=== PATIENT | female | born 1970 | race Asian ===

== ENCOUNTER 2023-09-10 14:55 | Outpatient (AMB) | payer OTHER, SELFPAY ==
--- NOTE | 2023-09-10 14:22 | A.SPINEOV_ITS ---
Intake Visit Reasons: lumbar stenosis Intake Note: Ms. Ayers is here today c/o back pain. Line Closer Required: Yes Line Closer Name: Reji Assessment & Plan Assessment & Plan (1) Cervical myelopathy: Code(s): G95.9 - Disease of spinal cord, unspecified Category: Medical Plan Dear colleague, Thank you for referring Yadiel to our office today. She is known to our service and has been previously evaluated at [facility]. She is a pleasant 53 y/o F who comes in today with a chief complaint of neck and back pain. She reports that her neck pain began roughly 10 years ago and worsened over the course of the last year. She now is experiencing shooting pains into her left upper extremity (over her deltoid into her left elbow) and she reports a feeling of numbness in her left forearm and left hand. In addition to this she presents with low-mid back pain. She states that this too had been ongoing for many years, but became more noticeable in the last few years. She reports left-sided leg pain in her left thigh and left foot. She states that positional changes do not affect her pain, but lifting does make her pain worse. She has no significant issues with walking. In the last few years she has attempted physical therapy multiple times, the last of which ended 2 months ago. She has been to field care advocate, acupuncture, and has had multiple rounds of cortisone injections. She has tried a plethora of falj-odv-skwfwgs remedies including herbal remedies without significant relief of symptoms. PMH: Bilateral carpal tunnel syndrome, patient wears wrist braces at night. Social hx: The patient does not smoke, reports no substance use. Medications: Dulcolax, Restasis, Nexplanon, meclizine, melatonin, meloxicam, omeprazole. Allergies: NKDA. Physical exam: The patient has 5/5 strength in her upper and lower extremities. She has no significant sensational deficits. Her reflexes are 3+ hyperreflexive diffusely. She is able to ambulate well and rises from a seated position without difficulty. (+) Neves's bilaterally, more noticeable on the left. (-) Lhermitte's. (-) straight leg raise bilaterally. Imaging review: MRI of the cervical spine completed at [facility] greater than 1 year ago shows mild-moderate central canal and foraminal stenosis at C4-5 and C5-6. There is loss of normal cervical lordosis, which is also seen on x-ray imaging of the cervical spine which we reviewed that was completed at [facility]. MRI of the lumbar spine completed at [facility] shows severe left-sided foraminal stenosis at L4-5, and moderate central canal stenosis at this level. Impression: Andria is a pleasant 53-year-old female who comes in today with a chief complaint of both back and neck pain. In regards to her neck, I am concerned that she has having a radiculopathy into her left upper extremity and also has hyperreflexia and Neves's sign on exam. Her imaging of the cervical spine is more than 1-year-old, and when reviewing exam she had completed by the neurosurgery service at [facility] [place] after this MRI, it does not appear she had my elopathic reflexes. I would like to have a repeat cervical MRI completed to rule out an new / acute spinal cord impingement. For her back, it does appear that she has severe left-sided foraminal stenosis at L4-5. This is likely causing her thigh and foot pain on the left. This is definitely something that we would typically addressed surgically, with something such as an L4-5 left- sided lumbar decompression. Before discussing this, I would like to have the patient complete her cervical spine MRI to rule out a more serious pathology. We will see her back in the clinic to discuss her MRI results after it is completed. Thank you for allowing us to care for your patient. The total time spent with this visit with this patient was 65 minutes reviewing history, physical exam, MRI cervical spine, lumbar spine, and x-ray imaging review, and implementation of treatment plan or further diagnostic testing Miguel Rivas MD,PhD [facility] Orders: Orders MR cervical spine wo con Today G95.9 - Disease of spinal cord, unspecified Coding Level of Care Code New Pt Level 5 (38109) Diagnoses Cervical myelopathy G95.9
== END 2023-09-10 15:21 | disposition home or self-care (01) ==
PROVIDERS: PCP Internal Medicine; Referring Provider Physician Assistant; Visit Provider Physician Assistant
DX: G95.9 Disease of spinal cord, unspecified (principal)
CPT/HCPCS: 99205

== ENCOUNTER → 2023-09-10 14:55 | Outpatient (BNVA) | payer OTHER, SELFPAY | PROVIDERS: PCP Internal Medicine; Referring Provider Physician Assistant; Visit Provider Physician Assistant | DX: G95.9 Disease of spinal cord, unspecified (principal); M54.2 Cervicalgia | CPT/HCPCS: 99202 ==

== ENCOUNTER 2023-09-23 19:24 | Outpatient (REF) | payer OTHER, SELFPAY ==
--- NOTE | ~2023-09-23 | MR_ITS ---
EXAMINATION: MR CERVICAL SPINE WITHOUT CONTRAST CLINICAL INFORMATION: 53-year-old with self-reported neck pain and bilateral hand numbness of chronic duration. Diseases of spinal cord, unspecified. COMPARISON: None available. TECHNIQUE: MRI of the cervical spine was obtained using routine sequences without contrast. FINDINGS: Alignment: There is moderate reversal of the normal cervical lordotic curvature centered at C4. There is slight retrolisthesis at C5-C6. Craniocervical Junction/C1-C2 Articulations: Intact and aligned. Visualized Intracranial Structures: Within normal limits. Vertebral Bodies: Vertebral body heights are well-maintained. Disc Spaces and Endplates: The intervertebral disc space heights are well-maintained. There are minor degrees of anterior marginal endplate spurring between at C4-C5 and C6-C7 inclusive. There is minimal dystrophic calcification or ossification of the anterior longitudinal ligament at these levels. Bone Marrow: Minimal marrow edema noted in the dens, which is nonspecific. No other bone marrow edema and no suspicious marrow replacing process. C2-C3: No disc herniation or canal stenosis. Hmcv-yr-hbtzkgvq facet joint arthrosis on the right is noted with iyvc-in-lejkjjbp right-sided neural foraminal stenosis. C3-C4: Central to left central disc herniation noted with flattening of the ventral dural sac centrally and slightly asymmetric to the left, with slight ventral cord deformity/impingement associated with mild spinal canal stenosis. Minor facet joint arthropathy on the left with minor uncinate process spurring bilaterally without significant neural foraminal stenosis. C4-C5: Small central disc herniation with mild indentation of the ventral thecal sac centrally without cord impingement. There is a slight degree of ventral cord deformity centrally, likely chronic, which may be related to combination of lordotic reversal and/or previous cord impingement. No significant spinal canal stenosis. Uncovertebral spurring is noted bilaterally with pklt-bu-vwggullo facet joint arthropathy, with borderline right and mild left-sided foraminal narrowing. C5-C6: Broad-based central disc herniation, with the flattening the ventral dural sac noted without cord impingement or canal stenosis. Uncovertebral spurring is noted with bilateral facet joint arthropathy, with moderate right-sided neural foraminal stenosis. C6-C7: Broad-based central to right paramedian disc protrusion, with flattening of the ventral dural sac without cord impingement. Ligamentum flavum thickening is noted with mild spinal canal stenosis. Uncovertebral spurring and facet joint arthropathy noted bilaterally with moderate bilateral neural foraminal stenosis. C7-T1: Tiny central disc protrusion noted. No cord impingement or canal stenosis. No significant DJD or neural foraminal stenosis. Small perineural cyst noted in the left neural foramen. T1-T2: No disc herniation or canal stenosis. No significant DJD or neuroforaminal stenosis. Spinal Cord: Allowing for artifacts, the cervical and visualized upper thoracic spinal cord demonstrates no definite focal lesion, edema or syrinx. Extracranial Soft Tissues: The visualized extracranial head/neck soft tissues are unremarkable within the limitations of the study. Signal voids are seen in the visualized major neck vessels. MR/MR cervical spine wo con IMPRESSION: 1. Lordotic reversal centered at C4 with slight retrolisthesis at C5-C6. 2. Multilevel central disc herniations as described above, with slight ventral cord deformity/impingement on the left at C3-C4 and slight ventral cord deformity centrally at C4-C5, likely chronic. Mild spinal canal stenosis at C3-C4 and C6-C7. 3. Multilevel DJD as described above with gdjf-kd-mjogdzvn right-sided neural foraminal stenosis at C2-C3, mild left-sided neural foraminal stenosis at C4-C5, moderate right-sided neural foraminal stenosis at C5-C6 and moderate bilateral neural foraminal stenosis at C6-C7. 4. Minimal nonspecific marrow edema in the dens, likely reactive.
== END 2023-09-23 19:25 | disposition home or self-care (01) ==
LOC: HO.MRI 19:24
PROVIDERS: Visit Provider Physician Assistant
DX: G95.9 Disease of spinal cord, unspecified (principal)
CPT/HCPCS: 72141

== ENCOUNTER 2023-10-20 14:03 | Outpatient (AMB) | payer OTHER, SELFPAY ==
--- NOTE | 2023-10-20 14:26 | HO.SPINEOV ---
Intake Visit Reasons: MRI follow up Intake Note: Ms. Ayers is here today for MRI F/u Six Color Press Operator Required: No Assessment & Plan Assessment & Plan (1) Lumbar stenosis with neurogenic claudication: Code(s): M48.062 - Spinal stenosis, lumbar region with neurogenic claudication Category: Medical Plan HPI: Yadiel is a pleasant 53 y/o F who comes in today for a follow-up visit after having a cervical MRI completed, secondary to possible myelopathic reflexes discovered on exam, alongside cervical and thoracic neck pain. We were previously planning on addressing the severe left-sided foraminal stenosis at L4-5, as she has disclosed symptoms of both neurogenic claduication (can't walk for more than 2-3 minutes without needing to rest) and shooting radiculopathy down her left leg. However, I wanted to ensure there was no causative agent for her hyperreflexia and (+) Neves's sign on exam. Imaging review: We reviewed the cervical MRI together which shows some straightening of the normal lordotic curvature starting around C4, but aside from that there is no significant central canal or foraminal stenosis. When discussing these results with Yadiel she continues to express concerns regarding pains in her lower neck and middle back. She points to her lower cervical / upper thoracic spine when describing these pains. She does report that they feel like they wrap around the sides of her body towards her abdomen / chest. Exam: She continues to have hyperreflexia and a weakly positive Neves's on exam. She ambulates well and rises from a seated position without difficulty. No gait spasticity. She also has what I would call 1 beat of clonus when testing her bilateral feet. (-) Babinski's bilaterally. Plan: The patient could either have a strangely confounded physical exam as a result of some source of secondary tendon hyper spasticity, or she could have a true myelopathy. She does have a history of scoliosis and states she has not had a thoracic MRI completed in many years. Her lumbar spine MRI is also more than 2 years old per her report. When reviewing the MRI that was done 2 years prior to that her stenosis had significantly progressed at L4-5, and I have reason to believe that it has gotten worse as she is now reporting significant neurogenic claudication with difficulty ambulating for more than 2-3 minutes until she has to rest or lean over something to mitigate her symptoms. Thus, I will be ordering her both a thoracic MRI and a lumbar MRI for the dual purpose of ruling out a myelopathy completely, and obtaining updated imaging of her severe stenosis at L4-5 so we can make a surgical decision for her. Total amount of time spent in this visit was 30 minutes in discussion of symptoms, MRI imaging results and subsequent plan of care Miguel Rivas MD,PhD [facility] Orders: Orders MR lumbar spine wo con Today M48.062 - Spinal stenosis, lumbar region with neurogenic claudication MR thoracic spine wo con Today G95.9 - Disease of spinal cord, unspecified Coding Level of Care Code Est Pt Level 4 (30426) Diagnoses Lumbar stenosis with neurogenic claudication M48.062
== END 2023-10-20 14:43 | disposition home or self-care (01) ==
PROVIDERS: PCP Internal Medicine; Visit Provider Physician Assistant
DX: M48.062 Spinal stenosis, lumbar region with neurogenic claudication (principal)
CPT/HCPCS: 99214

== ENCOUNTER → 2023-10-20 14:03 | Outpatient (BNVA) | payer OTHER, SELFPAY | PROVIDERS: PCP Internal Medicine; Visit Provider Physician Assistant | DX: M48.062 Spinal stenosis, lumbar region with neurogenic claudication (principal) | CPT/HCPCS: 99212 ==

== ENCOUNTER 2023-12-08 17:48 | Outpatient (REF) | payer OTHER, SELFPAY ==
--- NOTE | ~2023-12-08 | MR_ITS ---
EXAMINATION: MR THORACIC SPINE WITHOUT CONTRAST MR LUMBAR SPINE WITHOUT CONTRAST CLINICAL INFORMATION: Neck pain, spinal stenosis, neurogenic claudication COMPARISON: None. TECHNIQUE: MRI of the thoracic and lumbar spine was obtained using routine sequences without the administration of intravenous contrast. FINDINGS: MRI THORACIC SPINE: Straightening of the normal thoracic kyphosis. No significant spondylolisthesis. Thoracic vertebral body heights are maintained. No expansile or destructive osseous lesion. The thoracic spinal cord is normal in signal intensity. No significant spinal canal or neural foraminal stenosis. MRI LUMBAR SPINE: This examination assumes the presence of 5 lumbar type vertebral bodies. For the purposes of this examination, the L5-S1 intervertebral disc space is visualized on axial series 5 image 25. The normal lumbar lordosis is preserved. Shallow levocurvature of the lumbar spine. Trace retrolisthesis of L4-L5. Multilevel Schmorl's nodes are noted. Otherwise, lumbar vertebral body heights are maintained. Mild endplate edema along the inferior left aspect of L4. The conus medullaris and cauda equina nerve roots are unremarkable; the conus terminates at the level of L1. L1-L2: Trace annular bulge and mild facet arthropathy. The spinal canal and neural foramen are patent. L2-L3: Trace disc bulge. Facet arthropathy with ligamentum flavum redundancy. The spinal canal and neural foramen remain patent. L3-L4: Disc bulge. Facet arthropathy with ligamentum flavum redundancy. The spinal canal and right neural foramen are patent. Mild narrowing of the left neural foramen. L4-L5: Disc bulge with right far lateral and foraminal annular fissure. Additional left subarticular annular fissure and left foraminal disc protrusion. Facet arthropathy with ligamentum flavum redundancy. Narrowing left greater than right lateral recesses with abutment of the descending left greater than right L5 nerve roots. Mild to moderate central canal stenosis. Mild to moderate left greater than right neural foraminal stenosis. L5-S1: Facet arthropathy ligamentum flavum redundancy. The spinal canal and neural foramen are patent. MR/MR thoracic spine wo con IMPRESSION: No significant spinal canal or neural foraminal stenosis in the thoracic spine. At L4-L5 there is a disc bulge with mild to moderate spinal canal stenosis and narrowing of the left greater than right lateral recess with abutment of the descending left greater than right L5 nerve roots. Electronically signed by: Aravind Bergman MD 01/07/2024 10:36 PM EDT RP
== END 2023-12-08 17:49 | disposition home or self-care (01) ==
LOC: HO.MRI 17:48
PROVIDERS: PCP Internal Medicine; Visit Provider Physician Assistant
DX: M48.062 Spinal stenosis, lumbar region with neurogenic claudication (principal); G95.9 Disease of spinal cord, unspecified
CPT/HCPCS: 72146; 72148

== ENCOUNTER → 2024-01-18 15:32 | Outpatient (BNVA) | payer OTHER, SELFPAY | PROVIDERS: PCP Internal Medicine; Visit Provider Physician Assistant | DX: M54.50 Low back pain, unspecified (principal) | CPT/HCPCS: 99212 ==

== ENCOUNTER 2024-05-24 14:56 | Outpatient (AMB) | payer OTHER, SELFPAY ==
--- NOTE | 2024-05-24 14:57 | HO.SPINEOV ---
Intake Visit Reasons: discuss ordering EMG Intake Note: Ms. Guerra is here to discuss ordering an EMG. Branch Manager Required: Yes Branch Manager Services: Branch Manager Present Branch Manager Name: Reji Assessment & Plan Assessment & Plan (1) Hypoesthesia of skin: Code(s): R20.1 - Hypoesthesia of skin Category: Medical Plan HPI: Yadiel comes back in to see us again today after being evaluated by [facility]. They recommended an EMG to r/o carpal tunnel syndrome which they believe is causing her hand tingling / numbness. They did not comment on any other physical exam findings. She reports that she continues to have mid-thoracic back pain, despite a unremarkable MRI of the thoracic spine completed back in November. Exam: Yadiel has 5/5 strength in her upper extremities. (+) Tinel's at the wrist on the right, (+) Phalen's on the right. (-) Neves's, (-) Clonus. Plan: I will order Yadiel an EMG of the upper extremities to evaluate for any median or brachial plexus neuropathy. I will call her after this is complete with the results. Miguel Rivas MD,PhD [facility] Orders: Orders NE electromyogram (EMG) Today R20.1 - Hypoesthesia of skin Coding Level of Care Code Est Pt Level 2 (29944) Diagnoses Hypoesthesia of skin R20.1
--- OUTSIDE RECORDS SUMMARY | 2024-05-24 14:59 | XMS_ITS | Data Portability ---
Author Organization JUAN A Dowell s, [address] Address [address] [place] [address] Care Team Providers Care Ross Carrier Driver Name Role Phone [facility] Care Provider Assessment No assessment recorded. Plan of Treatment Reminders Order Date Submit Date Provider Last Modified By Organization Details Last Modified Time Details Appointments None recorded. Lab urinalysis, dipstick 2023 024 [email or web address] [facility], [address] [place], [address], 4 10:58:11 CMP, serum or plasma 2023 024 [facility], [address] [place] [address], [place], [address], 4 06:07:45 Referral emergency medicine referral [email or web address] [facility], [address] [place], [address], 4 15:00:03 Procedures cerumen removal (PROC) 2022 023 [email or web address] Not available 3 07:53:33 Surgeries None recorded. Imaging XR, neck, soft tissue - r/o foreign body (chicken bone), air in soft tissue 2023 024 acardinal 3 [facility], [address] [place] [address]., [place], [address], 4 15:00:03 Medication Orders meclizine 25 mg tablet 2022 023 [facility][id number], [address] [place] [address], [address], 3 09:04:06 prednisone 20 mg tablet 2022 023 [email or web address] 31 [facility] #[id number], [address] [place] [address], [address], 4 10:40:52 fexofenadin e-pseudoeph edrine ER 180 mg-240 mg tablet,ext. release 24 hr 2022 023 BALJIT [facility] #[id number], [address] [place] [address], [address], 3 09:41:03 Patient TargetsNo targets recorded. Patient Instructions Encounter Date Encounter Id Patient Instructions Last Modified By Organization Details Last Modified Time 10/14/2022 [id number] earwax blockage: care instructions [email or web address] Not available 10/14/2022 11:30:52 tinnitus: care instructions [email or web address] Not available 10/14/2022 11:37:19 tinnitus information [email or web address] Not available 10/14/2022 11:37:19 Your earwax was completely removed and does not appear to be the cause of your tinnitus. Keep the appointment that you have scheduled for 10/29/22 with your ENT doctor. See printed instructions. Seek Emergency Medical evaluation for any worsening symptoms. [email or web address] Not available 10/14/2022 11:58:14 10/26/2022 [id number] dizziness: care instructions Not available 10/26/2022 09:41:00 tinnitus: care instructions Not available 10/26/2022 09:41:00 11/01/2022 [id number] benign paroxysma l positional vertigo (bppv): care instructions Not available 11/01/2022 08:55:57 tinnitus: care instructions Not available 11/01/2022 08:55:57 You have some retraction of your ear drum on the right side which may or may not be contributing to your symptoms. It is sometimes difficult to treat and often resolves itself given time. In the mean time we are going to try and target and treat your dizziness wiht medication. Please follow up with your PCP and /or ENT providers Not available 11/01/2022 08:55:56 09/28/2023 [id number] You have been advised to go now to the Emergency Department for further evaluation of a foreign body (?chicken bone) in your throat. [facility] ER has been advised of your impending arrival. Do not eat or drink anything until cleared by ER staff. You evaluation, treatment and final disposition will be determined by ER staff. [email or web address] Not available 09/28/2023 14:53:52 02/01/2024 [id number] frequent urination: care instructions [email or web address] Not available 02/01/2024 10:58:09 Reason for Referral Emergency Medicine Referral for Foreign body in pharynx Hypopharyngeal foreign body ? chicken bone since last night Referring Physician: Mitzy Ellsworth, Urgent Care, Encounter Date: 09/28/2023 Results Created Date Observation Date Name Description Value Unit Range Abnormal Flag Note LastModifiedBy Organization Detail LastModifiedTime 02/01/2002/02/2024 COMP. METAB OLIC PANEL (14) glucose 105 mg/dL 70-99 above high normal Not Available [facility] ([facility]) [address] [place], [address], 02/02/2024 06:07:45 02/01/20 24 02/02/2024 COMP. METAB OLIC PANEL (14) BUN 11 mg/dL 6-24 normal Not Available [facility] ([facility]) [address] [place], [address], 02/02/2024 06:07:45 02/01/20 24 02/02/2024 COMP. METAB OLIC PANEL (14) creatinine 0.58 mg/dL 0.57-1 .00 normal Not Available [facility] ([facility]) [address] [place], [address], 02/02/2024 06:07:45 02/01/20 24 02/02/2024 COMP. METAB OLIC PANEL (14) eGFR 109 mL/mi n/1.7 3 >59 normal Not Available [facility] ([facility]) [address] [facility], [place], [address], 02/02/2024 06:07:45 02/01/20 24 02/02/2024 COMP. METAB OLIC PANEL (14) BUN/creatini ne ratio 19 9-23 normal Not Available [facility] ([facility]) [address] [facility], [place], [address], 02/02/2024 06:07:45 02/01/20 24 02/02/2024 COMP. METAB OLIC PANEL (14) sodium 142 mmol/ L 134-14 4 normal Not Available [facility] ([facility]) [address] [facility], [place], [address], 02/02/2024 06:07:45 02/01/20 24 02/02/2024 COMP. METAB OLIC PANEL (14) potassium 4.2 mmol/ L 3.5-5. 2 normal Not Available [facility] ([facility]) [address] [facility], [place], [address], 02/02/2024 06:07:45 02/01/20 24 02/02/2024 COMP. METAB OLIC PANEL (14) chloride 102 mmol/ L 96-106 normal Not Available [facility] ([facility]) [address] [facility], [place], [address], 02/02/2024 06:07:45 02/01/20 24 02/02/2024 COMP. METAB OLIC PANEL (14) carbon dioxide, total 26 mmol/ L 20-29 normal Not Available [facility] ([facility]) [address] [facility], [place], [address], 02/02/2024 06:07:45 02/01/20 24 02/02/2024 COMP. METAB OLIC PANEL (14) calcium 9.9 mg/dL 8.7-10 .2 normal Not Available [facility] ([facility]) [address] [facility] [place], [address], 02/02/2024 06:07:45 02/01/20 24 02/02/2024 COMP. METAB OLIC PANEL (14) protein, total 7.2 g/dL 6.0-8. 5 normal Not Available [facility] ([facility]) [address] [facility] [place], [address], 02/02/2024 06:07:45 02/01/20 24 02/02/2024 COMP. METAB OLIC PANEL (14) albumin 4.8 g/dL 3.8-4. 9 normal Not Available [facility] ([facility]) [address] [facility] [place], [address], 02/02/2024 06:07:45 02/01/20 24 02/02/2024 COMP. METAB OLIC PANEL (14) globulin, total 2.4 g/dL 1.5-4. 5 Not Available [facility] ([facility]) [address] [place], [address], 02/02/2024 06:07:45 02/01/20 24 02/02/2024 COMP. METAB OLIC PANEL (14) bilirubin, total 0.8 mg/dL 0.0-1. 2 normal Not Available [facility] ([facility]) [address] [place], [address], 02/02/2024 06:07:45 02/01/20 24 02/02/2024 COMP. METAB OLIC PANEL (14) alkaline phosphatase 98 IU/L 44-121 normal Not Available [facility] [address] [facility] [place], [address], 02/02/2024 06:07:45 02/01/20 24 02/02/2024 COMP. METAB OLIC PANEL (14) AST (SGOT) 20 IU/L 0-40 normal Not Available [facility] ([facility]) [address] [facility], [place], [address], 02/02/2024 06:07:45 02/01/20 24 02/02/2024 COMP. METAB OLIC PANEL (14) ALT (SGPT) 16 IU/L 0-32 normal Not Available [facility] ([facility]) [address] [facility], [place], [address], 02/02/2024 06:07:45 02/01/20 24 02/01/2024 urina lysis , dipst ick Unknown Analyte Normal = light yellow Not Available [address] [place], [address], 02/01/2024 10:41:35 02/01/20 24 02/01/2024 urina lysis , dipst ick Unknown Analyte Normal = clear Not Available [address] [place], [address], 02/01/2024 10:41:35 02/01/20 24 02/01/2024 urina lysis , dipst ick Unknown Analyte Normal = negati ve Not Available [address] [place], [address], 02/01/2024 10:41:35 02/01/20 24 02/01/2024 urina lysis , dipst ick Unknown Analyte Negati ve Not Available [address] [place], [address], 02/01/2024 10:41:35 02/01/20 24 02/01/2024 urina lysis , dipst ick Unknown Analyte Normal = Negati ve Not Available [address] [place], [address], 02/01/2024 10:41:35 02/01/20 24 02/01/2024 urina lysis , dipst ick Unknown Analyte Negati ve Not Available [address] [place], [address], 02/01/2024 10:41:35 02/01/20 24 02/01/2024 urina lysis , dipst ick Unknown Analyte Normal = Negati ve Not Available [address] [place], [address], 02/01/2024 10:41:35 02/01/20 24 02/01/2024 urina lysis , dipst ick Unknown Analyte Negati ve Not Available [address] [place], [address], 02/01/2024 10:41:35 02/01/20 24 02/01/2024 urina lysis , dipst ick Unknown Analyte Normal = 1.010, 1.015, 1.020 Not Available [address] [place], [address], 02/01/2024 10:41:35 02/01/20 24 02/01/2024 urina lysis , dipst ick Unknown Analyte Normal = Negati ve Not Available [address] [place], [address], 02/01/2024 10:41:35 02/01/20 24 02/01/2024 urina lysis , dipst ick Unknown Analyte Trace- lysed Not Available [address] [place], [address], 02/01/2024 10:41:35 02/01/20 24 02/01/2024 urina lysis , dipst ick Unknown Analyte Normal = 6.5, 7.0, 7.5, 8.0 Not Available [address] [place], [address], 02/01/2024 10:41:35 02/01/2002/01/2024 urina lysis , dipst ick Unknown Analyte Normal = Negati ve Not Available [address] [place], [address], 02/01/2024 10:41:35 02/01/20 24 02/01/2024 urina lysis , dipst ick Unknown Analyte Negati ve Not Available [address] [place], [address], 02/01/2024 10:41:35 02/01/20 24 02/01/2024 urina lysis , dipst ick Unknown Analyte Normal = 0.2, 1.0 Not Available [address] [place], [address], 02/01/2024 10:41:35 02/01/20 24 02/01/2024 urina lysis , dipst ick Unknown Analyte Normal = Negati ve Not Available [address] [place], [address], 02/01/2024 10:41:35 02/01/2002/01/2024 urina lysis , dipst ick Unknown Analyte Negati ve Not Available [address] [place], [address], 02/01/2024 10:41:35 02/01/2002/01/2024 urina lysis , dipst ick Unknown Analyte Normal = Negati ve Not Available [address] [place], [address], 02/01/2024 10:41:35 02/01/20 24 02/01/2024 urina lysis , dipst ick Unknown Analyte Negati ve Not Available [address] [place], [address], 02/01/2024 10:41:35 02/01/20 24 02/01/2024 urina lysis , dipst ick Unknown Analyte Yellow Not Available [address] [place] [address] [address] [place], [address], 02/01/2024 10:41:35 02/01/20 24 02/01/2024 urina lysis , dipst ick Unknown Analyte Clear Not Available [address] [place] [address] [address] [place], [address], 02/01/2024 10:41:35 02/01/20 24 02/01/2024 urina lysis , dipst ick Unknown Analyte 1.015 Not Available [address] [place] [address] [address] [place], [address], 02/01/2024 10:41:35 02/01/20 24 02/01/2024 urina lysis , dipst ick Unknown Analyte 7.0 Not Available [address] [place] [address] [address] [place], [address], 02/01/2024 10:41:35 02/01/20 24 02/01/2024 urina lysis , dipst ick Unknown Analyte 0.2 E.U./d L Not Available [address] [place], [address], 02/01/2024 10:41:35 09/28/19 24 09/28/2023 XR, neck, soft tissu e No observ ation record ed. [facility] [address] [place], [address], 09/28/2023 15:11:14 Result Notes None recorded. Problems Name Problem SNOMED Code Status Onset Date Resolution Date Notes Provider Name and Address Organization Details Recorded Time Chronic back pain 410961149 Active 2016 JUAN A Adams [facility] 3 10:50:30 Chronic neck pain 8017042324340 Active 1982 40x years JUAN A Adams [facility] 3 10:50:51 Problem Notes None recorded. Procedures Surgical History Date Name Laterality Status Provider Name and Address Organization Details Recorded Time Cerumen Removal by Irrigation completed ALANIS Hsieh [facility] 10/14/2022 11:48:01 Imaging Results Imaging Date Name Status LastModified by Organ ation Details LastModified Time 09/28/2023 XR, neck, soft tissue completed [email or web address] [facility] [address] [place], [address], 09/28/2023 15:11:14 Procedure Notes None recorded. Medical Equipment None Reported. Allergies No known drug allergies Medications Name Sig Start Date Stop Date Status Note LastModified by Organization Details LastModified Time prednisone 20 mg tablet TAKE 2 TABLETS BY MOUTH EVERY DAY FOR 5 DAYS 01/31 completed Not Available Not Available Not Available prednisolon e acetate 1 % eye drops,suspe nsion INSTILL 1 DROP INTO BOTH EYES THREE TIMES A DAY FOR 1 WEEKS THEN D/C 10/14 completed Not Available Not Available Not Available meclizine 25 mg tablet TAKE 1 TABLET BY MOUTH 2 TIMES DAILY NEEDED FOR DIZZINESS . active Not Available Not Available No t Available omeprazole 20 mg capsule,del ayed release TAKE 1 CAPSULE BY MOUTH EVERY DAY active Not Available Not Available No t Available hydroxyzine HCl 25 mg tablet TAKE 1 TABLET BY MOUTH EVERYDAY AT BEDTIME active Not Available Not Available No t Available bisacodyl 5 mg tablet,kristine yed release TAKE 2 TABLETS BY MOUTH RIGHT BEFORE YOUR FIRST DOSE OF LIQUID PREP. 10/14 completed Not Available Not Available Not Available azithromyci n 500 mg tablet TAKE 1 TABLET BY MOUTH TWICE A DAY 10/26 completed Not Available Not Available Not Available cyclobenzap rine 5 mg tablet TAKE 1 TABLET BY MOUTH EVERY DAY FOR 10 DAYS 10/14 completed Not Available Not Available Not Available Restasis 0.05 % eye drops in a dropperette INSTILL 1 DROP INTO BOTH EYES TWICE A DAY active Not Available Not Available No t Available fexofenadin e-pseudoeph edrine ER 180 mg-240 mg tablet,ext. release 24 hr Take 1 tablet every day by oral route for 5 days. 2022 active Not Available Not Available Not Avai lable Fish Oil active Not Available Not Avai lable Not Available melatonin 5 mg tablet TAKE 1 TABLET BY MOUTH EVERYDAY AT BEDTIME active Not Available Not Available No t Available Gavilyte-C 240 gram-22.72 gram-6.72 gram-5.84 gram oral solution STARTING AT 6PM THE NIGHT BEFORE PROCEDURE DRINK 1 8OZ GLASSES AT OWN PACE UNTIL RECTALS RUN CLEAR. 10/14 completed Not Available Not Available Not Available Multi Vitamin active Not Available Not Available Not Available Vitals Date Recorded Oxygen saturation Oxygen saturation in Arterial blood by Pulse oximetry Heart rate Respiratory rate Body temperature Body height Body mass index (BMI) Body weight Systolic blood pressure Diastolic blood pressure Provider Name and Address Organization Details Last Updated DateTime 3 99 % 99 % 68 /min 16 /min 98 [degF] 165.1 cm 20.3 kg/m2 30894.2 7 g 114 mm[Hg] 73 mm[Hg] LIYA FREITAS [place] - [facility] 3 10:52:21 Date Recorded Body height Body mass index (BMI) Body weight Oxygen saturation Oxygen saturation in Arterial blood by Pulse oximetry Heart rate Respiratory rate Body temperature Systolic blood pressure Diastolic blood pressure Provider Name and Address Organization Details Last Updated DateTime 3 165.1 cm 20 kg/m2 69488.0 8 g 100 % 100 % 77 /min 18 /min 97.9 [degF] 120 mm[Hg] 81 mm[Hg] JEREMI ALDANA [place] - [facility] 3 09:10:28 Date Recorded Body height Body mass index (BMI) Body weight Oxygen saturation Oxygen saturation in Arterial blood by Pulse oximetry Heart rate Respiratory rate Body temperature Systolic blood pressure Diastolic blood pressure Provider Name and Address Organization Details Last Updated DateTime 3 165.1 cm 20 kg/m2 30296.0 8 g 100 % 100 % 71 /min 18 /min 97.7 [degF] 128 mm[Hg] 87 mm[Hg] JEREMI [place]DA[place] [facility] 3 08:26:38 Date Recorded Body height Body mass index (BMI) Body weight Oxygen saturation Oxygen saturation in Arterial blood by Pulse oximetry Heart rate Respiratory rate Body temperature Systolic blood pressure Diastolic blood pressure Provider Name and Address Organization Details Last Updated DateTime 4 165.1 cm 20.5 kg/m2 01512.8 6 g 97 % 97 % 76 /min 18 /min 97.9 [degF] 132 mm[Hg] 84 mm[Hg] Lyn Noel [place] [facility] 4 13:55:17 Date Recorded Body height Body mass index (BMI) Body weight Oxygen saturation Oxygen saturation in Arterial blood by Pulse oximetry Heart rate Respiratory rate Body temperature Systolic blood pressure Diastolic blood pressure Provider Name and Address Organization Details Last Updated DateTime 4 165.1 cm 20.5 kg/m2 94574.8 6 g 100 % 100 % 69 /min 18 /min 98.7 [degF] 134 mm[Hg] 88 mm[Hg] Lyn Noel [facility] 4 10:41:17 Social History Question Answer Notes LastModified by Organizat ion Details LastModified Time Tobacco Smoking Status Never Smoker LIYA vale [place] - [facility] 10/14/2022 10:51:04 What Is Your Level Of Alcohol Consumption? None Information not available 10/14/2022 Have You Had A Flu Shot This Season? Yes [email or web address] Information not available 09/28/2023 What Was The Date Of Your Most Recent Tobacco Screening? 02/01/2024 [email or web address] Information not available 02/01/2024 Do You Use Any Illicit Or Recreational Drugs? No Information not available 10/14/2022 Have You Recently Traveled Abroad? No [email or web address] Information not available 09/28/2023 Do You Or Have You Ever Used Any Other Forms Of Tobacco Or Nicotine? No Information not available 10/14/2022 Sex: Unknown Functional Status None recorded. Mental Status None recorded. Family History Relationship Description Onset Age of this Age Resolved Age Notes LastModified by Organization Details LastModified Time Father No current problems or disability [email or web address] Not available 10/26 09:07:52 Mother No current problems or disability [email or web address] Not available 10/26 09:07:52 Medical History No medical history recorded. Gynecological History Statement/Question Response Date of LMP Is there any chance of ? No LMP N/A Obstetrics History GPAL:G 0 P 0 0 0 0 Immunizations Vaccine Type Date Status Note Provider Nam e and Address Organization Details Recorded Time Influenza, MDCK, quadrivalent, PF 9 completed JEREMI DEPINTO null, [place] - [facility] 10/26/2022 09:06:55 Influenza, MDCK, quadrivalent, PF 2 completed JEREMI DEPINTO null, [place] - [facility] 10/26/2022 09:06:55 Influenza, MDCK, quadrivalent, PF 7 completed JEREMI DEPINTO null, [place] - [facility] 10/26/2022 09:06:55 zoster recombinant 2 completed JEREMI DEPINTO null, [place] - [facility] 10/26/2022 09:06:55 zoster recombinant 2 completed JEREMI DEPINTO null, [place] - [facility] 10/26/2022 09:06:55 COVID-19, mRNA, LNP-S, PF, 30 mcg/0.3 mL dose 1 completed JEREMI DEPINTO null, [place] - [facility] 10/26/2022 09:06:55 COVID-19, mRNA, LNP-S, PF, 30 mcg/0.3 mL dose 1 completed JEREMI DEPINTO null, [place] - [facility] 10/26/2022 09:06:55 COVID-19, mRNA, LNP-S, PF, 30 mcg/0.3 mL dose 1 completed JEREMI DEPINTO null, [place] - [facility] 10/26/2022 09:06:55 Tdap 3 completed JEREMI DEPINTO null, [place] - [facility] 10/26/2022 09:06:55 Tdap 9 completed JEREMI DEPINTO null, [place] - [facility] 10/26/2022 09:06:55 Influenza, split virus, trivalent, preservative 1 completed JEREMI DEPINTO null, [place] - [facility] 10/26/2022 09:06:55 Influenza, split virus, trivalent, preservative 5 completed JEREMI DEPINTO null, [place] - [facility] 10/26/2022 09:06:55 Td (adult), 2 Lf tetanus toxoid, preservative free, adsorbed 9 completed JEREMI DEPINTO null, [place] - [facility] 10/26/2022 09:06:55 Hep A, adult 3 completed JEREMI DEPINTO null, [place] - [facility] 10/26/2022 09:06:55 Influenza, split virus, quadrivalent, PF 0 completed JEREMI DEPINTO null, [place] - [facility] 10/26/2022 09:06:55 Influenza, split virus, quadrivalent, PF 8 completed JEREMI DEPINTO null, [place] - [facility] 10/26/2022 09:06:55 Past Encounters Encounter ID Performer Location Encounter Start Date Encounter Closed Date Diagnosis/Indication Diagnosis SNOMED-CT Code Diagnosis ICD10 Code Diagnosis Note [id number] Mitzy Ellsworth MD [facility] [address] [place] [address] 10/14/2022 10:35:44 10/14/2022 11:59:32 Impacted cerumen in left ear 2257094183 278448 H61.22 Tinnitus of left ear 497 1727770 106 H93.12 [id number] Moises Tran MD [address] [facility] [address] [place] [address] 10/26/2022 08:16:59 10/26/2022 09:42:20 Middle ear effusion 1154912659 H74.8X9 Chronic middle ear effusion with Tinnitus.W ill need t make a ENT follow up.Please follow up with PCP or Urgent Care in 3-5 days if no improvemen t or if any new symptoms occur that are concerning . Benign par oxysmal positional vertigo 411934526 H81.13 Dizziness triggered by the middle ear fluid.Sarah goncalves make a follow up with ENT as soon as you can [id number] JUAN A Melvin [address] [place] [address] 11/01/2022 08:10:33 11/01/2022 09:07:36 Benign paroxysmal positional vertigo 991080582 H81.11 [id number] Mitzy Ellsworth MD [address] [facility] [place] [address] 09/28/2023 12:53:05 09/28/2023 15:00:02 Pain in throat 410767486 R07.0 Foreign cornell dy in pharynx 35951728 T17.208A Hypopharyn geal foreign body. [id number] JUAN A Henderson [address] [facility] [place] [address] 02/01/2024 10:31:22 02/01/2024 11:10:50 Increased frequency of urination 779434580 R35.0 You were seen today for increased urinary frequency and some bubbles in your urine. Your urine dip in clinic looks good. Since you are having symptoms, we will test for diabetes and make sure your kidneys are functionin g properly Please go to the ED if you start seeing blood in your urine or are haqving severe pain Paresthesia of finger 76 3334601 R20.2 You were seen today for numb feeling to fingertips on both hands. There are many things that could cause this, and we will check to make sure your electrolyt es and sugars are good. The tingling could also be coming from your neck, since you have a history issues If all your testing comes back narendra, please follow up with your primary care provider Please go to the ED if you start having increasing numbness and weakness Thank you for using [facility] today, please feel free to contact our office if you have any questions or concerns. Health Concerns Section Related Observation LastModified by Organization Detai ls LastModified Time None Recorded Concern Status LastModified by Organization Details LastModified Time None Recorded Advance Directives Directive None Recorded Payers Encounter Date Sequence Insurance Name Policy Number Policy Oliva Covered Member ID Oliva Member ID Guarantor Name 10/14/2022 1 [facility] [employer] (MEDICAID REPLACEMENT - HMO) [place]INSON Colby Guerra [id number] Cotto Leisa Guerra 10/26/2022 1 [facility] [employer] (MEDICAID REPLACEMENT - HMO) [place]INSON Colby Guerra [id number] Cotto Leisa Guerra 11/01/2022 1 [facility] [employer] (MEDICAID REPLACEMENT - HMO) [place]INSON Colby Guerra [id number] Cotto Leisa Guerra 09/28/2023 1 [facility] [employer] (MEDICAID REPLACEMENT - HMO) [place] Colby Guerra [id number] Cotto Leisa Geurra 02/01/2024 1 [facility] [employer] (MEDICAID REPLACEMENT - HMO) [place] Colby Guerra [id number] Cotto Leisa Guerra Notes Date Note Type Note Provider Name and Address Organization Details Recorded Time 10/15/19 23 text/htm l Ear Pain Brief HPIReported bypatient.Location:left Onset/Timing:started 3weeks ago Duration:Constant buzzing sound left ear. Quality:no itching; no discharge from the ears; no burning Severity:no fever;interferes with ability to sleep Context:no recent URI; no recent trauma; no recent ear infection; no recent swimming; no immunocompromise; no dental problems; no recent airplane travel; non-smoker Alleviating factors:None. Aggravating factors:None. Associated Symptoms:no cough; no jaw popping or clicking; No decreased appetite; no discharge from ear; no nasal congestion; no nasal discharge; no hearing loss; no sense of fullness; no sore throat; no dental pain; no jaw pain;tinnitus; no decreased hearing; no muffled hearingNotes:52 year old female presenting for evaluation of a constant buzzing noise in her left hear for the past 3 weeks. No fever, chills, nasal congestion, cough, headache, rash, stiff neck, swollen glands, sore throat or drainage from ear. No decreased hearing. She has an appointment scheduled for ENT on 10/29/2022. Mitzy Ellsworth MD [address] [place], [id number], [employer] [facility] 10/14/2022 12:11:37 10/27/19 23 text/htm l Dizziness UCReported bypatient.Quality:cannot identify Context:non-smoker Modifying Factors:change in position Associated Symptoms:no blurred vision; no foggy vision; no blindness; no double vision; no spots in field of vision; no eye pain; no hearing loss; no difficulty understanding speech; no ear discharge; no pressure in ears; no feelings of fullness in the ears; no earache; no unsteadiness; no anxiety or unsteady feelings; no syncope; no loss of consciousness; no headache; no head pressure; no nausea; no vomiting; no weak limbs; no facial numbness; no difficulty with speech; no dysphagia; no tingling around the mouth;ringing in the ears (tinnitus) For one month has had a buzzing in ears. seen here for wax removal 10/14 and then ENT. Has occassional dizziness with head movements Moises Tran MD [address] [place], [id number], [employer] [facility] 10/26/2022 09:53:06 11/02/19 23 text/htm l Dizziness UCReported bypatient.Quality:cannot identify Context:non-smoker Modifying Factors:change in position Associated Symptoms:no blurred vision; no foggy vision; no blindness; no double vision; no spots in field of vision; no eye pain; no hearing loss; no difficulty understanding speech; no ear discharge; no pressure in ears; no feelings of fullness in the ears; no earache; no unsteadiness; no anxiety or unsteady feelings; no syncope; no loss of consciousness; no headache; no head pressure; no nausea; no vomiting; no weak limbs; no facial numbness; no difficulty with speech; no dysphagia; no tingling around the mouth;ringing in the ears (tinnitus) For one month has had a buzzing in ears. seen here for wax removal 10/14 and then ENT. Has occassional dizziness with head movements JUAN A Soria [address] [place], [id number], [place] - [facility] 11/01/2022 09:04:18 09/28/19 24 text/htm l Sore throatReported bypatient.Source of patient informationInformation obtained from patient; Patient arrived at Urgent Care ambulatory Location:throat Severity:mild Quality:sharp; hurts to swallow Onset/Timing:Began last night while eating chicken. Believes a chicken bone is stuck in her throat. Associated Symptoms:no cough; no sputum production; no shortness of breath; no wheezing; no sinus pain; no vomiting; no nausea; No hoarseness Duration:Began last night. Context:no sick contacts; no foreign travel; non-smokerNotes:53 year old female presenting for evaluation of a foreign body sensation in the left side of her throat since last night. Symptoms began while eating chicken. She believes a chicken bone is stuck in her throat. She stuck her finger down her throat to try to remove it but was unsuccessful. She has localized pain at the left base of her throat. No fever, chills, drooling, shortness of breath. No chest pain or neck swelling. No vomiting. Mitzy Ellsworth MD [address] [place], [id number], [place] [facility] 10/05/2023 11:30:52 02/01/20 24 text/htm l 53 y/o female here with about a month of increasing urinary frequency, with bubbles in the toilet. Also with tingling to fingertips on both hands, for the past year, on and off at first, now constant JUAN A Henderson [address] [place], [id number], [place] - [facility] 02/01/2024 11:10:04 OBGyn Episode No OBEpisode recorded.
== END 2024-05-24 15:32 | disposition home or self-care (01) ==
PROVIDERS: PCP Internal Medicine; Visit Provider Physician Assistant
DX: R20.1 Hypoesthesia of skin (principal)
CPT/HCPCS: 99212

== ENCOUNTER → 2024-05-24 14:56 | Outpatient (BNVA) | payer OTHER, SELFPAY | PROVIDERS: PCP Internal Medicine; Visit Provider Physician Assistant | DX: R20.1 Hypoesthesia of skin (principal) | CPT/HCPCS: 99212 ==

== ENCOUNTER 2024-06-16 14:42 | Outpatient (REF) | payer OTHER, SELFPAY ==
--- OUTSIDE RECORDS SUMMARY | 2024-06-16 14:46 | XMS_ITS | Data Portability ---
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 Plan of Treatment Reminders Order Date Submit Date Provider Last Modified By Organization Details Last Modified Time Details Appointments None recorded. Lab urinalysis, dipstick 2023 024 [email or web address] [facility] [address], [address] [place], [address], 4 10:58:11 CMP, serum or plasma 2023 024 [facility] [facility], [address] [place] [address], [place], [address], 4 06:07:45 Referral emergency medicine referral 2023 024 [email or web address] 3 [facility] Emergency Department, [address] [place], [address], 4 15:00:03 Procedures cerumen removal (PROC) 2022 023 [email or web address] Not available 3 07:53:33 Surgeries None recorded. Imaging XR, neck, soft tissue - r/o foreign body (chicken bone), air in soft tissue 2023 024 acardinal 3 [facility], [address] [place] [address]., [place], [address], 4 15:00:03 Medication Orders prednisone 20 mg tablet 2022 023 [email or web address] 31 [facility] #[id number], [address] [place] [address], [address], 4 10:40:52 fexofenadin e-pseudoeph edrine ER 180 mg-240 mg tablet,ext. release 24 hr 2022 023 BALJIT [facility] #[id number], [address] [place] [address], [address], 3 09:41:03 meclizine 25 mg tablet 2022 023 [facility] #[id number], [address] [place] [address], [address], 3 09:04:06 Patient TargetsNo targets recorded. Patient Instructions Encounter Date Encounter Id Patient Instructions Last Modified By Organization Details Last Modified Time 10/14/2022 [id number] earwax blockage: care instructions Not available 10/14/2022 11:30:52 tinnitus: care instructions [email or web address] Not available 10/14/2022 11:37:19 tinnitus information [email or web address] Not available 10/14/2022 11:37:19 Your earwax was completely removed and does not appear to be the cause of your tinnitus. Keep the appointment that you have scheduled for 10/29/22 with your ENT doctor. See printed instructions. Seek Emergency Medical evaluation for any worsening symptoms. [email or web address] Not available 10/14/2022 11:58:14 10/26/2022 [id number] dizziness: care instructions Not available 10/26/2022 09:41:00 tinnitus: care instructions Not available 10/26/2022 09:41:00 11/01/2022 [id number] benign paroxysma l positional vertigo (bppv): care [...] ENT providers Not available 11/01/2022 08:55:56 09/28/2023 [id number] You have been advised to go now to the Emergency Department for further evaluation of a foreign body (?chicken bone) in your throat. [facility] ER has been advised of your impending arrival. Do not eat or drink anything until cleared by ER staff. You evaluation, treatment and final disposition will be determined by ER staff. [email or web address] Not available 09/28/2023 14:53:52 02/01/2024 [id number] frequent urination: care instructions [email or web address] Not available [...] 70-99 above high normal Not Available [facility] ([facility]) [address] [place], [address], 02/02/2024 06:07:45 02/01/20 24 02/02/2024 COMP. METAB OLIC PANEL (14) BUN 11 mg/dL 6-24 normal Not Available [facility] ([facility]) [address] [place], [address], 02/02/2024 06:07:45 02/01/20 24 02/02/2024 COMP. METAB OLIC PANEL (14) creatinine 0.58 mg/dL 0.57-1 .00 normal Not Available [facility] ([facility]) [address] [place], [address], 02/02/2024 06:07:45 02/01/20 24 02/02/2024 COMP. METAB OLIC PANEL (14) eGFR 109 mL/mi n/1.7 3 >59 normal Not Available [facility] ([facility]) [address] [facility], [place], [address], 02/02/2024 06:07:45 02/01/20 24 02/02/2024 COMP. METAB OLIC PANEL (14) BUN/creatini ne ratio 19 9-23 normal Not Available [facility] ([facility]) [address] [facility], [place], [address], 02/02/2024 06:07:45 02/01/20 24 02/02/2024 COMP. METAB OLIC PANEL (14) sodium 142 mmol/ L 134-14 4 normal Not Available [facility] ([facility]) [address] [facility], [place], [address], 02/02/2024 06:07:45 02/01/20 24 02/02/2024 COMP. METAB OLIC PANEL (14) potassium 4.2 mmol/ L 3.5-5. 2 normal Not Available [facility] ([facility]) [address] [facility], [place], [address], 02/02/2024 06:07:45 02/01/20 24 02/02/2024 COMP. METAB OLIC PANEL (14) chloride 102 mmol/ L 96-106 normal Not Available [facility] ([facility]) [address] [facility], [place], [address], 02/02/2024 06:07:45 02/01/20 24 02/02/2024 COMP. METAB OLIC PANEL (14) carbon dioxide, total 26 mmol/ L 20-29 normal Not Available [facility] ([facility]) [address] [facility], [place], [address], 02/02/2024 06:07:45 02/01/20 24 02/02/2024 COMP. METAB OLIC PANEL (14) calcium 9.9 mg/dL 8.7-10 .2 normal Not Available [facility] ([facility]) [address] [facility] [place], [address], 02/02/2024 06:07:45 02/01/20 24 02/02/2024 COMP. METAB OLIC PANEL (14) protein, total 7.2 g/dL 6.0-8. 5 normal Not Available [facility] ([facility]) [address] [facility] [place], [address], 02/02/2024 06:07:45 02/01/20 24 02/02/2024 COMP. METAB OLIC PANEL (14) albumin 4.8 g/dL 3.8-4. 9 normal Not Available [facility] ([facility]) [address] [facility] [place], [address], 02/02/2024 06:07:45 02/01/20 24 02/02/2024 COMP. METAB OLIC PANEL (14) globulin, total 2.4 g/dL 1.5-4. 5 Not Available [facility] ([facility]) [address] [place], [address], 02/02/2024 06:07:45 02/01/20 24 02/02/2024 COMP. METAB OLIC PANEL (14) bilirubin, total 0.8 mg/dL 0.0-1. 2 normal Not Available [facility] ([facility]) [address] [place], [address], 02/02/2024 06:07:45 02/01/20 24 02/02/2024 COMP. METAB OLIC PANEL (14) alkaline phosphatase 98 IU/L 44-121 normal Not Available [facility] ([facility]) [address] [facility] [place], [address], 02/02/2024 06:07:45 02/01/20 24 02/02/2024 COMP. METAB OLIC PANEL (14) AST (SGOT) 20 IU/L 0-40 normal Not Available [facility] ([facility]) [address] [facility], [place], [address], 02/02/2024 06:07:45 02/01/20 24 02/02/2024 COMP. METAB OLIC PANEL (14) ALT (SGPT) 16 IU/L 0-32 normal Not Available [facility] ([facility]) [address] [facility], [place], [address], 02/02/2024 06:07:45 02/01/20 24 02/01/2024 urina lysis , dipst ick Unknown Analyte Normal = light yellow Not Available [address] [place], [address], 02/01/2024 10:41:35 02/01/20 24 02/01/2024 urina lysis , dipst ick Unknown Analyte Normal = clear Not Available [address] [place], [address], 02/01/2024 10:41:35 02/01/20 24 02/01/2024 urina lysis , dipst ick Unknown Analyte Normal = negati ve Not Available [address] [place], [address], 02/01/2024 10:41:35 02/01/20 24 02/01/2024 urina lysis , dipst ick Unknown Analyte Negati ve Not Available [address] [place], [address], 02/01/2024 10:41:35 02/01/20 24 02/01/2024 urina lysis , dipst ick Unknown Analyte Normal = Negati ve Not Available [address] [place], [address], 02/01/2024 10:41:35 02/01/20 24 02/01/2024 urina lysis , dipst ick Unknown Analyte Negati ve Not Available [address] [place], [address], 02/01/2024 10:41:35 02/01/20 24 02/01/2024 urina lysis , dipst ick Unknown Analyte Normal = Negati ve Not Available [address] [place], [address], 02/01/2024 10:41:35 02/01/20 24 02/01/2024 urina lysis , dipst ick Unknown Analyte Negati ve Not Available [address] [place], [address], 02/01/2024 10:41:35 02/01/20 24 02/01/2024 urina lysis , dipst ick Unknown Analyte Normal = 1.010, 1.015, 1.020 Not Available [address] [place], [address], 02/01/2024 10:41:35 02/01/20 24 02/01/2024 urina lysis , dipst ick Unknown Analyte Normal = Negati ve Not Available [address] [place], [address], 02/01/2024 10:41:35 02/01/20 24 02/01/2024 urina lysis , dipst ick Unknown Analyte Trace- lysed Not Available [address] [place], [address], 02/01/2024 10:41:35 02/01/20 24 02/01/2024 urina lysis , dipst ick Unknown Analyte Normal = 6.5, 7.0, 7.5, 8.0 Not Available [address] [place], [address], 02/01/2024 10:41:35 02/01/2002/01/2024 urina lysis , dipst ick Unknown Analyte Normal = Negati ve Not Available [address] [place], [address], 02/01/2024 10:41:35 02/01/20 24 02/01/2024 urina lysis , dipst ick Unknown Analyte Negati ve Not Available [address] [place], [address], 02/01/2024 10:41:35 02/01/20 24 02/01/2024 urina lysis , dipst ick Unknown Analyte Normal = 0.2, 1.0 Not Available [address] [place], [address], 02/01/2024 10:41:35 02/01/20 24 02/01/2024 urina lysis , dipst ick Unknown Analyte Normal = Negati ve Not Available [address] [place], [address], 02/01/2024 10:41:35 02/01/2002/01/2024 urina lysis , dipst ick Unknown Analyte Negati ve Not Available [address] [place], [address], 02/01/2024 10:41:35 02/01/2002/01/2024 urina lysis , dipst ick Unknown Analyte Normal = Negati ve Not Available [address] [place], [address], 02/01/2024 10:41:35 02/01/20 24 02/01/2024 urina lysis , dipst ick Unknown Analyte Negati ve Not Available [address] [place], [address], 02/01/2024 10:41:35 02/01/20 24 02/01/2024 urina lysis , dipst ick Unknown Analyte Yellow Not Available [id number] [place] [address] [address] [place], [address], 02/01/2024 10:41:35 02/01/20 24 02/01/2024 urina lysis , dipst ick Unknown Analyte Clear Not Available [address] [place] [address] [address] [place], [address], 02/01/2024 10:41:35 02/01/20 24 02/01/2024 urina lysis , dipst ick Unknown Analyte 1.015 Not Available [address] [place] [address] [address] [place], [address], 02/01/2024 10:41:35 02/01/20 24 02/01/2024 urina lysis , dipst ick Unknown Analyte 7.0 Not Available [address] [place] [address] [address] [place], [address], 02/01/2024 10:41:35 02/01/20 24 02/01/2024 urina lysis , dipst ick Unknown Analyte 0.2 E.U./d L Not Available [address] [place], [address], 02/01/2024 10:41:35 09/28/19 24 09/28/2023 XR, neck, soft tissu e No observ ation record ed. [email or web address] [facility] [address] [facility] [place], [address], 09/28/2023 15:11:14 Result Notes None recorded. Problems Name Problem SNOMED Code Status Onset Date Resolution Date Notes Provider Name and Address Organization Details Recorded Time Chronic back pain 422809348 Active 2016 JUAN A Adams [facility] 3 10:50:30 Chronic neck pain 5767766232232 Active 1982 40x years JUAN A Adams [facility] 3 10:50:51 Problem Notes None recorded. Procedures Surgical History Date Name Laterality Status Provider Name and Address Organization Details Recorded Time Cerumen Removal by Irrigation completed ALANIS Hsieh [facility] 10/14/2022 11:48:01 Imaging Results Imaging Date Name Status LastModified by Organ ation Details LastModified Time 09/28/2023 XR, neck, soft tissue completed [email or web address] [facility] [address] [facility] [place], [address], 09/28/2023 15:11:14 Procedure Notes None recorded. Medical [...] saturation in Arterial blood by Pulse oximetry Provider Name and Address Organization Details Last Updated DateTime 10/14/2022 99 % 99 % LIYA FREITAS PA - [facility] 10/14/2022 10:52:27 Date Recorded Heart rate Provider Name an d Address Organization Details Last Updated DateTime 10/14/2022 68 /min LIYA FREITAS PA - [facility] 10/14/2022 10:52:30 Date Recorded Pain severity - 0-10 verbal numeric rating [Score] - Reported Provider Name and Address Organization Details Last Updated DateTime 10/14/2022 0 LIYA FREITAS PA - [facility] 10/14/2022 10:52:32 Date Recorded Respiratory rate Provider Name a nd Address Organization Details Last Updated DateTime 10/14/2022 16 /min LIYA FREITAS PA - [facility] 10/14/2022 10:52:35 Date Recorded Body temperature Provider Name a nd Address Organization Details Last Updated DateTime 10/14/2022 98 [degF] LIYA FREITAS PA - [facility] 10/14/2022 10:53:21 Date Recorded Body height Provider Name an d Address Organization Details Last Updated DateTime 10/14/2022 165.1 cm LIYA FREITAS PA - [facility] 10/14/2022 10:53:22 Date Recorded Body mass index (BMI) Body weight Provider Name and Address Organization Details Last Updated DateTime 10/14/2022 20.3 kg/m2 48937.27 g LIYA FREITAS PA - [facility] 10/14/2022 10:53:26 Date Recorded Body height Provider Name an d Address Organization Details Last Updated DateTime 10/26/2022 165.1 cm JEREMI DEPINTO PA - [facility] 0 10/26/2022 09:06:24 Date Recorded Body mass index (BMI) Body weight Provider Name and Address Organization Details Last Updated DateTime 10/26/2022 20 kg/m2 65075.08 g JEREMI DEPINTO PA - [facility] 10/26/2022 09:06:36 Date Recorded Pain severity - 0-10 verbal numeric rating [Score] - Reported Provider Name and Address Organization Details Last Updated DateTime 10/26/2022 0 JEREMI DEPINTO PA - [facility] 0 10/26/2022 09:06:52 Date Recorded Oxygen saturation Oxygen saturation in Arterial blood by Pulse oximetry Provider Name and Address Organization Details Last Updated DateTime 10/26/2022 100 % 100 % JEREMI DEPINTO PA - [facility] 10/26/2022 09:10:31 Date Recorded Heart rate Provider Name an d Address Organization Details Last Updated DateTime 10/26/2022 77 /min JEREMI DEPINTO PA - [facility] 0 10/26/2022 09:10:35 Date Recorded Respiratory rate Provider Name a nd Address Organization Details Last Updated DateTime 10/26/2022 18 /min JEREMI DEPINTO PA - [facility] 0 10/26/2022 09:10:37 Date Recorded Body temperature Provider Name a nd Address Organization Details Last Updated DateTime 10/26/2022 97.9 [degF] JEREMI DEPINTO PA - [facility] 10/26/2022 09:10:40 Date Recorded Body height Provider Name an d Address Organization Details Last Updated DateTime 11/01/2022 165.1 cm JEREMI DEPINTO PA - [facility] 0 11/01/2022 08:23:52 Date Recorded Body mass index (BMI) Body weight Provider Name and Address Organization Details Last Updated DateTime 11/01/2022 20 kg/m2 94763.08 g JEREMI DEPINTO PA - [facility] 11/01/2022 08:23:57 Date Recorded Pain severity - 0-10 verbal numeric rating [Score] - Reported Provider Name and Address Organization Details Last Updated DateTime 11/01/2022 0 JEREMI DEPINTO PA - [facility] 0 11/01/2022 08:24:28 Date Recorded Oxygen saturation Oxygen saturation in Arterial blood by Pulse oximetry Provider Name and Address Organization Details Last Updated DateTime 11/01/2022 100 % 100 % JEREMI DEPINTO PA - [facility] 11/01/2022 08:26:44 Date Recorded Heart rate Provider Name an d Address Organization Details Last Updated DateTime 11/01/2022 71 /min JEREMI DEPINTO PA - [facility] 0 11/01/2022 08:26:47 Date Recorded Respiratory rate Provider Name a nd Address Organization Details Last Updated DateTime 11/01/2022 18 /min JEREMI DEPINTO PA - [facility] 0 11/01/2022 08:26:49 Date Recorded Body temperature Provider Name a nd Address Organization Details Last Updated DateTime 11/01/2022 97.7 [degF] JEREMI DEPINTO PA - [facility] 11/01/2022 08:26:52 Date Recorded Body height Provider Name an d Address Organization Details Last Updated DateTime 09/28/2023 165.1 cm Lyn Noel PA - [facility] 09/28/2023 13:53:24 Date Recorded Body mass index (BMI) Body weight Provider Name and Address Organization Details Last Updated DateTime 09/28/2023 20.5 kg/m2 48896.86 g Lyn VELAZCO - [facility] 09/28/2023 13:53:32 Date Recorded Pain severity - 0-10 verbal numeric rating [Score] - Reported Provider Name and Address Organization Details Last Updated DateTime 09/28/2023 5 Lyn Noel PA - [facility] 09/28/2023 13:55:06 Date Recorded Oxygen saturation Oxygen saturation in Arterial blood by Pulse oximetry Provider Name and Address Organization Details Last Updated DateTime 09/28/2023 97 % 97 % Lyn Noel PA - [facility] 09/28/2023 13:55:22 Date Recorded Heart rate Provider Name an d Address Organization Details Last Updated DateTime 09/28/2023 76 /min Lyn Noel PA - [facility] 09/28/2023 13:55:25 Date Recorded Respiratory rate Provider Name a nd Address Organization Details Last Updated DateTime 09/28/2023 18 /min Lyn Noel PA - [facility] 09/28/2023 13:55:34 Date Recorded Body temperature Provider Name a nd Address Organization Details Last Updated DateTime 09/28/2023 97.9 [degF] Lyn Noel PA - [facility] 09/28/2023 13:55:39 Date Recorded Body height Provider Name an d Address Organization Details Last Updated DateTime 02/01/2024 165.1 cm Lyn Noel PA - [facility] 02/01/2024 10:39:51 Date Recorded Body mass index (BMI) Body weight Provider Name and Address Organization Details Last Updated DateTime 02/01/2024 20.5 kg/m2 06847.86 g Lyn Bert PA - [facility] 02/01/2024 10:40:30 Date Recorded Oxygen saturation Oxygen saturation in Arterial blood by Pulse oximetry Provider Name and Address Organization Details Last Updated DateTime 02/01/2024 100 % 100 % Lyn Noel PA - [facility] 02/01/2024 10:40:34 Date Recorded Heart rate Provider Name an d Address Organization Details Last Updated DateTime 02/01/2024 69 /min Lyn Noel PA - [facility] 02/01/2024 10:41:21 Date Recorded Respiratory rate Provider Name a nd Address Organization Details Last Updated DateTime 02/01/2024 18 /min Lyn Noel PA - [facility] 02/01/2024 10:41:22 Date Recorded Body temperature Provider Name a nd Address Organization Details Last Updated DateTime 02/01/2024 98.7 [degF] Lyn Noel PA - [facility] 02/01/2024 10:41:23 Date Recorded Systolic blood pressure Diastolic blood pressure Provider Name and Address Organization Details Last Updated DateTime 10/14/2022 114 mm[Hg] 73 mm[Hg] LIYA FREITAS PA - [facility] 10/14/2022 10:52:21 Date Recorded Systolic blood pressure Diastolic blood pressure Provider Name and Address Organization Details Last Updated DateTime 10/26/2022 120 mm[Hg] 81 mm[Hg] JEREMI ALDANA PA - [facility] 10/26/2022 09:10:28 Date Recorded Systolic blood pressure Diastolic blood pressure Provider Name and Address Organization Details Last Updated DateTime 11/01/2022 128 mm[Hg] 87 mm[Hg] JEREMI ALDANA PA - [facility] 11/01/2022 08:26:38 Date Recorded Systolic blood pressure Diastolic blood pressure Provider Name and Address Organization Details Last Updated DateTime 09/28/2023 132 mm[Hg] 84 mm[Hg] Lyn Noel PA - [facility] 09/28/2023 13:55:17 Date Recorded Systolic blood pressure Diastolic blood pressure Provider Name and Address Organization Details Last Updated DateTime 02/01/2024 134 mm[Hg] 88 mm[Hg] Lyn Noel PA - [facility] 02/01/2024 10:41:17 Social History Question Answer Notes LastModified by Organizat ion Details LastModified Time Tobacco Smoking Status Never Smoker LIYA vale PA - [facility] 10/14/2022 10:51:04 What Is Your Level Of Alcohol Consumption? None Information not available 10/14/2022 Have You Had A Flu Shot This Season? Yes [email or web address] Information not available 09/28/2023 What Was The Date Of Your Most Recent Tobacco Screening? 02/01/2024 Information not available 02/01/2024 Do You Use Any Illicit Or Recreational Drugs? No Information not available 10/14/2022 Have You Recently Traveled Abroad? No [email or web address] Information not available 09/28/2023 Do You Or [...] SNOMED-CT Code Diagnosis ICD10 Code Diagnosis Note [id number] Mitzy Ellsworth MD [address] [address] [place] [address] 10/14/2022 10:35:44 10/14/2022 11:59:32 Impacted cerumen in left ear 7095307125 739320 H61.22 Tinnitus of left ear 421 8360340 106 H93.12 [id number] Moises Tran MD [address] [facility] [address] [place] [address] 10/26/2022 08:16:59 10/26/2022 09:42:20 Middle ear effusion 4411218712 H74.8X9 Chronic middle ear effusion with Tinnitus.W ill need t make a ENT follow up.Please follow up with PCP or Urgent Care in 3-5 days if no improvemen t or if any new symptoms occur that are concerning . Benign par oxysmal positional vertigo 477242043 H81.13 Dizziness triggered by the middle ear fluid.Sarah goncalves make a follow up with ENT as soon as you can [id number] JUAN A Melvin [address] [facility] [place] [address] 11/01/2022 08:10:33 11/01/2022 09:07:36 Benign paroxysmal positional vertigo 130200803 H81.11 [id number] Mitzy Ellsworth MD [address] [place] [address] 09/28/2023 12:53:05 09/28/2023 15:00:02 Pain in throat 088055240 R07.0 Foreign cornell dy in pharynx 92207275 T17.208A Hypopharyn geal foreign body. [id number] JUAN A Henderson [address] [place] [address] 02/01/2024 10:31:22 02/01/2024 11:10:50 Increased frequency of urination 496982996 R35.0 You were seen today for increased urinary frequency and some bubbles in your urine. Your urine dip in clinic looks good. Since you are having symptoms, we will test for diabetes and make sure your kidneys are functionin g properly Please go to the ED if you start seeing blood in your urine or are haqving severe pain Paresthesia of finger 76 3915876 R20.2 You were seen today for numb [...] numbness and weakness Thank you for using [facility] today, please feel free to contact our [...] [employer]iva Member ID Guarantor Name 10/14/2022 1 [facility] (MEDICAID REPLACEMENT - HMO) EDINSON Colby Guerra [id number] Cotto Leisa Guerra 10/26/2022 1 [facility] (MEDICAID REPLACEMENT - HMO) [place]INSON Colby Guerra [id number] Cotto Leisa Guerra 11/01/2022 1 [facility] (MEDICAID REPLACEMENT - HMO) EDINSON Colby Guerra [id number] Cotto Leisa Guerra 09/28/2023 1 [facility] (MEDICAID REPLACEMENT - HMO) EDINSON Colby Guerra [id number] Cotto Leisa Guerra 02/01/2024 1 [facility] (MEDICAID REPLACEMENT - HMO) EDINSON Colby Guerra [id number] Cotto Leisa Geurra Notes Date Note Type Note Provider Name [...] Mitzy Ellsworth MD [address] [place], [address], [facility] 10/14/2022 12:11:37 10/27/19 23 text/htm [...] Moises Tran MD [address] [place], [address], [facility] 10/26/2022 09:53:06 11/02/19 23 text/htm [...] JUAN A Soria [address] [place], [address], PA - [facility] 11/01/2022 09:04:18 09/28/19 [...] Mitzy Ellsworth MD [address] [place], [address], PA - [facility] 10/05/2023 11:30:52 02/01/20 24 text/htm l 53 y/o female here with about a month of increasing urinary frequency, with bubbles in the toilet. Also with tingling to fingertips on both hands, for the past year, on and off at first, now constant JUAN A Henderson [address] [place], [address], PA - [facility] 02/01/2024 11:10:04 OBGyn Episode No OBEpisode recorded.
--- OUTSIDE RECORDS SUMMARY | 2024-06-16 14:47 | XMS_ITS | Data Portability ---
Author Organization [place] - [facility], Allergy Address [address] [address] [place] [address] Assessment Encounter Date Assessment Date Assessment LastModified by Organization Details LastModified Time 05/12/2024 05/12/2024 Patient presents with non-pulsatile tinnitus. We reviewed that unfortunately there is no known medical nor surgical cure. I have recommended the use of hearing protection as needed. They should also use masking techniques with background noises that modulate to decrease perception of non-pulsatile tinnitus. Other therapies to improve tolerance of tinnitus were reviewed, to include biofeedback, sound retraining, and cognitive behavioral therapy. We discussed that high stress, low sleep and high caffeine intake can also be contributing factors. A brochure was provided to patient to read at home. I have recommended that she strongly consider cognitive behavioral therapy; contact information for [facility] was provided. Follow up in 1-2 years for repeat audiometric testing. [email or web address] Not available 05/12/2024 16:18:34 Plan of Treatment Reminders Order Date Submit Date Provider Last Modified By Organization Details Last Modified Time Details Appointments None record ed. Lab None record ed. Referral None record ed. Procedures None record ed. Surgeries None record ed. Imaging None record ed. Medication Orders None record ed. Patient TargetsNo targets recorded. Patient InstructionsNo instructions recorded. Reason for Referral None Reported. Results Created Date Observation Date Name Description Value Unit Range Abnormal Flag Note LastModifiedBy Organization Detail LastModifiedTime 01/06/20 24 10/21/2022 imagi ng/di agnos tic resul t No observ ation record ed. [email or web address] Not Available 13:13:10 01/06/20 24 10/28/2022 imagi ng/di agnos tic resul t No observ ation record ed. [email or web address] Not Available 13:13:11 01/06/20 24 01/04/2023 imagi ng/di agnos tic resul t No observ ation record ed. [email or web address] Not Available 13:13:17 05/15/20 24 audio gram No observ ation record ed. BARCODE Not Available 2023 10:00:30 Result Notes None recorded. Problems Name Problem SNOMED Code Status Onset Date Resolution Date Notes Provider Name and Address Organization Details Recorded Time Dizziness and giddiness 189986184 Active 2022 Dizziness and giddiness ; Note: Date Diagnosed : 11/03/2022 12:30 PM (R42) Not Available [facility] 4 02:48:18 Bilateral tinnitus 65925334873 02 Active 2022 Tinnitus, bilateral ; Note: Date Diagnosed : 10/21/2022 2:30 PM (H93.13) Not Available [facility] 4 02:48:16 Bilateral temporoma ndibular joint pain 13264675528 509145 Active 2022 Arthralgi a of bilateral temporoma ndibular joint; Note: Date Diagnosed : 10/21/2022 3:02 PM (M26.623) Not Available [facility] 4 02:48:19 Feeling of lump in throat 729472038 Active 2023 CLEVELAND CRUZ PA-C [address] [place] [address], [facility] JONELLE scott, [address] , [place] - [facility] 4 13:39:50 Sensorine ural hearing loss of bilateral ears 735746156 Active 2023 Bibiana vale [place] - [facility] 4 15:14:03 Problem Notes None recorded. Procedures Surgical History Date Name Laterality Status Provider Name and Address Organization Details Recorded Time 05/12/20 24 Air & Speech Audio with Tymps (68596, 45154 & 24050) completed Bibiana Woodson MA - [facility] 05/12/2024 15:13:56 09/29/19 24 Fiberoptic Laryngoscopy (Comprehensive) completed CLEVELAND CRUZ PA-C [address] [place] [address], [phone], [place] - [facility] 09/29/2023 15:03:41 Imaging Results Imaging Date Name Status [facility] Details LastModified Time 10/21/2022 imaging/diagno stic result completed Information not available 01/06/2024 13:13:10 10/28/2022 imaging/diagno stic result completed Information not available 01/06/2024 13:13:11 01/04/2023 imaging/diagno stic result completed Information not available 01/06/2024 13:13:17 05/15/2024 audiogram completed BARCODE Information no t available 05/15/2024 10:00:30 Procedure Notes None recorded. Medical Equipment None Reported. Allergies No known drug allergies Medications Name Sig Start Date Stop Date Status Note LastModified by Organization Details LastModified Time meloxicam 15 mg tablet TAKE 1 TABLET BY MOUTH EVERY DAY AFTER MEALS active Not Available Not Available No t Available prednison e 20 mg tablet TAKE 3 TABS FOR 3 DAYS, TAKE 2 TABS FOR 3 DAYS, TAKE 1 TAB FOR 3 DAYS active Not Available Not Available No t Available meclizine 25 mg tablet TAKE 1 TABLET BY MOUTH 2 TIMES DAILY NEEDED FOR DIZZINES S. active Not Available Not Available No t Available gabapenti n 300 mg capsule TAKE 1 CAPSULE DAILY AT BEDTIME X 1 WEEK THEN 1 CAPSULE TWICE A DAY DIRECTED 30 DAY(S) active Not Available Not Available No t Available omeprazol e 20 mg capsule,d elayed release TAKE 1 CAPSULE BY MOUTH EVERY DAY active Not Available Not Available No t Available hydroxyzi ne HCl 25 mg tablet TAKE 1 TABLET BY MOUTH EVERYDAY AT BEDTIME active Not Available Not Available No t Available gabapenti n 100 mg capsule TAKE 1 CAPSULE BY MOUTH EVERYDAY AT BEDTIME active Not Available Not Available No t Available azithromy leander 500 mg tablet 11/03 completed Medicati on ID: [id number] B rand Name: asher christian Sen d Method: E-Prescr ibed Sub s Allowed: subs OK Medic ationGen ericName : azithrom ycin Not Available Not Available Not Available Restasis 0.05 % eye drops in a dropperet te INSTILL 1 DROP INTO BOTH EYES TWICE A DAY active Not Available Not Available No t Available melatonin 5 mg tablet TAKE 1 TABLET BY MOUTH EVERYDAY AT BEDTIME active Not Available Not Available No t Available Vitals Date Recorded Body height Body mass index (BMI) Body weight Provider Name and Address Organization Details Last Updated DateTime 09/29/2023 165.1 cm 20.8 kg/m2 01082.05 g Skylar Del Rosario MA [facility] 09/29/2023 13:41:09 Date Recorded Body height Body mass index (BMI) Body weight Provider Name and Address Organization Details Last Updated DateTime 05/12/2024 165.1 cm 20.8 kg/m2 57416.05 g Madison Milton MA [facility] 05/12/2024 14:47:44 Social History None recorded. Functional Status None recorded. Mental Status None recorded. Family History Nothing Reported. Medical History No medical history recorded. Gynecological HistoryNo gynecological history recorded. Obstetrics History GPAL:G 0 P 0 0 0 0 Immunizations Vaccine Type Date Status Note Provider Nam e and Address Organization Details Recorded Time influenza, seasonal, intradermal, preservative free 4 completed Skylar vale MA [facility] 09/29/2023 13:41:36 Past Encounters Encounter ID Performer Location Encounter Start Date Encounter Closed Date Diagnosis/Indication Diagnosis SNOMED-CT Code Diagnosis ICD10 Code Diagnosis Note [id number] CLEVELAND CRUZ PA-C [facility] [address] [address] 09/29/2023 13:33:19 09/29/2023 14:01:35 Feeling of lump in throat 504123152 R09.89 Neck radiograph reviewed by Dr. Blackmon. Calcificat ion of the cricoid cartilage without evidence of foreign body or trauma. Reassuranc e provided that the cryptic area in the left palatine tonsil is not a result of trauma and does not require care. Patient to follow up as needed. [id number] DANITA PEÑA MD [facility] [address] [address] 05/12/2024 14:46:12 05/12/2024 15:35:31 Sensorineural hearing loss of bilateral ears 537017989 H90.3 Audiologic al evaluation results: Right ear: {{Normal N ormal through 2 kHz Mild M oderate Mo derately-s evere Jody re Profoun d Normal through 6 kHz#}} {{hearing hearing. s loping to a mild* slop ing to a moderate s loping to moderately severe slo ping to severe slo ping to profound f lat high frequency low frequency mid frequency cookie bite ricardo curve}} {{with sen sorineural hearing loss with* cond uctive hearing loss with mixed hearing loss with}} {{excellen t* good fa ir poor no measurable }} word recognitio n. Left ear: {{Normal N ormal through 2 kHz Mild M oderate Mo derately-s evere Jody re Profoun d Normal through 6 kHz#}} {{hearing hearing. s loping to a mild* slop ing to a moderate s loping to moderately severe slo ping to severe slo ping to profound f lat high frequency low frequency mid frequency cookie bite ricardo curve}} {{with sen sorineural hearing loss with* cond uctive hearing loss with mixed hearing loss with}} {{excellen t* good fa ir poor no measurable }} word recognitio n. Tympanomet ry: Right Ear:{{Type A* Type As Type Ad Type C Type C, shallow & rounded Ty pe B Type B with large volume Cou ld not maintain a hermetic seal}} Left Ear:{{Type A* Type As Type Ad Type C Type C, shallow & rounded Ty pe B Type B with large volume Cou ld not maintain a hermetic seal}} Bilateral tinnitus 14569 74645 102 H93.13 Health Concerns Section Related Observation LastModified by Organization Detai ls LastModified Time None Recorded Concern Status LastModified by Organization Details LastModified Time None Recorded Advance Directives Directive None Recorded Payers Encounter Date Sequence Insurance Name Policy Number Policy Oliva Covered Member ID Oliva Member ID Guarantor Name 09/29/2023 1 [facility] (MEDICAID REPLACEMENT - HMO) EDINSON Guerra [id number] Yadiel Guerra 05/12/2024 1 [facility] (MEDICAID REPLACEMENT - HMO) EDINSON Guerra [id number] Yadiel Guerra Notes Date Note Type Note Provider Name and Address Organization Details Recorded Time 09/29/2023 text/html Evening of 09/26, patient was eating chicken feet when she felt that something became lodged in the throat. She used her fingers to pick at the top of the throat but could not retrieve anything. The next day she reported to urgent Care where a neck radiograph was performed. Apparently there was an anomaly on the imaging that was thought to possibly represent foreign body. Patient was directed to [facility] ED where the image was reviewed and thought to represent a soft tissue density. However, patient was referred here for flexible fiberoptic laryngoscopy. Patient reports she has been eating and drinking well. No dysphagia, odynophagia, dyspnea, hemoptysis, sore throat, voice change, fever. CLEVELAND CRUZ PA-C [address] [facility],[address], [address], [place] - [facility] 09/29/2023 15:10:08 05/12/2024 text/html 51-year-old shabbir mccarthy presents for reevaluation of ears and hearing. She reports continued nonpulsatile tinnitus that is perceived as being in the middle of the head and she finds it very bothersome. It does keep her from sleeping. She denies otalgia, otorrhea, and change in hearing. She drinks 1 small serving of caffeine daily. She does have a lot of emotional stress. DANITA DAY MD [address] [facility],[address], [address], [place] - [facility] 05/12/2024 16:59:53 OBGyn Episode No OBEpisode recorded.
--- OUTSIDE RECORDS SUMMARY | 2024-06-16 14:47 | XMS_ITS | Clinical Summary ---
Author Organization [facility] Address [address] [place] [address] Care Team Providers Care Occupational Therapist Assistants Name Role Phone Unavailable Primary Care Provider Unavailabl e Allergies No known active allergies Medications No known medications Social History Tobacco Use Types Packs/Day Years Used Date Smoking Tobacco: Never Smokeless Tobacco: Never Tobacco Cessation:Counseling Given: Not Answered Alcohol Use Standard Drinks/Week Comments Not Currently 0 (1 standard drink = 0.6 oz pur e alcohol) rare Sex and Gender Information Value Date Recorded Sex Assigned at Not on file Gender Identity Not on file Sexual Orientation Not on file Job Start Date Occupation Industry Not on file Not on file Not on file Last Filed Vital Signs Vital Sign Reading Time Taken Comments Blood Pressure 119/79 09/16/2022 2:24 PM EDT Pulse 81 09/16/2022 2:24 PM EDT Temperature 37 ??C (98.6 ??F) 09/16/2022 2:24 PM EDT Respiratory Rate - - Oxygen Saturation 98% 09/16/2022 2:24 PM EDT Inhaled Oxygen Concentration - - Weight 54.4 kg (120 lb) 09/16/2022 2:24 PM EDT Height 165.1 cm (5' 5 ) 09/16/2022 2:24 PM EDT Body Mass Index 19.97 09/16/2022 2:24 PM EDT Plan of Treatment Health Maintenance Due Date Last Done Comments Hepatitis B Vaccines (1 of 3 - 3-dose series) 1971 Hepatitis C Screening 1971 Depression Screening 1983 Preventative Health Evaluation 07/17/1989 Cervical Cancer Screening (Pap Smear) 07/17/1992 Colon Cancer Screening (Colonoscopy) 07/17/2016 Breast Cancer Screening (Mammogram) 07/17/2021 Shingrix-Zoster Vaccine (1 o f 2) 07/17/2021 COVID-19 Vaccine (2023-2 5 season) 2024 07/06/2020, 06/15/2020 Influenza Vaccine (#1) 2024 5, 03/04/2011 DTap / Tdap / Td (4 - Td or Tdap) 10/07/2032 10/07/2022, 12/07/2018, 11/15/2008 Pneumococcal Vaccine Aged Out No long er eligible based on patient's age to complete this topic RSV Ped < 20 months Aged Out No longe r eligible based on patient's age to complete this topic
--- OUTSIDE RECORDS SUMMARY | 2024-06-16 14:47 | XMS_ITS | Clinical Summary ---
Author Organization [facility] Address [address] [place] [address] Care Team Providers Care Court Manager Name Role Phone Leslie Vera MD Primary Care Provider Allergies No known active allergies Medications Medication Sig Dispensed Refills Start Date End Date Status melatonin 5 mg capsule Take 1 Capsule by mouth at bedtime. 11/25/2023 Active omeprazole (PriLOSEC) [address] capsule Take 1 capsule (20 mg total) by mouth 1 (one) time each day. 11/29/2023 Active hydrOXYzine HCL (ATARAX) 25 mg tablet Take 1 Tablet by mouth at bedtime. 11/25/2023 Active predniSONE (DELTASONE) 20 mg tablet Take 3 tabs for 3 days, take 2 tabs for 3 days, take 1 tab for 3 days Active gabapentin (NEURONTIN) 100 mg capsule Take 1 Capsule by mouth at bedtime Active Active Problems Problem Noted Date Diagnosed Date Chronic midline thoracic back pain 09/28/2022 Overview (02/16/2024): Last Assessment & Plan: Patient describes ongoing central and left-sided midthoracic pain, not with any specific activity, just that it is always present. This is not associated with numbness or tingling from the trunk down. She does not have urinary incontinence. She relates her Vigue unsteady gait is coinciding with the ringing in her ears. Tinnitus, subjective, bilateral 09/28/2022 Overview (02/16/2024): Last Assessment & Plan: Ms. Guerra reports 10 to 20 days of ringing in her ears. There is no inciting event, she can still hear everything else but has this ringing on top of it. Her family says that she often speaks louder than she used to. She is able to hear finger rub and I found nothing on exam to be concerned about an intracranial issue. We will refer her to ENT at her request. Breast mass, right 03/16/2016 Carpal tunnel syndrome, bilateral 11/15/2013 Degenerative arthritis of cervical spine 010 Overview (02/16/2024): Last Assessment & Plan: Ms. Guerra reports persistent primarily left periscapular pain. Some of this may be positional as she has mild reversal of the lordosis however there is nothing specifically left-sided, no radiculopathy and nothing that would benefit from surgery. She has tried a multitude of treatments for her spine and other ailments including PT, yoga, other exercise, Western medicine and [place] medicine when she went back to [place] and nothing has helped. She is now on vitamins. The most I could suggest is good body mechanics. Knee pain 2009 Lumbosacral radiculitis 2009 Overview (02/16/2024): Last Assessment & Plan: She is not currently reporting any lower back pain and does not understand why a lumbar spine MRI was performed instead of the thoracic spine. Generally speaking, she has more trouble with her left leg and occasionally has tingling in some of the left toes. There is mild lateral recess stenosis on the left at L4-5 but, as she has no focal findings on exam and is not currently reporting back pain, we would not address this. Neck pain 2009 Patella, chondromalacia 2009 Herniated intervertebral disc of lumbar spine Overview (02/16/2024): Cervical spine C 5-6 Insomnia, unspecified 01/07/2006 Encounters Date Type Department Care Team Description 06/06/2024 3:30 PM EST Consult Vascular Surgery - [place] [address] [place] [address] Dalia Estrella PA Varicose veins of both lower extremities with pain (Primary Dx) from Last 3 Months Immunizations Name Administration Dates Next Due Hepatitis A Adult (Havrix; V aqta) 19yo and older 10/07/2022 Influenza Quadravalent, MDCK , 0.5ml, preservative free (Flucelvax) 6mo and older 02/07/2022,01/13/2019,02/28/2017 Influenza trivalent, with preservative (Fluzone; Afluria) 6mo and older 02/23/2023,03/19/2020,03/22/2018,2014,03/04/2011 Influenza, Unspecified 03/22/2018 [employer] SARS-CoV-2 COVID-19, mRNA, LNP-S, preservative free 07/06/2020 Td Tetanus diptheria (Tdvax) 7yo and older 12/07/2018 Tdap Tetanus diptheria acell ular pertussis (Boostrix; Adacel) 7yo and older 10/07/2022,12/07/2018,11/15/2008 Typhoid VICPS (Typhim Vi) 2y o and older 11/08/2022 Zoster recombinant (Shingrix ) 19yo and older 04/11/2022,02/07/2022 Surgical History Surgery Date Site/Laterality Comments OTHER SURGICAL HISTORY PROCEDURE: DENIES PREVIOUS SURGERY COLONOSCOPY 2020 PROCEDURE: HISTORICAL COLONOSCOPY Medical History Medical History Date Comments Other abnormal glucose 01/07/2006 DX:Other abnormal glucose Historical Medical DX 01/19/2008 DX:Herniat ed intervertebral disk; COMMENT: Cervical spine Carpal tunnel syndrome, bilateral 11/15/2013 DX:Carpal tunnel syndrome, bilateral; COMMENT: Confirmed with EMG Difficulty balancing DX:Difficul ty balancing Arthritis DX:Arthritis Weakness of both legs DX:Weaknes s of both legs Family History Medical History Relation Name Comments Hypertension Father Breast cancer Mother Colon cancer Neg Hx Ovarian cancer Neg Hx Relation Name Status Comments Brother 1 Alive Brother 2 Alive Brother 3 Alive Brother 4 Alive Father Alive Mother Alive Sister 1 Alive Sister 2 Alive Social History Tobacco Use Types Packs/Day Years Used Date Smoking Tobacco: Never Smokeless Tobacco: Never Alcohol Use Standard Drinks/Week Comments Not Currently 0 (1 standard drink = 0.6 oz pur e alcohol) Sex and Gender Information Value Date Recorded Sex Assigned at Not on file Gender Identity Not on file Sexual Orientation Not on file Job Start Date Occupation Industry Not on file Not on file Not on file Obstetrics History Last Filed Vital Signs Vital Sign Reading Time Taken Comments Blood Pressure 117/70 06/06/2024 3:23 PM EST Pulse 77 06/06/2024 3:23 PM EST Temperature - - Respiratory Rate - - Oxygen Saturation - - Inhaled Oxygen Concentration - - Weight 57.2 kg (126 lb 3.2 oz) 06/06/2024 3:23 P M EST Height 165.1 cm (5' 5 ) 06/06/2024 3:23 PM EST Body Mass Index 21 06/06/2024 3:23 PM EST Plan of Treatment Upcoming Encounters Date Type Department Care Team (Late st Contact Info) Description 06/29/2024 9:00 AM EST Ancillary Procedure [facility] - [facility] [address] [facility] 101 [place] [address] 07/20/2024 11:30 AM EST Office Visit Obstetrics and Gynecology - [address] [phone] Kinsey Cotton, [facility] [address] [place] [address] 08/08/2024 11:00 AM EDT Office Visit Adult Medicine [place] - [address] [phone] Leslie Vera MD [address] [place] [address] 09/05/2024 4:00 PM EDT Office Visit Vascular Surgery - [place] 300 [facility] [address] [place] [address] Lilian Simmons PA [address] [address] 01/31/2025 10:00 AM EDT Appointment Radiology Department - [address] [phone] Health Maintenance Due Date Last Done Comments Hepatitis B Vaccines (1 of 3 - 19+ 3-dose series) 07/17/1990 HIV Screening 03/11/2022 Social Influencers of Health Screening 03/11/2022 COVID-19 Vaccine ( season) 2024 04/20/2021, 07/06/2020, 06/15/2020 Influenza Vaccine (#1) 2024 , 02/07/2022, 03/19/2020, Additional history exists Depression Screening 02/03/2025 02/04/2024 Breast Cancer Screening 01/18/2026 01/19/20, 01/19/2024, 01/07/2023, Additional history exists Cholesterol Screening (Lipid Panel) 10/08/2027 10/07/2022 Cervical Cancer Screening: HPV 10/30/2027 10/29/2022 Colorectal Cancer Screening: Colonoscopy 03/23/2032 03/23/2022 DTaP,Tdap,and Td Vaccines (5 - Td or Tdap) 10/07/2032 10/07/2022, 12/07/2018, 12/07/2018, Additional history exists Zoster Vaccines Completed 04/11/2022, 02/07/2022 Hepatitis A Vaccines Aged Out 10/07/2022 No long er eligible based on patient's age to complete this topic Hepatitis C Screening Completed 10/07/2022 HIB Vaccines Aged Out No longer eligi ble based on patient's age to complete this topic HPV Vaccines Aged Out No longer eligi ble based on patient's age to complete this topic IPV Vaccines Aged Out No longer eligi ble based on patient's age to complete this topic MMR Vaccines Aged Out No longer eligi ble based on patient's age to complete this topic Meningococcal ACWY Vaccine Aged Out N o longer eligible based on patient's age to complete this topic Pneumococcal Vaccine: Pediatrics (0 to 5 Years) and At-Risk Patients (6 to 64 Years) Aged Out No longer eligible based on patient's age to complete this topic RSV Immunization Patients Under 20 months Aged Out No longer eligible based on patient's age to complete this topic Varicella Vaccines Aged Out No longer eligible based on patient's age to complete this topic Procedures Procedure Name Priority Date/Time Associated Diagnosis Comments HM DEPRESSION SCREENING Routine 02/04/2024 SCREENING MAMMOGRAPHY BI 2-VIEW BREAST INC CAD Routine 01/19/2024 10:29 AM EDT Encounter for screening mammogram for malignant neoplasm of breast HPV Routine 10/29/2022 HEPATITIS C SCREENING Routine 10/07/2022 LIPID PANEL Routine 10/07/2022 COLONOSCOPY Routine 03/23/2022 from Last 3 Months or Most Recently Relevant to Health Maintenance Results * Depression Screening (02/04/2024) Depression Screening abstracted Historical Provider MD OKSANA You * SCREENING MAMMOGRAPHY BI 2-VIEW BREAST INC CAD (01/19/2024 10:29 AM EDT) Anatomical Region Laterality Modality Radiographic Mary ging 01/07/2023 10:1 6 AM EDT Narrative 01/19/2024 12:39 PM EDT This is a summary report. The complete report is available in the patient's medical record. If you cannot access the medical record, please contact the sending organization for a detailed fax or copy. Study: SCREENING MAMMOGRAPHY BI 2-VIEW BREAST INC CAD Technique: Bilateral full-field digital screening mammography is obtained and read in conjunction with computer aided detection. ??Tomosynthesis as well as 2D C-View imaging were obtained. Comparison: Comparison made to multiple priors, most recent January 07, 2023, and most remote October 18, 2017. Breast composition: The breast tissue is extremely dense, which lowers the sensitivity of mammography. Bilateral breasts: No significant masses, suspicious calcifications or other abnormalities are seen in either breast. IMPRESSION: Impression: Bilateral breasts: Negative, no specific mammographic evidence of malignancy. ??Normal interval follow-up is recommended in 12 months. BI-RADS: Category 1: Negative [address] [address] [phone] Procedure Note Caitlyn Nunez MD - 03/01/2024 This is a summary report. The complete report is available in thepatient's medical record. If you cannot access the medical record, pleasecontact the sending organization for a detailed fax or copy. Study: SCREENING MAMMOGRAPHY BI 2-VIEW BREAST INC CAD Technique: Bilateral full-field digital screening mammography is obtainedand read in conjunction with computer aided detection. Tomosynthesis aswell as 2D C-View imaging were obtained. Comparison: Comparison made to multiple priors, most recent December, and most remote October 18, 2017. Breast composition: The breast tissue is extremely dense, which lowers thesensitivity of mammography. Bilateral breasts: No significant masses, suspicious calcifications orother abnormalities are seen in either breast. IMPRESSION: Impression: Bilateral breasts: Negative, no specific mammographic evidence ofmalignancy. Normal interval follow-up is recommended in 12 months. BI-RADS: Category 1: Negative [address] [address] [phone] Svitlana Castillo DO IMG XR PROCEDURE S * Cervical Cancer Screening: HPV (10/29/2022) [facility] Cervical Cancer Screening: HPV abstracted ,negative Historical Provider MD OKSANA You * Hepatitis C Screening (10/07/2022) [facility] Hepatitis C Screening abstracted Historical Provider MD OKSANA You * Lipid panel (10/07/2022) [facility] LDL/HDL Ratio 2 0 - 4 Triglycerides 59 0 - 150 mg/dL Cholesterol 178 0 - 200 mg/dL HDL 84 40 mg/dL LDL Cholesterol 83 0 - 100 mg/dL Blood Venous blood specimen / Unknown Historical Provider LAB BLOOD ORDERAB LES * Colonoscopy (03/23/2022) Colonoscopy abstracted,no interpretation Anatomical Region Laterality Modality Other Historical Provider MD OKSANA You from Last 3 Months or Most Recently Relevant to Health Maintenance Care Teams Court Manager Relationship Specialty Start Date End Date Leslie Vera MD [address] [place] [id number] PCP - General 08/10/22
--- OUTSIDE RECORDS SUMMARY | 2024-06-16 14:47 | XMS_ITS | Encounter Summary ---
Author Organization [facility] Address [address] [place] [address] Care Team Providers Care Lead Bi Developer Name Role Phone Leslie Vera MD Primary Care Provider [phone] Reason for Referral * Imaging (Routine) - Authorized Specialty Diagnoses / Procedures Referred By Contac t Referred To Contact Diagnoses Varicose veins of both lower extremities with pain Procedures Vascular US duplex lower extremity venous insufficiency bilateral Dalia Estrella PA [address] [place] [address] [facility] Referral ID Status Reason Start Date Expiration Date V isits Requested Visits Authorized [id number] Authorized 06/06/2024 06/06/2025 1 1 Reason for Visit * Reason Comments Consult Varicose Veins Encounter Details Date Type Department Care Team (Late st Contact Info) Description 06/06/2024 3:30 PM EST Consult Vascular Surgery - [place] [address] [place] [address] Dalia Estrella PA [address] [place] [address] Varicose veins of both lower extremities with pain (Primary Dx) Social History Tobacco Use Types Packs/Day Years [...] file Not on file Not on file documented as of this encounter Last Filed Vital Signs Vital Sign Reading [...] 06/06/2024 3:23 PM EST Body Mass Index 06/06/2024 3:23 PM EST documented in this encounter Progress Notes * JUAN A Taylor - 06/06/2024 3:30 PM EST PATIENT: Yadiel Guerra ENCOUNTER: 06/06/2024 EMRN: [id number] : 1970 PCP: Leslie Vera MD CHIEF COMPLAINT: Consult and Varicose Veins HPI: This 53 y.o. female presents for evaluation of venous disease. She is accompanied by her . Patient claims to have varicose veins on bilateral calves and thighs that result in daily pain which she describes as heaviness and cramping. The left leg is worse. She reports associated swelling in the morning and afternoon which extends up to the knee. She has previously tried compression stockings without any improvement in symptoms. She denies history of venous ulcer. No history of DVT. No prior venous procedures. She has had 2 full-term pregnancies. She is a non-smoker. She denies claudication, rest pain in toes, ulcers or gangrene. PAST MEDICAL HISTORY: Patient Active Problem List Diagnosis Breast mass, right Carpal tunnel syndrome, bilateral Chronic midline thoracic back pain Degenerative arthritis of cervical spine Herniated intervertebral disc of lumbar spine Insomnia, unspecified Knee pain Lumbosacral radiculitis Neck pain Patella, chondromalacia Tinnitus, subjective, bilateral PAST SURGICAL HISTORY: Past Surgical History: Procedure Laterality Date COLONOSCOPY 2020 PROCEDURE: HISTORICAL COLONOSCOPY OTHER SURGICAL HISTORY PROCEDURE: DENIES PREVIOUS SURGERY MEDICATIONS: Outpatient Medications Marked as Taking for the 06/06/24 encounter (Consult) with JUAN A Taylor Medication Sig Dispense Refill gabapentin (NEURONTIN) 100 mg capsule Take 1 Capsule by mouth at bedtime hydrOXYzine HCL (ATARAX) 25 mg tablet Take 1 Tablet by mouth at bedtime. melatonin 5 mg capsule Take 1 Capsule by mouth at bedtime. omeprazole (PriLOSEC) [address] capsule Take 1 capsule (20 mg total) by mouth 1 (one) time each day. predniSONE (DELTASONE) 20 mg tablet Take 3 tabs for 3 days, take 2 tabs for 3 days, take 1 tab for 3 days ALLERGIES: No Known Allergies SOCIAL HISTORY: Social History Tobacco Use Smoking status: Never Smokeless tobacco: Never Substance Use Topics Alcohol use: Not Currently Drug use: No FAMILY HISTORY: Family History Problem Relation Name Age of Onset Breast cancer Mother Hypertension Father Colon cancer Neg Hx Ovarian cancer Neg Hx ROS: GENERAL: No malaise, significant weight loss or fever NECK: No lumps, goiter, pain or significant neck swelling RESPIRATORY: No cough, wheezing or shortness of breath CARDIAC: No chest pain or palpitations GI: No abdominal discomfort MUSCULOSKELETAL: SEE HPI SKIN: No lesions, rash or itching NEURO: No persistent headache, syncope, seizures, weakness or numbness VASCULAR: SEE HPI PHYSICAL EXAM: Vitals: 06/06/24 1523 BP: 117/70 BP Location: Right arm Patient Position: Sitting Pulse: 77 Weight: 57.2 kg (126 lb 3.2 oz) Height: 1.651 m (65 ) General: Alert and oriented x 3, no acute distress, well-nourished HEENT: Normocephalic atraumatic Neck: No JVD Chest: Respiratory effort normal Cardiac: Regular rate rhythm Abdomen: Soft, nontender, nondistended, no widened aortic pulse Extremity: -Right upper extremity: 2+ radial artery pulse palpable. -Left upper extremity: 2+ radial artery pulse palpable. -Right lower extremity: 2+ femoral artery pulse palpable. No palpable popliteal artery pulse. 2+ DPand PT pulses palpable. No ulcers or gangrene. Reticular and spider veins noted to popliteal fossa.No hyperpigmentation. No induration or inflammation. No edema. -Left lower extremity: 2+ femoral artery pulse palpable. No palpable popliteal artery pulse. 2+ DP and PT pulses palpable. No ulcers or gangrene. Reticular and spider veins noted to popliteal fossa. No hyperpigmentation. No induration or inflammation. No edema. Integumentary: No wounds Neuro: Grossly intact IMAGING STUDIES: There was not imaging studies completed for review. ASSESSMENT: 1. Varicose veins of both lower extremities with pain PLAN: 53 y.o. female with bilateral lower extremity heaviness and cramping. Patient does have reticular and spider veins present on bilateral popliteal fossa. We will obtain bilateral lower extremity venous reflux studies and we will have the patient follow up once imaging has been completed. Recommend daily use of compression stockings, leg elevation, exercise. We discussed the natural pathophysiology of venous disease. I spent 30 minutes in an encounter withthis patient, including time spent with patient, chart review, ordering diagnostic studies, and documentation. documented in this encounter Plan of Treatment Upcoming Encounters Date Type Department Care Team (Late st Contact Info) Description 06/29/2024 9:00 AM EST Ancillary Procedure [facility] - [facility] [address] [facility] 101 [place] [address] 07/20/2024 11:30 AM EST Office Visit Obstetrics and Gynecology - [address] [phone] Kinsey Cotton, [address] [address] 08/08/2024 11:00 AM EDT Office Visit Adult Medicine [address] [phone] Leslie Vera MD [address] [place] [address] 09/05/2024 4:00 PM EDT Office Visit Vascular Surgery - [place] [address] [phone] Lilian Simmons PA [address] [address] 01/31/2025 10:00 AM EDT Appointment Radiology Department - [address] [address] Scheduled Orders Name Type Priority Associated Diagnoses Order Schedule Vascular US duplex lower extremity venous insufficiency bilateral Vascular Ultrasound Routine Varicose veins of both lower extremities with pain Expected: 07/09/2024, Expires: 06/06/2025 documented as of this encounter Visit Diagnoses Diagnosis Varicose veins of both lower extremities with pain- Primary Encounter for screening mammogram for breast cancer documented in this encounter Care Teams Lead Bi Developer Relationship Specialty Start Date End Date Leslie Vera MD [address] [place] [address] PCP - General 08/10/22 documented as of this encounter
== END 2024-06-16 14:43 | disposition home or self-care (01) ==
LOC: HO.NEURO 14:42
PROVIDERS: Visit Provider Physician Assistant
DX: Z13.89 Encounter for screening for other disorder (principal)

== ENCOUNTER 2024-07-17 13:50 | Outpatient (AMB) | payer OTHER, SELFPAY ==
--- NOTE | 2024-07-17 13:56 | MHC.OFFVIS ---
Vital Signs 07/17/24 13:59 Height 5 ft 5 in Weight 122 lb BMI 20.3 Intake Visit Reasons: BELT CHANGER-bilateral hand pain EMG done Intake Note: right hand dominant female who presents today for bilateral hand numbness, right worse than left. 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 Denies finger locking. Has tried bracing at night gabapentin, and acupuncture without reief. Denies any prior injuries or surgeries to the hands. Allergies No Known Allergies Allergy (Verified 07/17/24 14:03) HPI HPI BELT CHANGER-bilateral hand pain EMG done: Details: Patient was a right hand dominant female who presents today for bilateral hand numbness, right worse than left. 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 Denies finger locking. Has tried bracing at night gabapentin, and acupuncture without reief. Denies any prior injuries or surgeries to the hands. Patient states she did have EMG and nerve conduction study performed ?a few months ago?. No other acute complaints or concerns at this time. Review of Systems Const All systems reviewed & are unremarkable except as noted in HPI and below Physical Exam Vital Signs: BMI result Body Mass Index 20.3 Extrem Other: Neuro: Decreased sensation in the median nerve distribution of bilateral hands in the office today. Normal sensation to all other digits of bilateral hands in the office today No thenar or intrinsic wasting. Good APB muscle firing and good finger cross. Vascular: Capillary refill brisk. ROM: Patient can make a fist and extend all their digits. Skin: No lacerations or abrasions noted. General: No ecchymosis. No erythema or evidence of infection. Results Reviewed Results Reviewed: EMG and nerve conduction study revealed moderate to severe carpal tunnel on the left and moderate carpal tunnel on the right Assessment & Plan Assessment & Plan (1) Bilateral carpal tunnel syndrome: Code(s): G56.03 - Carpal tunnel syndrome, bilateral upper limbs Category: Medical Plan 1. Carpal tunnel syndrome, right Symptoms constant, daily, worse at night I educated the patient about the condition. I discussed both operative and nonoperative treatment options. The patient would like to proceed with surgery. The risks and benefits of operative treatment were discussed with the patient and the patient wishes to proceed with surgery. These risks include, but are not limited to, risk of damage to blood vessels, nerves, tendons, infection, recurrence, incomplete relief of preoperative symptoms, persistent pain, possible need for further surgery, and the risks associated with regional blocks and/or anesthesia. Plan is to take the patient to the operating room at some point in the next few weeks for the following procedures: 1. Right carpal tunnel release under local All of the preoperative paperwork including the consent was discussed today. All of the patient's questions were answered in the clinic today. The patient understands that they will be in contact with our surgical instrument mechanic to discuss scheduling their procedure. Patient denies diabetes, blood thinners, asthma, heart issues, lung issues, kidney issues, or current smoking. 2. Carpal tunnel syndrome, left Symptoms constant, daily, worse at night Patient would like to proceed with operative intervention on the right prior to any intervention of the left Patient is educated that if she is recovering well from right-sided surgery at her 1st postop, she can get signed up for left-sided surgery at that time Patient was amenable to this plan Coding Level of Care Code New Pt Level 4 (31802) Diagnoses Bilateral carpal tunnel syndrome G56.03
[2024-07-17 13:59] VITALS: BMI 20.3
--- OUTSIDE RECORDS SUMMARY | 2024-07-17 16:20 | XMS_ITS | Clinical Summary ---
Author Organization [facility] Address [address] [place] [address] Care Team Providers Care Workforce Development Vice President Name Role Phone Unavailable Primary Care Provider [...]
--- OUTSIDE RECORDS SUMMARY | 2024-07-17 16:20 | XMS_ITS | Clinical Summary ---
Author Organization [facility] [place] Address [address] [place] [address] Care Team Providers Care Marine Plumber Name Role Phone Leslie Vera MD Primary Care Provider [phone] Allergies No known active allergies Medications melatonin 5 mg capsule Take 1 Capsule [...] PT, yoga, other exercise, Western medicine and Ukrainian medicine when she went back to [place] [...] Encounters Date Type Department Care Team Description 07/06/2024 2:45 PM EST Ancillary Procedure [facility] - [facility] [address] [facility] [address] [place] [address] Varicose veins of both lower extremities with pain 06/06/2024 3:30 PM EST Consult Vascular Surgery - [place] [address] [place] [address] Dalia Estrella PA Varicose veins of both lower extremities with pain (Primary Dx) from Last 3 Months Immunizations Name Administration Dates Next Due Hepatitis A Adult (Havrix; V aqta) 19yo and older 10/07/2022 Influenza Quadravalent, MDCK , 0.5ml, preservative free (Flucelvax) 6mo and older 02/07/2022,01/13/2019,02/28/2017 Influenza trivalent, with preservative (Fluzone; Afluria) 6mo and older 02/23/2023,03/19/2020,03/22/2018,2014,03/04/2011 Influenza, Unspecified 03/22/2018 [place] SARS-CoV-2 COVID-19, mRNA, LNP-S, preservative free 07/06/2020 [...] drink = 0.6 oz pur e alcohol) Comments Unknown Sex and Gender Information Value Date Recorded Sex Assigned at Not on file Legal Sex Female 10:27 PM EDT Gender Identity Not on file Sexual Orientation Not on file Obstetrics History Last Filed [...] Care Team (Late st Contact Info) Description 07/20/2024 11:30 AM EST Office Visit Obstetrics and Gynecology [address] [address] Kinsey Cotton, [address] [address] 08/08/2024 11:00 AM EDT Office Visit Adult Medicine [address] [address] Leslie Vera MD [address] [place] [address] 09/05/2024 4:00 PM EDT Office Visit Vascular Surgery - [place] [address] [address] Lilian Simmons PA [address] [address] 01/31/2025 10:00 AM EDT Appointment Radiology Department - [address] [place] [address] Health Maintenance Due Date Last Done Comments Hepatitis B Vaccines (1 of 3 - 19+ 3-dose series) 07/17/1990 Pneumococcal Vaccine: 50+ Years (1 of 1 - PCV) 07/17/2021 HIV Screening 03/11/2022 Social Influencers of Health [...] patient's age to complete this topic Meningococcal B Vacine Aged Out No lo nger eligible based on patient's age to complete [...] Procedure Name Priority Date/Time Associated Diagnosis Comments VAS US DUPLEX LOWER EXT VENOUS INSUFFICIENCY BILATERAL Routine 07/06/2024 3:18 PM EST Varicose veins of both lower extremities with pain DEPRESSION SCREENING Routine 02/04/2024 SCREENING MAMMOGRAPHY BI 2-VIEW BREAST INC CAD Routine 01/19/2024 10:29 AM EDT Encounter for screening mammogram for malignant neoplasm of breast HPV Routine 10/29/2022 HEPATITIS C SCREENING Routine 10/07/2022 LIPID PANEL Routine 10/07/2022 COLONOSCOPY Routine 03/23/2022 from Last 3 Months or Most Recently Relevant to Health Maintenance Results * Vascular US duplex lower extremity venous insufficiency bilateral (07/06/2024 3:18 PM EST) Left GSK dennys 0.18 cm CV VAS LAB Left GSDC dennys 0.27 cm CV VAS LAB Left GSMT dennys 0.33 cm CV VAS LAB Left GSPC dennys 0.21 cm CV VAS LAB Left GSPT dennys 0.35 cm CV VAS LAB Left SFJ Diameter 0.50 cm CV VAS LAB Left SSMC dennys 0.18 cm CV VAS LAB Left SSPC dennys 0.40 cm CV VAS LAB Right GSK dennys 0.41 cm CV VAS LAB Right GSDC dennys 0.25 cm CV VAS LAB Right GSMT dennys 0.36 cm CV VAS LAB Right GSPC dennys 0.32 cm CV VAS LAB Right GSPT dennys 0.36 cm CV VAS LAB Right SFJ Diameter 0.58 cm CV VAS LAB Right SSMC dennys 0.24 cm CV VAS LAB Right SSPC dennys 0.36 cm CV VAS LAB Right SPJ Diameter 0.27 cm CV VAS LAB Right SSMC reflux 1,106 ms CV VAS LAB Left GSPC reflux 3,083 ms CV VAS LAB Left SPJ Diameter 0.30 cm CV VAS LAB Anatomical Region Laterality Modality Vascular, Abdomen Ultrasound Narrative 07/08/2024 8:52 AM EST Right: 1. ??The right lower extremity veins are compressible and there is no evidence of DVT in the right lower extremity venous system. 2. The GSV has no clinically significant reflux 3. The SSV has clinically significant reflux of 1.1 seconds in the mid segment. Left: 1. ??The left lower extremity veins are compressible and there is no evidence of DVT in the left lower extremity venous system. 2. The GSV has clinically significant reflux of 3.0 seconds in the upper calf. 3. The SSV has no clinically significant reflux. Right Lower Venous The common femoral, femoral, popliteal, greater and lesser saphenous veins were interrogated, demonstrating normal compressibility. Doppler signals were phasic and spontaneous. Right Venous Insufficiency Duplex The exam was performed with the patient in reverse Trendelenburg. Left Lower Venous The common femoral, femoral, popliteal, greater and lesser saphenous veins were interrogated, demonstrating normal compressibility. Doppler signals were phasic and spontaneous. Left Venous Insufficiency Duplex The exam was performed with the patient in reverse trendelenburg. Hotel Operation Manager Details A fry scale, color and doppler analysis ultrasound was performed. During the study longitudinal and transverse views were obtained. Pulsed wave doppler was performed. Dalia VELAZCO CV VASCULAR PROCEDURES Final R esult * Depression Screening (02/04/2024) Pathologist Counts include 234 beds at the [facility] Depression Screening abstracted Historical Provider HEALTH MAINTENANCE Final Result * SCREENING MAMMOGRAPHY BI 2-VIEW BREAST INC [...] in 12 months. BI-RADS: Category 1: Negative [address] [address] [phone] Procedure Note Caitlyn Nunez MD - 03/01/2024 [...] in 12 months. BI-RADS: Category 1: Negative [address] [address] [phone] us Svitlana Castillo DO IMG XR PROCEDURES Final Result * Cervical Cancer Screening: HPV (10/29/2022) Pathologist Counts include 234 beds at the [facility] Cervical Cancer Screening: HPV abstracted ,negative Historical Provider HEALTH MAINTENANCE Final Result * Hepatitis C Screening (10/07/2022) Pathologist Counts include 234 beds at the [facility] Hepatitis C Screening abstracted [facility] Provider HEALTH MAINTENANCE Final Result * Lipid panel (10/07/2022) [facility] LDL/HDL Ratio 2 0 - 4 Triglycerides 59 0 - 150 mg/dL Cholesterol 178 0 - 200 mg/dL HDL 84 >=40 mg/dL LDL Cholesterol 83 0 - 100 mg/dL Blood Venous blood specimen / Unknown [facility] Provider LAB BLOOD ORDERABLES Sherrie l Result * Colonoscopy (03/23/2022) Pathologist Counts include 234 beds at the [facility] Colonoscopy abstracted,no interpretation Anatomical Region Laterality Modality Other [facility] Provider HEALTH MAINTENANCE Final Result from Last 3 Months or Most Recently Relevant to Health Maintenance Insurance [facility] Care Teams Marine Plumber Relationship Specialty Start Date End Date Leslie Vera MD [address] [place] [address] PCP - General 08/10/22
--- OUTSIDE RECORDS SUMMARY | 2024-07-17 16:20 | XMS_ITS | Data Portability ---
Author Organization JUAN A Dowell s, [address] Address [address] [place] [address] Care Team Providers Care Bulldozer Engineer Name Role Phone [facility] Care Provider Assessment No assessment recorded. Plan of Treatment Reminders Order Date Submit Date Provider Last Modified By Organization Details Last Modified Time Details Appointments None recorded. Lab urinalysis, dipstick 2023 024 [email or web address] [facility] [address], [address] [place], [address], 4 10:58:11 CMP, serum or plasma 2023 024 [facility], [address] [place] [address], [place], [address], 4 06:07:45 Referral emergency medicine referral 2023 024 [email or web address] 3 [facility] Emergency Department, [address] [place], [address], 4 15:00:03 Procedures cerumen removal (PROC) 2022 023 [email or web address] Not available 3 07:53:33 Surgeries None recorded. Imaging XR, neck, soft tissue - r/o foreign body (chicken bone), air in soft tissue 2023 024 [email or web address] 3 [facility], [address] [place] [address]., [place], [address], 4 15:00:03 Medication Orders meclizine 25 mg tablet 2022 023 [facility][id number], [address] [place] [address], [address], 3 09:04:06 prednisone 20 mg tablet 2022 023 [email or web address] 31 [facility] #[id number], [address] [place] [address], [address], 4 10:40:52 fexofenadin e-pseudoeph edrine ER 180 mg-240 mg tablet,ext. release 24 hr 2022 023 BALJIT [facility] #[id number], [address] [place] [address], [address], 3 09:41:03 Patient TargetsNo targets recorded. Patient Instructions Encounter Date Encounter Id Patient Instructions Last Modified By Organization Details Last Modified Time 10/14/2022 [id number] earwax blockage: care instructions [email or web address] Not available 10/14/2022 11:30:52 tinnitus: care instructions [email or web address] Not available 10/14/2022 11:37:19 tinnitus information [email or web address] Not available 10/14/2022 11:37:19 Your earwax was completely removed and does not appear to be the cause of your tinnitus. Keep the appointment that you have scheduled for 10/29/22 with your ENT doctor. See printed instructions. Seek Emergency Medical evaluation for any worsening symptoms. [email or web address] Not available 10/14/2022 11:58:14 10/26/2022 [id number] dizziness: care instructions Not available 10/26/2022 09:41:00 tinnitus: care instructions Not available 10/26/2022 09:41:00 11/01/2022 [id number] benign paroxysma l positional vertigo (bppv): care [...] ENT providers Not available 11/01/2022 08:55:56 09/28/2023 [id number] You have been advised to go now to the Emergency Department for further evaluation of a foreign body (?chicken bone) in your throat. [facility] ER has been advised of your impending arrival. Do not eat or drink anything until cleared by ER staff. You evaluation, treatment and final disposition will be determined by ER staff. [email or web address] Not available 09/28/2023 14:53:52 02/01/2024 [id number] frequent urination: care instructions [email or web address] Not available [...] 70-99 above high normal Not Available [facility] ([facility]) [address] [place], [address], 02/02/2024 06:07:45 02/01/20 24 02/02/2024 COMP. METAB OLIC PANEL (14) BUN 11 mg/dL 6-24 normal Not Available [facility] ([facility]) [address] [place], [address], 02/02/2024 06:07:45 02/01/20 24 02/02/2024 COMP. METAB OLIC PANEL (14) creatinine 0.58 mg/dL 0.57-1 .00 normal Not Available [facility] ([facility]) [address] [place], [address], 02/02/2024 06:07:45 02/01/20 24 02/02/2024 COMP. METAB OLIC PANEL (14) eGFR 109 mL/mi n/1.7 3 >59 normal Not Available [facility] ([facility]) [address] [facility], [place], [address], 02/02/2024 06:07:45 02/01/20 24 02/02/2024 COMP. METAB OLIC PANEL (14) BUN/creatini ne ratio 19 9-23 normal Not Available [facility] ([facility]) [address] [facility], [place], [address], 02/02/2024 06:07:45 02/01/20 24 02/02/2024 COMP. METAB OLIC PANEL (14) sodium 142 mmol/ L 134-14 4 normal Not Available [facility] ([facility]) [address] [facility], [place], [address], 02/02/2024 06:07:45 02/01/20 24 02/02/2024 COMP. METAB OLIC PANEL (14) potassium 4.2 mmol/ L 3.5-5. 2 normal Not Available [facility] ([facility]) [address] [facility], [place], [address], 02/02/2024 06:07:45 02/01/20 24 02/02/2024 COMP. METAB OLIC PANEL (14) chloride 102 mmol/ L 96-106 normal Not Available [facility] ([facility]) [address] [facility], [place], [address], 02/02/2024 06:07:45 02/01/20 24 02/02/2024 COMP. METAB OLIC PANEL (14) carbon dioxide, total 26 mmol/ L 20-29 normal Not Available [facility] ([facility]) [address] [facility], [place], [address], 02/02/2024 06:07:45 02/01/20 24 02/02/2024 COMP. METAB OLIC PANEL (14) calcium 9.9 mg/dL 8.7-10 .2 normal Not Available [facility] ([facility]) [address] [facility] [place], [address], 02/02/2024 06:07:45 02/01/20 24 02/02/2024 COMP. METAB OLIC PANEL (14) protein, total 7.2 g/dL 6.0-8. 5 normal Not Available [facility] ([facility]) [address] [facility] [place], [address], 02/02/2024 06:07:45 02/01/20 24 02/02/2024 COMP. METAB OLIC PANEL (14) albumin 4.8 g/dL 3.8-4. 9 normal Not Available [facility] ([facility]) [address] [facility] [place], [address], 02/02/2024 06:07:45 02/01/20 24 02/02/2024 COMP. METAB OLIC PANEL (14) globulin, total 2.4 g/dL 1.5-4. 5 Not Available [facility] ([facility]) [address] [place], [address], 02/02/2024 06:07:45 02/01/20 24 02/02/2024 COMP. METAB OLIC PANEL (14) bilirubin, total 0.8 mg/dL 0.0-1. 2 normal Not Available [facility] ([facility]) [address] [place], [address], 02/02/2024 06:07:45 02/01/20 24 02/02/2024 COMP. METAB OLIC PANEL (14) alkaline phosphatase 98 IU/L 44-121 normal Not Available [facility] ([facility]) [address] [facility] [place], [address], 02/02/2024 06:07:45 02/01/20 24 02/02/2024 COMP. METAB OLIC PANEL (14) AST (SGOT) 20 IU/L 0-40 normal Not Available [facility] ([facility]) [address] [facility], [place], [address], 02/02/2024 06:07:45 02/01/20 24 02/02/2024 COMP. METAB OLIC PANEL (14) ALT (SGPT) 16 IU/L 0-32 normal Not Available [facility] ([facility]) [address] [facility], [place], [address], 02/02/2024 06:07:45 02/01/20 24 02/01/2024 urina lysis , dipst ick Unknown Analyte Normal = light yellow Not Available [address] [place], [address], 02/01/2024 10:41:35 02/01/20 24 02/01/2024 urina lysis , dipst ick Unknown Analyte Normal = clear Not Available [address] [place], [address], 02/01/2024 10:41:35 02/01/20 24 02/01/2024 urina lysis , dipst ick Unknown Analyte Normal = negati ve Not Available [address] [place], [address], 02/01/2024 10:41:35 02/01/20 24 02/01/2024 urina lysis , dipst ick Unknown Analyte Negati ve Not Available [address] [place], [address], 02/01/2024 10:41:35 02/01/20 24 02/01/2024 urina lysis , dipst ick Unknown Analyte Normal = Negati ve Not Available [address] [place], [address], 02/01/2024 10:41:35 02/01/20 24 02/01/2024 urina lysis , dipst ick Unknown Analyte Negati ve Not Available [address] [place], [address], 02/01/2024 10:41:35 02/01/20 24 02/01/2024 urina lysis , dipst ick Unknown Analyte Normal = Negati ve Not Available [address] [place], [address], 02/01/2024 10:41:35 02/01/20 24 02/01/2024 urina lysis , dipst ick Unknown Analyte Negati ve Not Available [address] [place], [address], 02/01/2024 10:41:35 02/01/20 24 02/01/2024 urina lysis , dipst ick Unknown Analyte Normal = 1.010, 1.015, 1.020 Not Available [address] [place], [address], 02/01/2024 10:41:35 02/01/20 24 02/01/2024 urina lysis , dipst ick Unknown Analyte Normal = Negati ve Not Available [address] [place], [address], 02/01/2024 10:41:35 02/01/20 24 02/01/2024 urina lysis , dipst ick Unknown Analyte Trace- lysed Not Available [address] [place], [address], 02/01/2024 10:41:35 02/01/20 24 02/01/2024 urina lysis , dipst ick Unknown Analyte Normal = 6.5, 7.0, 7.5, 8.0 Not Available [address] [place], [address], 02/01/2024 10:41:35 02/01/2002/01/2024 urina lysis , dipst ick Unknown Analyte Normal = Negati ve Not Available [address] [place], [address], 02/01/2024 10:41:35 02/01/20 24 02/01/2024 urina lysis , dipst ick Unknown Analyte Negati ve Not Available [address] [place], [address], 02/01/2024 10:41:35 02/01/20 24 02/01/2024 urina lysis , dipst ick Unknown Analyte Normal = 0.2, 1.0 Not Available [address] [place], [address], 02/01/2024 10:41:35 02/01/20 24 02/01/2024 urina lysis , dipst ick Unknown Analyte Normal = Negati ve Not Available [address] [place], [address], 02/01/2024 10:41:35 02/01/2002/01/2024 urina lysis , dipst ick Unknown Analyte Negati ve Not Available [address] [place], [address], 02/01/2024 10:41:35 02/01/2002/01/2024 urina lysis , dipst ick Unknown Analyte Normal = Negati ve Not Available [address] [place], [address], 02/01/2024 10:41:35 02/01/20 24 02/01/2024 urina lysis , dipst ick Unknown Analyte Negati ve Not Available [address] [place], [address], 02/01/2024 10:41:35 02/01/20 24 02/01/2024 urina lysis , dipst ick Unknown Analyte Yellow Not Available [address] [place] [address] [address] [place], [address], 02/01/2024 10:41:35 02/01/20 24 02/01/2024 urina lysis , dipst ick Unknown Analyte Clear Not Available [address] [place] [address] [address] [place], [address], 02/01/2024 10:41:35 02/01/20 24 02/01/2024 urina lysis , dipst ick Unknown Analyte 1.015 Not Available [address] [place] [address] [address] [place], [address], 02/01/2024 10:41:35 02/01/20 24 02/01/2024 urina lysis , dipst ick Unknown Analyte 7.0 Not Available [address] [place] [address] [address] [place], [address], 02/01/2024 10:41:35 02/01/20 24 02/01/2024 urina lysis , dipst ick Unknown Analyte 0.2 E.U./d L Not Available [address] [place], [address], 02/01/2024 10:41:35 09/28/19 24 09/28/2023 XR, neck, soft tissu e No observ ation record ed. [email or web address] [facility] [address] [facility] [place], [address], 09/28/2023 15:11:14 Result Notes None recorded. Problems Name Problem SNOMED Code Status Onset Date Resolution Date Notes Provider Name and Address Organization Details Recorded Time Chronic back pain 746571094 Active 2016 JUAN A Adams [facility] 3 10:50:30 Chronic neck pain 9752541574617 Active 1982 40x years JUAN A Adams [facility] 3 10:50:51 Problem Notes None recorded. Procedures Surgical History Date Name Laterality Status Provider Name and Address Organization Details Recorded Time Cerumen Removal by Irrigation completed ALANIS Hsieh [facility] 10/14/2022 11:48:01 Imaging Results Imaging Date Name Status LastModified by Organ ation Details LastModified Time 09/28/2023 XR, neck, soft tissue completed [email or web address] [employer] [facility] [address] [facility] [place], [address], 09/28/2023 15:11:14 Procedure Notes None recorded. Medical [...] Arterial blood by Pulse oximetry Heart rate Pain severity - 0-10 verbal numeric rating [Score] - Reported Respiratory rate Body temperature Body height Body mass index (BMI) Body weight Systolic blood pressure Diastolic blood pressure Provider Name and Address Organization Details Last Updated DateTime 3 99 % 99 % 68 /min 0 16 /min 98 [degF] 165.1 cm 20.3 kg/m2 73054.2 7 g 114 mm[Hg] 73 mm[Hg] LIYA FREITAS DC - [facility] 3 10:52:21 Date Recorded Body height Body mass index (BMI) Body weight Pain severity - 0-10 verbal numeric rating [Score] - Reported Oxygen saturation Oxygen saturation in Arterial blood by Pulse oximetry Heart rate Respiratory rate Body temperature Systolic blood pressure Diastolic blood pressure Provider Name and Address Organization Details Last Updated DateTime 3 165.1 cm 20 kg/m2 31555.0 8 g 0 100 % 100 % 77 /min 18 /min 97.9 [degF] 120 mm[Hg] 81 mm[Hg] JEREMI ALDANA PA - [facility] 3 09:10:28 Date Recorded Body height Body mass index (BMI) Body weight Pain severity - 0-10 verbal numeric rating [Score] - Reported Oxygen saturation Oxygen saturation in Arterial blood by Pulse oximetry Heart rate Respiratory rate Body temperature Systolic blood pressure Diastolic blood pressure Provider Name and Address Organization Details Last Updated DateTime 3 165.1 cm 20 kg/m2 78045.0 8 g 0 100 % 100 % 71 /min 18 /min 97.7 [degF] 128 mm[Hg] 87 mm[Hg] JEREMI ALDANA [facility] 3 08:26:38 Date Recorded Body height Body mass index (BMI) Body weight Pain severity - 0-10 verbal numeric rating [Score] - Reported Oxygen saturation Oxygen saturation in Arterial blood by Pulse oximetry Heart rate Respiratory rate Body temperature Systolic blood pressure Diastolic blood pressure Provider Name and Address Organization Details Last Updated DateTime 4 165.1 cm 20.5 kg/m2 68988.8 6 g 5 97 % 97 % 76 /min 18 /min 97.9 [degF] 132 mm[Hg] 84 mm[Hg] Lyn Noel [facility] 4 13:55:17 Date Recorded Body height Body mass index (BMI) Body weight Oxygen saturation Oxygen saturation in Arterial blood by Pulse oximetry Heart rate Respiratory rate Body temperature Systolic blood pressure Diastolic blood pressure Provider Name and Address Organization Details Last Updated DateTime 4 165.1 cm 20.5 kg/m2 42760.8 6 g 100 % 100 % 69 /min 18 /min 98.7 [degF] 134 mm[Hg] 88 mm[Hg] Lyn Noel [facility] 4 10:41:17 Social History Question Answer Notes LastModified by Organizat ion Details LastModified Time Tobacco Smoking Status Never Smoker JUAN A Adams - [facility] 10/14/2022 10:51:04 What Is Your Level Of Alcohol Consumption? None Information not available 10/14/2022 Have You Had A Flu Shot This Season? Yes [email or web address] Information not available 09/28/2023 What Was The Date Of Your Most Recent Tobacco Screening? 02/01/2024 Information not available 02/01/2024 Do You Use Any Illicit Or Recreational Drugs? No Information not available 10/14/2022 Have You Recently Traveled Abroad? No [email or web address] Information not available 09/28/2023 Do You Or [...] SNOMED-CT Code Diagnosis ICD10 Code Diagnosis Note [id number] Mit[facility] [address] [place] [address] 10/14/2022 10:35:44 10/14/2022 11:59:32 Impacted cerumen in left ear 3385007691 229067 H61.22 Tinnitus of left ear 053 1393781 106 H93.12 [id number] Moises Tran MD [address] [facility] [place] [address] 10/26/2022 08:16:59 10/26/2022 09:42:20 Middle ear effusion 0990412781 H74.8X9 Chronic middle ear effusion with Tinnitus.W ill need t make a ENT follow up.Please follow up with PCP or Urgent Care in 3-5 days if no improvemen t or if any new symptoms occur that are concerning . Benign par oxysmal positional vertigo 438925086 H81.13 Dizziness triggered by the middle ear fluid.Plea se make a follow up with ENT as soon as you can [id number] JUAN A Melvin [address] [facility] [address] [place] [address] 11/01/2022 08:10:33 11/01/2022 09:07:36 Benign paroxysmal positional vertigo 680903328 H81.11 [id number] Mitzy Ellsworth MD [address] [facility] [address] [place] [address] 09/28/2023 12:53:05 09/28/2023 15:00:02 Pain in throat 738610430 R07.0 Foreign cornell dy in pharynx 48913353 T17.208A Hypopharyn geal foreign body. [id number] JUAN A Henderson [address] [facility] [address] [facility] [place] [address] 02/01/2024 10:31:22 02/01/2024 11:10:50 Increased frequency of urination 220475533 R35.0 You were seen today for increased urinary frequency and some bubbles in your urine. Your urine dip in clinic looks good. Since you are having symptoms, we will test for diabetes and make sure your kidneys are functionin g properly Please go to the ED if you start seeing blood in your urine or are haqving severe pain Paresthesia of finger 76 4406537 R20.2 You were seen today for numb [...] numbness and weakness Thank you for using [facility] today, please feel free to contact our [...] [employer]iva Member ID Guarantor Name 10/14/2022 1 [facility] (MEDICAID REPLACEMENT - HMO) EDINSON Colby Guerra [id number] Cottonorma De La Fuente Guerra 10/26/2022 1 [facility] (MEDICAID REPLACEMENT - HMO) EDINSON Colby Guerra [id number] Yadiel De La Fuente Guerra 11/01/2022 1 [facility] (MEDICAID REPLACEMENT - HMO) EDINSON Colby Guerra [id number] Cotto Leisa Guerra 09/28/2023 1 [facility] (MEDICAID REPLACEMENT - HMO) EDINSON Colby Guerra [id number] Cotto Leisa Guerra 02/01/2024 1 [facility] (MEDICAID REPLACEMENT - HMO) EDINSON Colby Guerra [id number] Cottonorma De La Fuente Guerra Notes Date Note Type Note Provider [...] Mitzy Ellsworth MD [address] [place], [address], [employer] [facility] 10/14/2022 12:11:37 10/27/19 23 text/htm l Dizziness [...] Moises Tran MD [address] [place], [address], [employer] [facility] 10/26/2022 09:53:06 11/02/19 23 text/htm l [...] JUAN A Soria [address] [place], [address], [employer] [facility] 11/01/2022 09:04:18 09/28/19 24 text/htm [...] Mitzy Ellsworth MD [address] [place], [address], [place] [employer] [facility] 10/05/2023 11:30:52 02/01/20 24 text/htm l 53 y/o female here with about a month of increasing urinary frequency, with bubbles in the toilet. Also with tingling to fingertips on both hands, for the past year, on and off at first, now constant JUAN A Henderson [address] [place], [address], [place] - [facility] 02/01/2024 11:10:04 OBGyn Episode No OBEpisode recorded.
--- OUTSIDE RECORDS SUMMARY | 2024-07-17 16:21 | XMS_ITS | Encounter Summary ---
Author Organization [facility] Address [address] [place] [address] Care Team Providers Care Gas Regulator Repairer Name Role Phone Leslie Vera MD Primary Care Provider [phone] Reason for Visit * Imaging (Routine) - Closed Specialty Diagnoses / Procedures Referred By Contac t Referred To Contact Diagnoses Varicose veins of both lower extremities with pain Procedures Vascular US duplex lower extremity venous insufficiency bilateral Dalia Estrella PA [address] [place] [address] Phone: tel: fax: [facility] Referral ID Status Reason Start Date Expiration Date Visits Re quested Visits Authorized [id number] Closed 06/06/2024 06/06/2025 1 1 Encounter Details Date Type Department Care Team (Latest Contact Info) Description 07/06/2024 2:45 PM EST Ancillary Procedure [facility] [address] [place] [phone] Varicose veins of both lower extremities with pain Social History Tobacco Use Types Packs/Day Years Used Date Smoking Tobacco: Never Smokeless Tobacco: Never Alcohol Use Standard Drinks/Week Comments Not Currently 0 (1 standard drink = 0.6 oz pur e alcohol) Comments Unknown Sex and Gender Information Value Date Recorded Sex Assigned at Not on file Legal Sex Female 10:27 PM EDT Gender Identity Not on file Sexual Orientation Not on file documented as of this encounter Plan of Treatment Upcoming Encounters Date Type Department Care Team (Late st Contact Info) Description 07/20/2024 11:30 AM EST Office Visit Obstetrics and Gynecology - [facility] [address] [place], [place] [phone] Kinsey Cotton, RENEE [address] [place] [address] 08/08/2024 11:00 AM EDT Office Visit Adult [facility] [place] [facility] [place] [address] [place] [address] Leslie Vera MD [address] [place], [place] 09/05/2024 4:00 PM EDT Office Visit Vascular Surgery - [place] [address] [place] [address] Lilian Simmons PA [address] [facility] [address] [place], [place] 01/31/2025 10:00 AM EDT Appointment Radiology Department - [address] [phone] documented as of this encounter Procedures Procedure Name Priority Date/Time Associated Diagnosis Comments VAS US DUPLEX LOWER EXT VENOUS INSUFFICIENCY BILATERAL Routine 07/06/2024 3:18 PM EST Varicose veins of both lower extremities with pain documented in this encounter Results * Vascular US duplex lower extremity [...] performed with the patient in reverse trendelenburg. Cover Inspector Details A fry scale, color and doppler analysis ultrasound was performed. During the study longitudinal and transverse views were obtained. Pulsed wave doppler was performed. us Dalia VELAZCO CV VASCULAR PROCEDURES Final R esult documented in this encounter Visit Diagnoses Diagnosis Varicose veins of both lower extremities with pain Encounter for screening mammogram for breast cancer documented in this encounter Care Teams Gas Regulator Repairer Relationship Specialty Start Date End Date Leslie Vera MD [address] [place] [address] PCP - General 08/10/22 documented as of this encounter
--- OUTSIDE RECORDS SUMMARY | 2024-07-17 16:21 | XMS_ITS | Data Portability ---
Author Organization [place] - [facility], Allergy Address [address] [address] [place] [address] Assessment Encounter Date Assessment Date Assessment LastModified [...] consider cognitive behavioral therapy; contact information for [facility] was provided. Follow up in 1-2 [...] Organization Details Recorded Time Dizziness and giddiness [id number] Active 2022 Dizziness and giddiness ; Note: Date Diagnosed : 11/03/2022 12:30 PM (R42) Not Available [facility] 4 02:48:18 Bilateral tinnitus 56773434090 02 Active 2022 Tinnitus, bilateral ; Note: Date Diagnosed : 10/21/2022 2:30 PM (H93.13) Not Available [facility] 4 02:48:16 Bilateral temporoma ndibular joint pain 39128913185 315670 Active 2022 Arthralgi a of bilateral temporoma ndibular joint; Note: Date Diagnosed : 10/21/2022 3:02 PM (M26.623) Not Available [facility] 4 02:48:19 Feeling of lump in throat 388245652 Active 2023 CLEVELAND CRUZ PA-C [address] [place] [address], [facility] JONELLE scott, [address] , [place] - [facility] 4 13:39:50 Sensorine ural hearing loss of bilateral ears 963591708 Active 2023 Bibiana vale [place] - [facility] 4 15:14:03 Problem Notes None recorded. Procedures Surgical History Date Name Laterality Status Provider Name and Address Organization Details Recorded Time 05/12/20 24 Air & Speech Audio with Tymps (12231, 02772 & 87049) completed Bibiana Woodson MA - [facility] 05/12/2024 15:13:56 09/29/19 24 Fiberoptic Laryngoscopy (Comprehensive) completed CLEVELAND CRUZ PA-C [address] [place] [address], [address], [place] - [facility] 09/29/2023 15:03:41 Imaging Results Imaging Date Name Status LastModified by [facility] Details LastModified Time 10/21/2022 imaging/diagno stic result [...] mg tablet 11/03 completed Medicati on ID: [id number] B rand Name: asher christian Sen d [...] Updated DateTime 09/29/2023 165.1 cm 20.8 kg/m2 53994.05 g Skylar Del Rosario MA [facility] 09/29/2023 13:41:09 Date Recorded Body height Body mass index (BMI) Body weight Provider Name and Address Organization Details Last Updated DateTime 05/12/2024 165.1 cm 20.8 kg/m2 84330.05 g Madison Milton MA [facility] 05/12/2024 14:47:44 Social History None recorded. [...] completed Skylar vale MA [facility] 09/29/2023 13:41:36 Past Encounters Encounter ID Performer Location Encounter Start Date Encounter Closed Date Diagnosis/Indication Diagnosis SNOMED-CT Code Diagnosis ICD10 Code Diagnosis Note [id number] CLEVELAND CRUZ PA-C [facility] [address] [address] 09/29/2023 13:33:19 09/29/2023 14:01:35 Feeling of lump in throat 969508225 R09.89 Neck radiograph reviewed by Dr. Blackmon. Calcificat ion of the cricoid cartilage without evidence of foreign body or trauma. Reassuranc e provided that the cryptic area in the left palatine tonsil is not a result of trauma and does not require care. Patient to follow up as needed. [id number] DANITA PEÑA MD [facility] [address] [address] 05/12/2024 14:46:12 05/12/2024 15:35:31 Sensorineural hearing loss of bilateral ears 357010298 H90.3 Audiologic al evaluation results: Right ear: [...] not maintain a hermetic seal}} Bilateral tinnitus 59067 19768 102 H93.13 Health Concerns Section Related Observation LastModified by Organization Detai ls LastModified Time None Recorded Concern Status LastModified by Organization Details LastModified Time None Recorded Advance Directives Directive None Recorded Payers Encounter Date Sequence Insurance Name Policy Number Policy Oliva Covered Member ID Oliva Member ID Guarantor Name 09/29/2023 1 [facility] (MEDICAID REPLACEMENT - HMO) EDINSON Guerra [id number] Yadiel Guerra 05/12/2024 1 [facility] (MEDICAID REPLACEMENT - HMO) EDINSON Guerra [id number] Yadiel Guerra Notes Date Note Type Note [...] represent foreign body. Patient was directed to [facility] ED where the image was reviewed and thought to represent a soft tissue density. However, patient was referred here for flexible fiberoptic laryngoscopy. Patient reports she has been eating and drinking well. No dysphagia, odynophagia, dyspnea, hemoptysis, sore throat, voice change, fever. CLEVELAND CRUZ PA-C [address] [facility],[address], [address], [place] - [facility] 09/29/2023 15:10:08 05/12/2024 text/html 51-year-old shabbir [...] of emotional stress. DANITA DAY MD [address] [facility],[address], [address], [place] - [facility] 05/12/2024 16:59:53 OBGyn Episode No OBEpisode recorded.
== END 2024-07-17 14:31 | disposition home or self-care (01) ==
LOC: HO.HOS 13:50
PROVIDERS: PCP Internal Medicine
DX: G56.03 Carpal tunnel syndrome, bilateral upper limbs (principal)
CPT/HCPCS: 99204

== ENCOUNTER → 2024-07-17 13:50 | Outpatient (BNVA) | payer OTHER, SELFPAY | PROVIDERS: PCP Internal Medicine | DX: G56.03 Carpal tunnel syndrome, bilateral upper limbs (principal) | CPT/HCPCS: 99202 ==

== ENCOUNTER 2024-09-05 07:58 | Day surgery (SDC) | payer OTHER, SELFPAY ==
--- OUTSIDE RECORDS SUMMARY | 2024-08-22 14:26 | XMS_ITS | Clinical Summary ---
Author Organization [facility] Address [address] [place] [address] Care Team Providers Care Tractor Operator Name Role Phone Leslie Vera MD Primary Care Provider [phone] Allergies No known active allergies Medications melatonin [...] PT, yoga, other exercise, Western medicine and Nepali medicine when she went back to [place] [...] Encounters Date Type Department Care Team Description 07/20/2024 11:30 AM EST Office Visit Obst[facility]s [facility]ne[facility] [place] [address] [place] [address] Kinsey Cotton CNM Encounter for annual physical examination excluding gynecological examination in a patient older than 17 years (Primary Dx) 07/06/2024 2:45 PM EST Ancillary Procedure [facility] [address] [place] [address] Varicose veins of both lower extremities with pain 06/06/2024 3:30 PM EST Consult Vascular Surgery - [place] [address] [place] [address] Dalia Estrella PA Varicose veins of both lower extremities with pain (Primary Dx) from Last 3 Months Immunizations Name Administration Dates Next Due Hepatitis A Adult (Havrix; V aqta) 19yo and older 10/07/2022 Influenza Quadravalent, MDCK , 0.5ml, preservative free (Flucelvax) 6mo and older 02/07/2022,01/13/2019,02/28/2017 Influenza trivalent, with preservative (Fluzone; Afluria) 6mo and older 02/23/2023,03/19/2020,03/22/2018,2014,03/04/2011 Influenza, Unspecified 03/22/2018 SoundSenasation SARS-CoV-2 COVID-19, mRNA, LNP-S, preservative free 07/06/2020 [...] 3 Alive Brother 4 Alive Father Alive Maternal Grandfather Maternal Grandmother Mother Alive Paternal Grandfather Paternal Grandmother Sister 1 Alive Sister 2 Alive Social History Tobacco Use Types Packs/Day Years Used Date Smoking Tobacco: Never Smokeless Tobacco: Never Tobacco Cessation:Counseling Given: Not Answered Alcohol Use Standard Drinks/Week Comments Not Currently 0 (1 standard drink = 0.6 oz pur e alcohol) Comments No Sex and Gender Information Value Date Recorded Sex Assigned at Not on file Legal Sex Female 10:27 PM EDT Gender Identity Not on file Sexual Orientation Not on file Obstetrics History Para Term AB IAB SAB Ectopic Multiple Livin g Live Births 2 2 2 Date Outcome GA Total Labor Labor/2nd/3rd Weight Sex Type Anes PTL Michelle A1 A5 Name Clin Term Term Last Filed Vital Signs Vital Sign Reading Time Taken Comments Blood Pressure 123/84 07/20/2024 11:40 AM EST Pulse 66 07/20/2024 11:40 AM EST Temperature - - Respiratory Rate 18 07/20/2024 11:40 AM EST Oxygen Saturation - - Inhaled Oxygen Concentration - - Weight 56.4 kg (124 lb 6.4 oz) 07/20/2024 11:40 AM EST Height 165.1 cm (5' 5 ) 07/20/2024 11:40 AM EST Body Mass Index 20.7 07/20/2024 11:40 AM EST Plan of Treatment Upcoming Encounters Date Type Department Care Team (Late st Contact Info) Description 08/30/2024 3:00 PM EDT Office Visit Vascular Surgery - [place] [address] [place] [phone] Shu Hutson MD [address] [place] [address] 09/21/2024 9:45 AM EDT Office Visit Adult Medicine [address] [phone] Leslie Vera MD [address] [place] [address] 01/31/2025 10:00 AM EDT Appointment Radiology Department - [address] [address] [place] [place] [phone] 04/27/2025 3:00 PM EST Office Visit Adult Medicine [address] [place] [phone] Leslie Vera MD [address] [place] Health Maintenance Due Date Last Done Comments [...] age to complete this topic Meningococcal B Vaccine Aged Out No l onger eligible based on patient's age to complete [...] performed with the patient in reverse trendelenburg. Plaster Lather Details A fry scale, color and doppler analysis ultrasound was performed. During the study longitudinal and transverse views were obtained. Pulsed wave doppler was performed. us Dalia VELAZCO CV VASCULAR PROCEDURES Final R esult * Hm Depression Screening (02/04/2024) HM Depression Screening abstracted us Historical Provider HEALTH MAINTENANCE Final Result * [...] in 12 months. BI-RADS: Category 1: Negative [address] [address] [phone] Procedure Note Caitlyn Nunez MD - 03/01/2024 [...] in 12 months. BI-RADS: Category 1: Negative [address] [address] [phone] Svitlana Castillo DO IMG XR PROCEDURES Final Result * Cervical Cancer Screening: HPV (10/29/2022) [facility] Cervical Cancer Screening: HPV abstracted ,negative [facility] Provider HEALTH MAINTENANCE Final Result * Hepatitis C Screening (10/07/2022) [facility] Hepatitis C Screening abstracted [facility] Provider HEALTH MAINTENANCE Final Result * Lipid panel (10/07/2022) [facility] LDL/HDL Ratio 2 0 - 4 Triglycerides 59 0 - 150 mg/dL Cholesterol 178 0 - 200 mg/dL HDL 84 >=40 mg/dL LDL Cholesterol 83 0 - 100 mg/dL Blood Venous blood specimen / Unknown [facility] Provider LAB BLOOD ORDERABLES Sherrie l Result * Colonoscopy (03/23/2022) [facility] Colonoscopy abstracted,no interpretation Anatomical Region Laterality Modality Other [facility] Provider HEALTH MAINTENANCE Final Result from Last 3 Months or Most Recently Relevant to Health Maintenance Insurance [facility] Care Teams Tractor Operator Relationship Specialty Start Date End Date Leslie Vera MD [address] [place] [address] PCP - General 08/10/22
--- OUTSIDE RECORDS SUMMARY | 2024-08-22 14:26 | XMS_ITS | Clinical Summary ---
Author Organization [facility] Address [address] [place] [address] Care Team Providers Care Coat Operator Name Role Phone Unavailable Primary Care Provider [...]
--- OUTSIDE RECORDS SUMMARY | 2024-08-22 14:26 | XMS_ITS | Data Portability ---
Author Organization JUAN A Dowell s, [address] Address [address] [place] [address] Care Team Providers Care Mine Analyst Name Role Phone [facility] Care Provider Assessment No assessment recorded. Plan of Treatment Reminders Order Date Submit Date Provider Last Modified By Organization Details Last Modified Time Details Appointments None recorded. Lab urinalysis, dipstick 2023 024 [email or web address] [facility], [address] [place], [address], 4 10:58:11 CMP, serum or plasma 2023 024 MUNCIE [facility], [address] [place] [address], [place], [address], 4 06:07:45 Referral emergency medicine referral [address] [facility], [address] [place], [address], 4 15:00:03 Procedures cerumen removal (PROC) 2022 023 [email or web address] Not available 3 07:53:33 Surgeries None recorded. Imaging XR, neck, soft tissue - r/o foreign body (chicken bone), air in soft tissue 2023 024 acardinal 3 [facility], [address] [place] [address]., [place], [address], 4 15:00:03 Medication Orders meclizine 25 mg tablet 2022 023 [facility] #[id number], [address] [place] [address], [address], 3 09:04:06 prednisone 20 mg tablet 2022 023 [email or web address] 31 [facility] #[id number], [address] [place] [address], [address], 4 10:40:52 fexofenadin e-pseudoeph edrine ER 180 mg-240 mg tablet,ext. release 24 hr 2022 023 BALJIT [facility] #[id number], [address] [place] [address], [address], 3 09:41:03 Patient TargetsNo targets recorded. Patient Instructions Encounter Date Encounter Id Patient Instructions Last Modified By Organization Details Last Modified Time 10/14/2022 [id number] earwax blockage: care instructions [email or web address] Not available 10/14/2022 11:30:52 tinnitus: care instructions [email or web address] Not available 10/14/2022 11:37:19 tinnitus information [email or web address] Not available 10/14/2022 11:37:19 Your earwax was completely removed and does not appear to be the cause of your tinnitus. Keep the appointment that you have scheduled for 10/29/22 with your ENT doctor. See printed instructions. Seek Emergency Medical evaluation for any worsening symptoms. Not available 10/14/2022 11:58:14 10/26/2022 [id number] dizziness: care instructions Not available 10/26/2022 09:41:00 tinnitus: care instructions Not available 10/26/2022 09:41:00 11/01/2022 [id number] benign paroxysma l positional vertigo (bppv): care [...] ENT providers Not available 11/01/2022 08:55:56 09/28/2023 [id number] You have been advised to go now to the Emergency Department for further evaluation of a foreign body (?chicken bone) in your throat. [facility] ER has been advised of your impending arrival. Do not eat or drink anything until cleared by ER staff. You evaluation, treatment and final disposition will be determined by ER staff. Not available 09/28/2023 14:53:52 02/01/2024 [id number] frequent urination: care instructions [email or web address] Not available [...] 70-99 above high normal Not Available [facility] ([facility]) [address] [place], [address], 02/02/2024 06:07:45 02/01/20 24 02/02/2024 COMP. METAB OLIC PANEL (14) BUN 11 mg/dL 6-24 normal Not Available [facility] ([facility]) [address] [place], [address], 02/02/2024 06:07:45 02/01/20 24 02/02/2024 COMP. METAB OLIC PANEL (14) creatinine 0.58 mg/dL 0.57-1 .00 normal Not Available [facility] ([facility]) [address] [place], [address], 02/02/2024 06:07:45 02/01/20 24 02/02/2024 COMP. METAB OLIC PANEL (14) eGFR 109 mL/mi n/1.7 3 >59 normal Not Available [facility] ([facility]) [address] [facility], [place], [address], 02/02/2024 06:07:45 02/01/20 24 02/02/2024 COMP. METAB OLIC PANEL (14) BUN/creatini ne ratio 19 9-23 normal Not Available [facility]) [address] [facility], [place], [address], 02/02/2024 06:07:45 02/01/20 24 02/02/2024 COMP. METAB OLIC PANEL (14) sodium 142 mmol/ L 134-14 4 normal Not Available [facility] ([facility]) [address] [facility], [place], [address], 02/02/2024 06:07:45 02/01/20 24 02/02/2024 COMP. METAB OLIC PANEL (14) potassium 4.2 mmol/ L 3.5-5. 2 normal Not Available [facility] ([facility]) [address] [facility], [place], [address], 02/02/2024 06:07:45 02/01/20 24 02/02/2024 COMP. METAB OLIC PANEL (14) chloride 102 mmol/ L 96-106 normal Not Available [facility] ([facility]) [address] [facility], [place], [address], 02/02/2024 06:07:45 02/01/20 24 02/02/2024 COMP. METAB OLIC PANEL (14) carbon dioxide, total 26 mmol/ L 20-29 normal Not Available [facility] ([facility]) [address] [facility], [place], [address], 02/02/2024 06:07:45 02/01/20 24 02/02/2024 COMP. METAB OLIC PANEL (14) calcium 9.9 mg/dL 8.7-10 .2 normal Not Available [facility] ([facility]) [address] [facility] [place], [address], 02/02/2024 06:07:45 02/01/20 24 02/02/2024 COMP. METAB OLIC PANEL (14) protein, total 7.2 g/dL 6.0-8. 5 normal Not Available [facility] ([facility]) [address] [facility] [place], [address], 02/02/2024 06:07:45 02/01/20 24 02/02/2024 COMP. METAB OLIC PANEL (14) albumin 4.8 g/dL 3.8-4. 9 normal Not Available [facility] ([facility]) [address] [facility] [place], [address], 02/02/2024 06:07:45 02/01/20 24 02/02/2024 COMP. METAB OLIC PANEL (14) globulin, total 2.4 g/dL 1.5-4. 5 Not Available [facility] ([facility]) [address] [place], [address], 02/02/2024 06:07:45 02/01/20 24 02/02/2024 COMP. METAB OLIC PANEL (14) bilirubin, total 0.8 mg/dL 0.0-1. 2 normal Not Available [facility] ([facility]) [address] [place], [address], 02/02/2024 06:07:45 02/01/20 24 02/02/2024 COMP. METAB OLIC PANEL (14) alkaline phosphatase 98 IU/L 44-121 normal Not Available [facility] [address] [facility] [place], [address], 02/02/2024 06:07:45 02/01/20 24 02/02/2024 COMP. METAB OLIC PANEL (14) AST (SGOT) 20 IU/L 0-40 normal Not Available [facility] ([facility]) [address] [facility], [place], [address], 02/02/2024 06:07:45 02/01/20 24 02/02/2024 COMP. METAB OLIC PANEL (14) ALT (SGPT) 16 IU/L 0-32 normal Not Available [facility] ([facility]) [address] [facility], [place], [address], 02/02/2024 06:07:45 02/01/20 24 02/01/2024 urina lysis , dipst ick Unknown Analyte Normal = light yellow Not Available [address] [place], [address], 02/01/2024 10:41:35 02/01/20 24 02/01/2024 urina lysis , dipst ick Unknown Analyte Normal = clear Not Available [address] [place], [address], 02/01/2024 10:41:35 02/01/20 24 02/01/2024 urina lysis , dipst ick Unknown Analyte Normal = negati ve Not Available [address] [place], [address], 02/01/2024 10:41:35 02/01/20 24 02/01/2024 urina lysis , dipst ick Unknown Analyte Negati ve Not Available [address] [place], [address], 02/01/2024 10:41:35 02/01/20 24 02/01/2024 urina lysis , dipst ick Unknown Analyte Normal = Negati ve Not Available [address] [place], [address], 02/01/2024 10:41:35 02/01/20 24 02/01/2024 urina lysis , dipst ick Unknown Analyte Negati ve Not Available [address] [place], [address], 02/01/2024 10:41:35 02/01/20 24 02/01/2024 urina lysis , dipst ick Unknown Analyte Normal = Negati ve Not Available [address] [place], [address], 02/01/2024 10:41:35 02/01/20 24 02/01/2024 urina lysis , dipst ick Unknown Analyte Negati ve Not Available [address] [place], [address], 02/01/2024 10:41:35 02/01/20 24 02/01/2024 urina lysis , dipst ick Unknown Analyte Normal = 1.010, 1.015, 1.020 Not Available [address] [place], [address], 02/01/2024 10:41:35 02/01/20 24 02/01/2024 urina lysis , dipst ick Unknown Analyte Normal = Negati ve Not Available [address] [place], [address], 02/01/2024 10:41:35 02/01/20 24 02/01/2024 urina lysis , dipst ick Unknown Analyte Trace- lysed Not Available [address] [place], [address], 02/01/2024 10:41:35 02/01/20 24 02/01/2024 urina lysis , dipst ick Unknown Analyte Normal = 6.5, 7.0, 7.5, 8.0 Not Available [address] [place], [address], 02/01/2024 10:41:35 02/01/2002/01/2024 urina lysis , dipst ick Unknown Analyte Normal = Negati ve Not Available [address] [place], [address], 02/01/2024 10:41:35 02/01/20 24 02/01/2024 urina lysis , dipst ick Unknown Analyte Negati ve Not Available [address] [place], [address], 02/01/2024 10:41:35 02/01/20 24 02/01/2024 urina lysis , dipst ick Unknown Analyte Normal = 0.2, 1.0 Not Available [address] [place], [address], 02/01/2024 10:41:35 02/01/20 24 02/01/2024 urina lysis , dipst ick Unknown Analyte Normal = Negati ve Not Available [address] [place], [address], 02/01/2024 10:41:35 02/01/2002/01/2024 urina lysis , dipst ick Unknown Analyte Negati ve Not Available [address] [place], [address], 02/01/2024 10:41:35 02/01/2002/01/2024 urina lysis , dipst ick Unknown Analyte Normal = Negati ve Not Available [address] [place], [address], 02/01/2024 10:41:35 02/01/20 24 02/01/2024 urina lysis , dipst ick Unknown Analyte Negati ve Not Available [address] [place], [address], 02/01/2024 10:41:35 02/01/20 24 02/01/2024 urina lysis , dipst ick Unknown Analyte Yellow Not Available [address] [place] [address] [address] [place], [address], 02/01/2024 10:41:35 02/01/20 24 02/01/2024 urina lysis , dipst ick Unknown Analyte Clear Not Available [address] [place] [address] [address] [place], [address], 02/01/2024 10:41:35 02/01/20 24 02/01/2024 urina lysis , dipst ick Unknown Analyte 1.015 Not Available [address] [place] [address] [address] [place], [address], 02/01/2024 10:41:35 02/01/20 24 02/01/2024 urina lysis , dipst ick Unknown Analyte 7.0 Not Available [address] [place] [address] [address] [place], [address], 02/01/2024 10:41:35 02/01/20 24 02/01/2024 urina lysis , dipst ick Unknown Analyte 0.2 E.U./d L Not Available [address] [place], [address], 02/01/2024 10:41:35 09/28/19 24 09/28/2023 XR, neck, soft tissu e No observ ation record ed. [email or web address] [facility] [address] [facility] [place], [address], 09/28/2023 15:11:14 Result Notes None recorded. Problems Name Problem SNOMED Code Status Onset Date Resolution Date Notes Provider Name and Address Organization Details Recorded Time Chronic back pain 347593145 Active 2016 JUAN A Adams [facility] 3 10:50:30 Chronic neck pain 4052579270823 Active 1982 40x years JUAN A Adams [facility] 3 10:50:51 Problem Notes None recorded. Procedures Surgical History Date Name Laterality Status Provider Name and Address Organization Details Recorded Time Cerumen Removal by Irrigation completed ALANIS Hsieh [facility] 10/14/2022 11:48:01 Imaging Results Imaging Date Name Status LastModified by Organ ation Details LastModified Time 09/28/2023 XR, neck, soft tissue completed [email or web address] [facility] [address] [facility] [place], [address], 09/28/2023 15:11:14 Procedure Notes None recorded. Medical [...] /min 98 [degF] 165.1 cm 20.3 kg/m2 78021.2 7 g 114 mm[Hg] 73 mm[Hg] LIYA FREITAS [place] - [facility] 3 10:52:21 Date Recorded Body height Body mass index (BMI) Body weight Pain severity - 0-10 verbal numeric rating [Score] - Reported Oxygen saturation Oxygen saturation in Arterial blood by Pulse oximetry Heart rate Respiratory rate Body temperature Systolic blood pressure Diastolic blood pressure Provider Name and Address Organization Details Last Updated DateTime 3 165.1 cm 20 kg/m2 69813.0 8 g 0 100 % 100 % [...] Updated DateTime 3 165.1 cm 20 kg/m2 24040.0 8 g 0 100 % 100 % 71 /min 18 /min 97.7 [degF] 128 mm[Hg] 87 mm[Hg] JEREMI ALDANA [facility] 3 08:26:38 Date Recorded Body height Body mass index (BMI) Body weight Pain severity - 0-10 verbal numeric rating [Score] - Reported Oxygen saturation Oxygen saturation in Arterial blood by Pulse oximetry Heart rate Respiratory rate Body temperature Systolic blood pressure Diastolic blood pressure Provider Name and Address Organization Details Last Updated DateTime 4 165.1 cm 20.5 kg/m2 82581.8 6 g 5 97 % 97 % 76 /min 18 /min 97.9 [degF] 132 mm[Hg] 84 mm[Hg] Lyn Noel [facility] [place] [facility] 4 13:55:17 Date Recorded Body height Body mass index (BMI) Body weight Oxygen saturation Oxygen saturation in Arterial blood by Pulse oximetry Heart rate Respiratory rate Body temperature Systolic blood pressure Diastolic blood pressure Provider Name and Address Organization Details Last Updated DateTime 4 165.1 cm 20.5 kg/m2 67076.8 6 g 100 % 100 % 69 /min 18 /min 98.7 [degF] 134 mm[Hg] 88 mm[Hg] Lyn Noel [facility] 4 10:41:17 Social History Question Answer Notes LastModified by Organizat ion Details LastModified Time Tobacco Smoking Status Never Smoker JUAN A Adams - [facility] 10/14/2022 10:51:04 What Is Your Level Of Alcohol Consumption? None Information not available 10/14/2022 Have You Had A Flu Shot This Season? Yes Information not available 09/28/2023 What Was The Date Of Your Most Recent Tobacco Screening? 02/01/2024 [email or web address] Information not available 02/01/2024 Do You Use Any Illicit Or Recreational Drugs? No Information not available 10/14/2022 Have You Recently Traveled Abroad? No [email or web address] Information not available 09/28/2023 Do You Or [...] SNOMED-CT Code Diagnosis ICD10 Code Diagnosis Note [id number] Mitzy Ellsworth MD [facility] [address] [place] [address] 10/14/2022 10:35:44 10/14/2022 11:59:32 Impacted cerumen in left ear 9439413375 351833 H61.22 Tinnitus of left ear 957 6828685 106 H93.12 [id number] Moises Tran MD [address] [facility] [place] [address] 10/26/2022 08:16:59 10/26/2022 09:42:20 Middle ear effusion 4619467188 H74.8X9 Chronic middle ear effusion with Tinnitus.W ill need t make a ENT follow up.Please follow up with PCP or Urgent Care in 3-5 days if no improvemen t or if any new symptoms occur that are concerning . Benign par oxysmal positional vertigo 410529836 H81.13 Dizziness triggered by the middle ear fluid.Plea se make a follow up with ENT as soon as you can [id number] JUAN A Melvin [address] [facility] [address] [place] [address] 11/01/2022 08:10:33 11/01/2022 09:07:36 Benign paroxysmal positional vertigo 551610756 H81.11 [id number] Mitzy Ellsworth [place] [address] [facility] [address] [place] [address] 09/28/2023 12:53:05 09/28/2023 15:00:02 Pain in throat 365742963 R07.0 Foreign cornell dy in pharynx 97700483 T17.208A Hypopharyn geal foreign body. [id number] JUAN A Henderson [address] [facility] [address] [facility] [place] [address] 02/01/2024 10:31:22 02/01/2024 11:10:50 Increased frequency of urination 606235271 R35.0 You were seen today for increased urinary frequency and some bubbles in your urine. Your urine dip in clinic looks good. Since you are having symptoms, we will test for diabetes and make sure your kidneys are functionin g properly Please go to the ED if you start seeing blood in your urine or are haqving severe pain Paresthesia of finger 76 9844557 R20.2 You were seen today for numb [...] numbness and weakness Thank you for using [employer] today, please feel free to contact our [...] Oliva Member ID Guarantor Name 10/14/2022 1 [facility] (MEDICAID REPLACEMENT - HMO) EDINSON Colby Guerra [id number] Cottonorma De La Fuente Guerra 10/26/2022 1 [facility] (MEDICAID REPLACEMENT - HMO) EDINSON Colby Guerra [id number] Yadiel De La Fuente Guerra 11/01/2022 1 [facility] (MEDICAID REPLACEMENT - HMO) EDINSON Colby Guerra [id number] Cotto Leisa Guerra 09/28/2023 1 [facility] (MEDICAID REPLACEMENT - HMO) EDINSON Colby Guerra [id number] Cotto Leisa Guerra 02/01/2024 1 [facility] (MEDICAID REPLACEMENT - HMO) EDINSON Colby Guerra [id number] Cottonorma De La Fuente Guerra Notes Date [...] Mitzy Ellsworth MD [address] [place], [address], [employer] [facility] 10/14/2022 12:11:37 10/27/19 23 text/htm l Dizziness [...] Moises Tran MD [address] [place], [address], [facility] 10/26/2022 09:53:06 11/02/19 23 text/htm l [...] JUAN A Soria [address] [place], [address], [employer] [facility] 11/01/2022 09:04:18 09/28/19 24 text/htm [...] Mitzy Ellsworth MD [address] [place], [address], [place] [employer] [facility] 10/05/2023 11:30:52 02/01/20 24 text/htm l 53 y/o female here with about a month of increasing urinary frequency, with bubbles in the toilet. Also with tingling to fingertips on both hands, for the past year, on and off at first, now constant JUAN A Henderson [address] [place], [address], [place] - [facility] 02/01/2024 11:10:04 OBGyn Episode No OBEpisode recorded.
--- OUTSIDE RECORDS SUMMARY | 2024-08-22 14:27 | XMS_ITS | Data Portability ---
Author Organization [place] - [facility], Allergy Address [address] [address] [place] [address] Assessment Encounter Date Assessment Date Assessment LastModified [...] consider cognitive behavioral therapy; contact information for [facility] was provided. Follow up in 1-2 years [...] Organization Details Recorded Time Dizziness and giddiness 018188976 Active 2022 Dizziness and giddiness ; Note: Date Diagnosed : 11/03/2022 12:30 PM (R42) Not Available [facility] 4 02:48:18 Bilateral tinnitus 01057574450 02 Active 2022 Tinnitus, bilateral ; Note: Date Diagnosed : 10/21/2022 2:30 PM (H93.13) Not Available [facility] 4 02:48:16 Bilateral temporoma ndibular joint pain 12607634223 179512 Active 2022 Arthralgi a of bilateral temporoma ndibular joint; Note: Date Diagnosed : 10/21/2022 3:02 PM (M26.623) Not Available [facility] 4 02:48:19 Feeling of lump in throat 456286055 Active 2023 CLEVELAND CRUZ PA-C [address] [place] [address], [facility] JONELLE scott, [address] , [place] - [facility] 4 13:39:50 Sensorine ural hearing loss of bilateral ears 154454389 Active 2023 Bibiana vale [place] - [facility] 4 15:14:03 Problem Notes None recorded. Procedures Surgical History Date Name Laterality Status Provider Name and Address Organization Details Recorded Time 05/12/20 24 Air & Speech Audio with Tymps (01619, 18626 & 60737) completed Bibiana Woodson [place] - [facility] 05/12/2024 15:13:56 09/29/19 24 Fiberoptic Laryngoscopy (Comprehensive) completed CLEVELAND CRUZ PA-C [address] [place] [address], [address], [place] - [facility] 09/29/2023 15:03:41 Imaging Results Imaging Date Name Status LastModified by Organiz [facility] Details LastModified Time 10/21/2022 imaging/diagno stic result [...] mg tablet 11/03 completed Medicati on ID: [id number] B rand Name: asher christian Sen d [...] Updated DateTime 09/29/2023 165.1 cm 20.8 kg/m2 88409.05 g Skylar Del Rosario MA [facility] 09/29/2023 13:41:09 Date Recorded Body height Body mass index (BMI) Body weight Provider Name and Address Organization Details Last Updated DateTime 05/12/2024 165.1 cm 20.8 kg/m2 09513.05 g Madison Milton MA [facility] 05/12/2024 14:47:44 Social History None [...] completed Skylar vale MA [facility] 09/29/2023 13:41:36 Past Encounters Encounter ID Performer Location Encounter Start Date Encounter Closed Date Diagnosis/Indication Diagnosis SNOMED-CT Code Diagnosis ICD10 Code Diagnosis Note [id number] CLEVELAND CRUZ PA-C [facility] [address] [address] 09/29/2023 13:33:19 09/29/2023 14:01:35 Feeling of lump in throat 182451464 R09.89 Neck radiograph reviewed by Dr. Blackmon. Calcificat ion of the cricoid cartilage without evidence of foreign body or trauma. Reassuranc e provided that the cryptic area in the left palatine tonsil is not a result of trauma and does not require care. Patient to follow up as needed. [id number] DANITA PEÑA MD [facility] [address] [address] 05/12/2024 14:46:12 05/12/2024 15:35:31 Sensorineural hearing loss of bilateral ears 902956037 H90.3 Audiologic al evaluation results: Right ear: [...] not maintain a hermetic seal}} Bilateral tinnitus 60030 11316 102 H93.13 Health Concerns Section Related Observation LastModified by Organization Detai ls LastModified Time None Recorded Concern Status LastModified by Organization Details LastModified Time None Recorded Advance Directives Directive None Recorded Payers Encounter Date Sequence Insurance Name Policy Number Policy Oliva Covered Member ID Oliva Member ID Guarantor Name 09/29/2023 1 [facility] (MEDICAID REPLACEMENT - HMO) EDINSON Guerra [id number] Yadiel Guerra 05/12/2024 1 [facility] (MEDICAID REPLACEMENT - HMO) EDINSON Guerra [id number] Yadiel Guerra Notes Date Note Type Note [...] represent foreign body. Patient was directed to [facility] ED where the image was reviewed and thought to represent a soft tissue density. However, patient was referred here for flexible fiberoptic laryngoscopy. Patient reports she has been eating and drinking well. No dysphagia, odynophagia, dyspnea, hemoptysis, sore throat, voice change, fever. CLEVELAND CRUZ PA-C [address] [facility],[address], [address], [place] - [facility] 09/29/2023 15:10:08 05/12/2024 text/html 51-year-old [...] have a lot of emotional stress. DANITA ADY MD [address] [facility],[address], [address], [place] - [facility] 05/12/2024 16:59:53 OBGyn Episode No OBEpisode recorded.
[2024-09-05 08:10] VITALS: BP 130/75; PULSE 78; RESP 18; TEMP 36.8; O2SAT 100; BMI 20.9
--- NOTE | 2024-09-05 08:39 | MHC.SHP ---
Pre-Procedural Eval Section A - 24 Hr Update-Section A only Date of Service: 09/05/24 The patient is an INPATIENT: No Changes since office visit: No Cold of Flu in the past 2 weeks, No New Medical Problems, No Changes in Medication and No Patient answered all questions The patient has been examined within 24 hours of the surgical procedure. The History & Physical has been completed within 30 days and I have reviewed it.: Yes Section B - Complete if H&P > 30 days Chief Complaint: Carpal tunnel syndrome, right upper limb Allergies: Allergies Allergy/AdvReac Type Severity Reaction Status Date / Time No Known Allergies Allergy Verified 07/17/24 14:03 Plan Diagnosis/Plan: Unchanged I have reviewed the history and physical and performed a pertinent physical examination on my patient. No changes have occurred unless specified. Time Spent With Patient Time: Total time managing care of this patient today ____ minutes.
--- NOTE | 2024-09-05 08:41 | W.PM.OPN ---
Operative Note Operative Note Date of Service: 09/05/24 Narrative: Preop diagnosis: 1. Right Carpal tunnel syndrome Postop diagnosis: same Procedure: 1. Right Carpal tunnel release Surgeon: Harleen Heller MD Floor Runner: Mando VELAZCO Anesthesia: local block using 1% lidocaine with epinephrine Findings: Thickened transverse carpal ligament. EBL: Less than 5 mL Specimens: None Complications: None Disposition: Brought to recovery room in stable condition Plan: Follow-up for 10-14 days for wound check and suture removal Indications: The patient is 54 years old, with right carpal tunnel syndrome that has been unresponsive to nonoperative management. The risks and benefits of operative treatment including but not limited to risk of damage to blood vessels, nerves, tendons, infection, persistent pain, persistent symptoms, or possible need for additional surgery were discussed with the patient and the patient wishes to proceed with surgery. Procedure: Once consent was obtained a local block was performed using a combination of 1% lidocaine with epinephrine. The patient was then brought back to the operating suite and placed on the operative table in supine position. The right upper extremity was prepped and draped in a standard surgical fashion. Once assured that we had a good block, a 2.0 cm longitudinal incision was made centered over the carpal tunnel. The incision was made through the skin to the subcutaneous tissues using a #15 blade. Dissection was made down to the level of the transverse carpal ligament with care being taken to protect the palmar cutaneous nerve. Once the transverse carpal ligament was clearly visualized, a longitudinal incision was made in the transverse carpal ligament 1st using a #15 blade, then using tenotomy scissors under direct visualization. Care was taken to look for and protect the motor branch of the median nerve when seen in this area. Once satisfied with our carpal tunnel release the wound was copiously irrigated with normal saline and hemostasis was obtained with a brief period of local pressure. The skin edges were reapproximated with some 5.0 nylon suture material and a sterile dressing was applied. The patient appears to have tolerated the procedure well and with no complications. All digits were well vascularized at the conclusion of the case.
[2024-09-05 09:05] VITALS: BP 117/66; PULSE 78; RESP 18; TEMP 36.4; O2SAT 100
== END 2024-09-05 09:07 | disposition home or self-care (01) ==
PROVIDERS: PCP Internal Medicine; Visit Provider Orthopaedic Surgery
PROC: (CPT 64721; principal; 2024-09-05 09:00)
DX: G56.01 Carpal tunnel syndrome, right upper limb (principal); R20.0 Anesthesia of skin; R20.2 Paresthesia of skin
CPT/HCPCS: 64721; J0171; J2003

== ENCOUNTER → 2024-09-05 07:58 | Outpatient (BNV) | payer OTHER, SELFPAY | PROVIDERS: PCP Internal Medicine; Visit Provider Orthopaedic Surgery | DX: G56.01 Carpal tunnel syndrome, right upper limb (principal) | CPT/HCPCS: 64721 ==

== ENCOUNTER 2024-09-19 15:20 | Outpatient (AMB) | payer OTHER, SELFPAY ==
[2024-09-19 15:58] VITALS: BMI 20.8
--- NOTE | 2024-09-19 15:58 | MHC.OFFVIS ---
Vital Signs 09/19/24 15:58 Height 5 ft 5 in Weight 125 lb BMI 20.8 Intake Visit Reasons: PO RT CTR 09/05/24 AR Intake Note: Mello 54 yr old female presents today for a post operative visit after undergoing a right CTR on 09/05/24. Patient states symptoms are about the same however patient states she is able to sleep better at night time. Suture removed and steri-strips applied. Allergies No Known Allergies Allergy (Verified 09/19/24 16:06) HPI HPI PO RT CTR 09/05/24 AR: Details: Yadiel is a 54 year old right hand dominant woman who presents S/P right carpal tunnel release, DOS: 09/05/24. She says she is doing well, and her sensation is about the same . She does say she is able to sleep better at night, which she is happy about. She has left carpal tunnel syndrome, with dense numbness. Review of Systems Const All systems reviewed & are unremarkable except as noted in HPI and below Physical Exam Vital Signs: BMI result Body Mass Index 20.8 Const General: no acute distress and alert Orientation/consciousness: patient oriented x3 Neuro General: patient oriented x3 Extrem Other: The patient was alert oriented and in no acute distress The incision is healing well with no erythema drainage or evidence of infection. Sutures removed and Steri-Strips applied She can make a fist and extend all her digits Still with dense numbness in the median nerve distribution bilaterally. Cap refill is brisk Nerve Conduction Study: Moderate to severe carpal tunnel on the left and moderate carpal tunnel on the right Dr. Slaughter 03/29/24 Psych Appearance: grossly normal Affect: normal affect Attitude: cooperative Assessment & Plan Assessment & Plan (1) Bilateral carpal tunnel syndrome: Code(s): G56.03 - Carpal tunnel syndrome, bilateral upper limbs Category: Medical Plan Assessment & Plan: 1. Right carpal tunnel syndrome, S/P release DOS: 09/05/24 Pre-operatively with dense numbness Now with dense numbness but improvement in her nighttime symptoms The patient appears to be doing well post-operatively I educated her about the post-operative course I explained the risks of her sensation not returning, but that surgery was important to maintain muscle function and preserve any sensation possible. I explained that it may take up to 9 months post-operatively for any sensation to return. I explained the signs and symptoms of infection, if the patient develops any new or worsening erythema, drainage, pain, or warmth they should contact the clinic or attend the ED. I discussed activity modifications, she is to lift nothing heavier than a cellphone for the next 2 weeks She will perform gentle ROM exercises at home She should avoid any underwater activities for the next 5 days She should gently massage about the incision site to reduce the risk of hypersensitivity 2. Left carpal tunnel release, moderate-severe With dense numbness, worse at night I educated her about this condition I discussed operative and non-operative treatment options The patient would like to proceed with surgery The risks and benefits of operative treatment were discussed with the patient and the patient wishes to proceed with surgery. These risks include, but are not limited to risk of damage to blood vessels, nerves, tendons, infection, recurrence, incomplete relief of preoperative symptoms, persistent pain, possible need for further surgery and the risks associated with regional blocks and anesthesia. The plan is to take the patient to the operating room sometime in the next few weeks for the following procedures: 1. Left carpal tunnel release, under local All of the preoperative paperwork including the consent was reviewed today. All the patient's questions were answered. The patient understands that they will be contacted by our supervisor scouring pads soon to schedule this procedure. This should be scheduled no sooner than 10/05/24 t allow for her right side to heal. She denies Diabetes, blood thinners, asthma, heart, lung, kidney issues Scribed for Harleen Heller MD by Rush Cruz, medical radiation therapist, on 09/19/24 at 4:15 PM, EST. Coding Level of Care Code Est Pt Level 4 (67143) Diagnoses Bilateral carpal tunnel syndrome G56.03
--- OUTSIDE RECORDS SUMMARY | 2024-09-19 16:31 | XMS_ITS | Data Portability ---
Author Organization JUAN A Dowell s, [address] Address [address] [place] [address] Care Team Providers Care Hose Seamer Name Role Phone [facility] Care Provider Assessment No assessment recorded. Plan of Treatment Reminders Order Date Submit Date Provider Last Modified By Organization Details Last Modified Time Details Appointments None recorded. Lab urinalysis, dipstick 2023 024 [email or web address] [facility] [address], [address] [place], [address], 4 10:58:11 CMP, serum or plasma 2023 024 [place] [facility], [address] [place] [address], [place], [address], 4 06:07:45 Referral emergency medicine referral 2023 024 acardinal 3 [facility] Emergency Department, [address] [place], [address], 4 15:00:03 Procedures cerumen removal (PROC) 2022 023 [email or web address] Not available 3 07:53:33 Surgeries None recorded. Imaging XR, neck, soft tissue - r/o foreign body (chicken bone), air in soft tissue 2023 024 acardinal 3 [facility], [address] [place] [address]., [place], [address], 4 15:00:03 Medication Orders meclizine 25 mg tablet 2022 023 [facility][id number], [address] [place] [address], [address], 3 09:04:06 prednisone 20 mg tablet 2022 023 [email or web address] 31 [facility] #[id number], [address] [place] [address], [address], 4 10:40:52 fexofenadin e-pseudoeph edrine ER 180 mg-240 mg tablet,ext. release 24 hr 2022 023 BALJIT [facility] #[id number], [address] [place] [address], [address], 3 09:41:03 Patient TargetsNo targets recorded. Patient Instructions Encounter Date Encounter Id Patient Instructions Last Modified By Organization Details Last Modified Time 10/14/2022 [id number] earwax blockage: care instructions [email or web address] Not available 10/14/2022 11:30:52 tinnitus: care instructions Not available 10/14/2022 11:37:19 tinnitus information [email or web address] Not available 10/14/2022 11:37:19 Your earwax was completely removed and does not appear to be the cause of your tinnitus. Keep the appointment that you have scheduled for 10/29/22 with your ENT doctor. See printed instructions. Seek Emergency Medical evaluation for any worsening symptoms. Not available 10/14/2022 11:58:14 10/26/2022 [id number] dizziness: care instructions Not available 10/26/2022 09:41:00 tinnitus: care instructions Not available 10/26/2022 09:41:00 11/01/2022 [id number] benign paroxysma l positional vertigo (bppv): care [...] ENT providers Not available 11/01/2022 08:55:56 09/28/2023 [id number] You have been advised to go now to the Emergency Department for further evaluation of a foreign body (?chicken bone) in your throat. [facility] ER has been advised of your impending arrival. Do not eat or drink anything until cleared by ER staff. You evaluation, treatment and final disposition will be determined by ER staff. [email or web address] Not available 09/28/2023 14:53:52 02/01/2024 [id number] frequent urination: care instructions [email or web address] Not available [...] high normal Not Available [facility] ([facility]) [address] [place], [address], 02/02/2024 06:07:45 02/01/20 24 02/02/2024 COMP. METAB OLIC PANEL (14) BUN 11 mg/dL 6-24 normal Not Available [facility] ([facility]) [address] [place], [address], 02/02/2024 06:07:45 02/01/20 24 02/02/2024 COMP. METAB OLIC PANEL (14) creatinine 0.58 mg/dL 0.57-1 .00 normal Not Available [facility] ([facility]) [address] [place], [address], 02/02/2024 06:07:45 02/01/20 24 02/02/2024 COMP. METAB OLIC PANEL (14) eGFR 109 mL/mi n/1.7 3 >59 normal Not Available [facility] ([facility]) [address] [facility], [place], [address], 02/02/2024 06:07:45 02/01/20 24 02/02/2024 COMP. METAB OLIC PANEL (14) BUN/creatini ne ratio 19 9-23 normal Not Available [facility] ([facility]) [address] [facility], [place], [address], 02/02/2024 06:07:45 02/01/20 24 02/02/2024 COMP. METAB OLIC PANEL (14) sodium 142 mmol/ L 134-14 4 normal Not Available [facility] ([facility]) [address] [facility], [place], [address], 02/02/2024 06:07:45 02/01/20 24 02/02/2024 COMP. METAB OLIC PANEL (14) potassium 4.2 mmol/ L 3.5-5. 2 normal Not Available [facility] ([facility]) [address] [facility], [place], [address], 02/02/2024 06:07:45 02/01/20 24 02/02/2024 COMP. METAB OLIC PANEL (14) chloride 102 mmol/ L 96-106 normal Not Available [facility] ([facility]) [address] [facility], [place], [address], 02/02/2024 06:07:45 02/01/20 24 02/02/2024 COMP. METAB OLIC PANEL (14) carbon dioxide, total 26 mmol/ L 20-29 normal Not Available [facility] ([facility]) [address] [facility], [place], [address], 02/02/2024 06:07:45 02/01/20 24 02/02/2024 COMP. METAB OLIC PANEL (14) calcium 9.9 mg/dL 8.7-10 .2 normal Not Available [facility] ([facility]) [address] [facility] [place], [address], 02/02/2024 06:07:45 02/01/20 24 02/02/2024 COMP. METAB OLIC PANEL (14) protein, total 7.2 g/dL 6.0-8. 5 normal Not Available [facility] ([facility]) [address] [facility] [place], [address], 02/02/2024 06:07:45 02/01/20 24 02/02/2024 COMP. METAB OLIC PANEL (14) albumin 4.8 g/dL 3.8-4. 9 normal Not Available [facility] ([facility]) [address] [facility] [place], [address], 02/02/2024 06:07:45 02/01/20 24 02/02/2024 COMP. METAB OLIC PANEL (14) globulin, total 2.4 g/dL 1.5-4. 5 Not Available [facility] ([facility]) [address] [place], [address], 02/02/2024 06:07:45 02/01/20 24 02/02/2024 COMP. METAB OLIC PANEL (14) bilirubin, total 0.8 mg/dL 0.0-1. 2 normal Not Available [facility] ([facility]) [address] [place], [address], 02/02/2024 06:07:45 02/01/20 24 02/02/2024 COMP. METAB OLIC PANEL (14) alkaline phosphatase 98 IU/L 44-121 normal Not Available [facility] ([facility]) [address] [facility] [place], [address], 02/02/2024 06:07:45 02/01/20 24 02/02/2024 COMP. METAB OLIC PANEL (14) AST (SGOT) 20 IU/L 0-40 normal Not Available [facility] ([facility]) [address] [facility], [place], [address], 02/02/2024 06:07:45 02/01/20 24 02/02/2024 COMP. METAB OLIC PANEL (14) ALT (SGPT) 16 IU/L 0-32 normal Not Available [facility] ([facility]) [address] [facility], [place], [address], 02/02/2024 06:07:45 02/01/20 24 02/01/2024 urina lysis , dipst ick Unknown Analyte Normal = light yellow Not Available [address] [place], [address], 02/01/2024 10:41:35 02/01/20 24 02/01/2024 urina lysis , dipst ick Unknown Analyte Normal = clear Not Available [address] [place], [address], 02/01/2024 10:41:35 02/01/20 24 02/01/2024 urina lysis , dipst ick Unknown Analyte Normal = negati ve Not Available [address] [place], [address], 02/01/2024 10:41:35 02/01/20 24 02/01/2024 urina lysis , dipst ick Unknown Analyte Negati ve Not Available [address] [place], [address], 02/01/2024 10:41:35 02/01/20 24 02/01/2024 urina lysis , dipst ick Unknown Analyte Normal = Negati ve Not Available [address] [place], [address], 02/01/2024 10:41:35 02/01/20 24 02/01/2024 urina lysis , dipst ick Unknown Analyte Negati ve Not Available [address] [place], [address], 02/01/2024 10:41:35 02/01/20 24 02/01/2024 urina lysis , dipst ick Unknown Analyte Normal = Negati ve Not Available [address] [place], [address], 02/01/2024 10:41:35 02/01/20 24 02/01/2024 urina lysis , dipst ick Unknown Analyte Negati ve Not Available [address] [place], [address], 02/01/2024 10:41:35 02/01/20 24 02/01/2024 urina lysis , dipst ick Unknown Analyte Normal = 1.010, 1.015, 1.020 Not Available [address] [place], [address], 02/01/2024 10:41:35 02/01/20 24 02/01/2024 urina lysis , dipst ick Unknown Analyte Normal = Negati ve Not Available [address] [place], [address], 02/01/2024 10:41:35 02/01/20 24 02/01/2024 urina lysis , dipst ick Unknown Analyte Trace- lysed Not Available [address] [place], [address], 02/01/2024 10:41:35 02/01/20 24 02/01/2024 urina lysis , dipst ick Unknown Analyte Normal = 6.5, 7.0, 7.5, 8.0 Not Available [address] [place], [address], 02/01/2024 10:41:35 02/01/2002/01/2024 urina lysis , dipst ick Unknown Analyte Normal = Negati ve Not Available [address] [place], [address], 02/01/2024 10:41:35 02/01/20 24 02/01/2024 urina lysis , dipst ick Unknown Analyte Negati ve Not Available [address] [place], [address], 02/01/2024 10:41:35 02/01/20 24 02/01/2024 urina lysis , dipst ick Unknown Analyte Normal = 0.2, 1.0 Not Available [address] [place], [address], 02/01/2024 10:41:35 02/01/20 24 02/01/2024 urina lysis , dipst ick Unknown Analyte Normal = Negati ve Not Available [address] [place], [address], 02/01/2024 10:41:35 02/01/2002/01/2024 urina lysis , dipst ick Unknown Analyte Negati ve Not Available [address] [place], [address], 02/01/2024 10:41:35 02/01/2002/01/2024 urina lysis , dipst ick Unknown Analyte Normal = Negati ve Not Available [address] [place], [address], 02/01/2024 10:41:35 02/01/20 24 02/01/2024 urina lysis , dipst ick Unknown Analyte Negati ve Not Available [address] [place], [address], 02/01/2024 10:41:35 02/01/20 24 02/01/2024 urina lysis , dipst ick Unknown Analyte Yellow Not Available [address] [place] [address] [address] [place], [address], 02/01/2024 10:41:35 02/01/20 24 02/01/2024 urina lysis , dipst ick Unknown Analyte Clear Not Available [address] [place] [address] [address] [place], [address], 02/01/2024 10:41:35 02/01/20 24 02/01/2024 urina lysis , dipst ick Unknown Analyte 1.015 Not Available [address] [place] [address] [address] [place], [address], 02/01/2024 10:41:35 02/01/20 24 02/01/2024 urina lysis , dipst ick Unknown Analyte 7.0 Not Available [address] [place] [address] [address] [place], [address], 02/01/2024 10:41:35 02/01/20 24 02/01/2024 urina lysis , dipst ick Unknown Analyte 0.2 E.U./d L Not Available [address] [place], [address], 02/01/2024 10:41:35 09/28/19 24 09/28/2023 XR, neck, soft tissu e No observ ation record ed. [email or web address] [facility] [address] [facility] [place], [address], 09/28/2023 15:11:14 Result Notes None recorded. Problems Name Problem SNOMED Code Status Onset Date Resolution Date Notes Provider Name and Address Organization Details Recorded Time Chronic back pain 979165931 Active 2016 JUAN A Adams [facility] 3 10:50:30 Chronic neck pain 8467346333500 Active 1982 40x years JUAN A Adams [facility] 3 10:50:51 Problem Notes None recorded. Procedures Surgical History Date Name Laterality Status Provider Name and Address Organization Details Recorded Time Cerumen Removal by Irrigation completed ALANIS Hsieh [facility] 10/14/2022 11:48:01 Imaging Results Imaging Date Name Status LastModified by Organ ation Details LastModified Time 09/28/2023 XR, neck, soft tissue completed [email or web address] [facility] [address] [facility] [place], [address], 09/28/2023 15:11:14 Procedure Notes None recorded. Medical [...] /min 98 [degF] 165.1 cm 20.3 kg/m2 22941.2 7 g 114 mm[Hg] 73 mm[Hg] LIYA FREITAS [place] - [facility] 3 10:52:21 Date Recorded Body height Body mass index (BMI) Body weight Pain severity - 0-10 verbal numeric rating [Score] - Reported Oxygen saturation Oxygen saturation in Arterial blood by Pulse oximetry Heart rate Respiratory rate Body temperature Systolic blood pressure Diastolic blood pressure Provider Name and Address Organization Details Last Updated DateTime 3 165.1 cm 20 kg/m2 15603.0 8 g 0 100 % 100 % [...] Updated DateTime 3 165.1 cm 20 kg/m2 39156.0 8 g 0 100 % 100 % 71 /min 18 /min 97.7 [degF] 128 mm[Hg] 87 mm[Hg] JEREMI ALDANA [facility] 3 08:26:38 Date Recorded Body height Body mass index (BMI) Body weight Pain severity - 0-10 verbal numeric rating [Score] - Reported Oxygen saturation Oxygen saturation in Arterial blood by Pulse oximetry Heart rate Respiratory rate Body temperature Systolic blood pressure Diastolic blood pressure Provider Name and Address Organization Details Last Updated DateTime 4 165.1 cm 20.5 kg/m2 75374.8 6 g 5 97 % 97 % 76 /min 18 /min 97.9 [degF] 132 mm[Hg] 84 mm[Hg] Lyn Noel [facility] 4 13:55:17 Date Recorded Body height Body mass index (BMI) Body weight Oxygen saturation Oxygen saturation in Arterial blood by Pulse oximetry Heart rate Respiratory rate Body temperature Systolic blood pressure Diastolic blood pressure Provider Name and Address Organization Details Last Updated DateTime 4 165.1 cm 20.5 kg/m2 49182.8 6 g 100 % 100 % 69 /min 18 /min 98.7 [degF] 134 mm[Hg] 88 mm[Hg] Lyn Noel [facility] 4 10:41:17 Social History Question Answer Notes LastModified by Organizat ion Details LastModified Time Tobacco Smoking Status Never Smoker JUAN A Adams - [facility] 10/14/2022 10:51:04 What Is Your Level Of Alcohol Consumption? None Information not available 10/14/2022 Have You Had A Flu Shot This Season? Yes [email or web address] Information not available 09/28/2023 What Was The Date Of Your Most Recent Tobacco Screening? 02/01/2024 [email or web address] Information not available 02/01/2024 Do You Use Any Illicit Or Recreational Drugs? No Information not available 10/14/2022 Have You Recently Traveled Abroad? No [email or web address] Information not available 09/28/2023 Do You Or [...] SNOMED-CT Code Diagnosis ICD10 Code Diagnosis Note [id number] Mitzy Ellsworth [facility] [address] [place] [address] 10/14/2022 10:35:44 10/14/2022 11:59:32 Impacted cerumen in left ear 3116163563 655045 H61.22 Tinnitus of left ear 109 8579552 106 H93.12 [id number] Moises Tran MD [address] [facility] [place] [address] 10/26/2022 08:16:59 10/26/2022 09:42:20 Middle ear effusion 7755578398 H74.8X9 Chronic middle ear effusion with Tinnitus.W ill need t make a ENT follow up.Please follow up with PCP or Urgent Care in 3-5 days if no improvemen t or if any new symptoms occur that are concerning . Benign par oxysmal positional vertigo 313660199 H81.13 Dizziness triggered by the middle ear fluid.Plea se make a follow up with ENT as soon as you can [id number] JUAN A Melvin [address] [facility] [address] [place] [address] 11/01/2022 08:10:33 11/01/2022 09:07:36 Benign paroxysmal positional vertigo 278081624 H81.11 [id number] [place]sworth [place] [address] [facility] [address] [place] [address] 09/28/2023 12:53:05 09/28/2023 15:00:02 Pain in throat 728126590 R07.0 Foreign cornell dy in pharynx 87958934 T17.208A Hypopharyn geal foreign body. [id number] JUAN A Henderson [address] [facility] [address] [facility] [place] [address] 02/01/2024 10:31:22 02/01/2024 11:10:50 Increased frequency of urination 877051928 R35.0 You were seen today for increased urinary frequency and some bubbles in your urine. Your urine dip in clinic looks good. Since you are having symptoms, we will test for diabetes and make sure your kidneys are functionin g properly Please go to the ED if you start seeing blood in your urine or are haqving severe pain Paresthesia of finger 76 9392796 R20.2 You were seen today for numb [...] numbness and weakness Thank you for using [facility] today, please feel free to contact our [...] Oliva Member ID Guarantor Name 10/14/2022 1 [facility] (MEDICAID REPLACEMENT - HMO) EDINSON Colby Guerra [id number] Cottonorma De La Fuente Guerra 10/26/2022 1 [facility] (MEDICAID REPLACEMENT - HMO) EDINSON Colby Guerra [id number] Yadiel De La Fuente Guerra 11/01/2022 1 [facility] (MEDICAID REPLACEMENT - HMO) EDINSON Colby Guerra [id number] Cotto Leisa Guerra 09/28/2023 1 [facility] (MEDICAID REPLACEMENT - HMO) EDINSON Colby Guerra [id number] Cotto Leisa Guerra 02/01/2024 1 [facility] (MEDICAID REPLACEMENT - HMO) EDINSON Colby Guerra [id number] Cottonorma De La Fuente Guerra Notes Date [...] Mitzy Ellsworth MD [address] [place], [address], [facility] 10/14/2022 12:11:37 10/27/19 23 text/htm l Dizziness [...] Moises Tran MD [address] [place], [address], [facility] 10/26/2022 09:53:06 11/02/19 23 text/htm l [...] JUAN A Soria [address] [place], [address], [employer] 11/01/2022 09:04:18 09/28/19 24 text/htm [...] Mitzy Ellsworth MD [address] [place], [address], [place] [employer] [facility] 10/05/2023 11:30:52 02/01/20 24 text/htm l 53 y/o female here with about a month of increasing urinary frequency, with bubbles in the toilet. Also with tingling to fingertips on both hands, for the past year, on and off at first, now constant JUAN A Henderson [address] [place], [address], [place] - [facility] 02/01/2024 11:10:04 OBGyn Episode No OBEpisode recorded.
--- OUTSIDE RECORDS SUMMARY | 2024-09-19 16:32 | XMS_ITS | Data Portability ---
Author Organization [place] - [facility], Allergy Address [address] [address] [place] [address] Assessment Encounter Date Assessment Date Assessment LastModified [...] consider cognitive behavioral therapy; contact information for [facility] was provided. Follow up in 1-2 years [...] Organization Details Recorded Time Dizziness and giddiness 298969993 Active 2022 Dizziness and giddiness ; Note: Date Diagnosed : 11/03/2022 12:30 PM (R42) Not Available [facility] 4 02:48:18 Bilateral tinnitus 07201891701 02 Active 2022 Tinnitus, bilateral ; Note: Date Diagnosed : 10/21/2022 2:30 PM (H93.13) Not Available [facility] 4 02:48:16 Bilateral temporoma ndibular joint pain 42670394276 208627 Active 2022 Arthralgi a of bilateral temporoma ndibular joint; Note: Date Diagnosed : 10/21/2022 3:02 PM (M26.623) Not Available [facility] 4 02:48:19 Feeling of lump in throat 654126984 Active 2023 CLEVELAND CRUZ PA-C [address] [place] [address],[place] [address], [facility] JONELLE scott, [address] , JONELLE - [facility] 4 13:39:50 Sensorine ural hearing loss of bilateral ears 495615280 Active 2023 Bibiana vale [place] - [facility] 4 15:14:03 Problem Notes None recorded. Procedures Surgical History Date Name Laterality Status Provider Name and Address Organization Details Recorded Time 05/12/20 24 Air & Speech Audio with Tymps - 11302, 04591 & 77022 completed Bibiana Woodson [place] - [facility] 05/12/2024 15:13:56 09/29/19 24 Fiberoptic Laryngoscopy (Comprehensive) completed CLEVELAND CRUZ PA-C [address] [place] [address],[address], [address], [place] - [facility] 09/29/2023 15:03:41 Imaging Results Imaging Date Name Status LastModified by Organiz ation Details LastModified Time 10/21/2022 imaging/diagno stic result [...] mg tablet 11/03 completed Medicati on ID: [id number] B rand Name: asher christian Sen d [...] Updated DateTime 09/29/2023 165.1 cm 20.8 kg/m2 13845.05 g Skylar Del Rosario MA [facility] 09/29/2023 13:41:09 Date Recorded Body height Body mass index (BMI) Body weight Provider Name and Address Organization Details Last Updated DateTime 05/12/2024 165.1 cm 20.8 kg/m2 43769.05 g Madison Milton [place] [facility] 05/12/2024 14:47:44 Social History None recorded. Functional [...] Note 361 CLEVELAND CRUZ PA-C [facility] [address] [address] 09/29/2023 13:33:19 09/29/2023 14:01:35 Feeling of lump in throat 393148118 R09.89 Neck radiograph reviewed by Dr. Blackmon. Calcificat ion of the cricoid cartilage without evidence of foreign body or trauma. Reassuranc e provided that the cryptic area in the left palatine tonsil is not a result of trauma and does not require care. Patient to follow up as needed. [id number] CLEVELAND CRUZ PA-C [facility] [address] [address] 05/12/2024 14:46:12 05/12/2024 15:35:31 Sensorineural hearing loss of bilateral ears 425033792 H90.3 Audiologic al evaluation results: Right ear: [...] not maintain a hermetic seal}} Bilateral tinnitus 34192 30087 102 H93.13 Health Concerns Section Related Observation LastModified by Organization Detai ls LastModified Time None Recorded Concern Status LastModified by Organization Details LastModified Time None Recorded Advance Directives Directive None Recorded Payers Encounter Date Sequence Insurance Name Policy Number Policy Oliva Covered Member ID Oliva Member ID Guarantor Name 09/29/2023 1 [facility] (MEDICAID REPLACEMENT - HMO) EDINSON Guerra [id number] Yadiel Guerra 05/12/2024 1 [facility] (MEDICAID REPLACEMENT - HMO) EDINSON Guerra [id number] Yadiel Guerra Notes Date Note Type Note [...] represent foreign body. Patient was directed to [facility] ED where the image was reviewed and thought to represent a soft tissue density. However, patient was referred here for flexible fiberoptic laryngoscopy. Patient reports she has been eating and drinking well. No dysphagia, odynophagia, dyspnea, hemoptysis, sore throat, voice change, fever. CLEVELAND CRUZ PA-C [address] [facility],[address], [address], [facility] - [facility] 09/29/2023 15:10:08 05/12/2024 text/html 51-year-old shabbir mccarthy [...] of emotional stress. DANITA DAY MD [address] [facility],[address], [address], [place] - [facility] 05/12/2024 16:59:53 OBGyn Episode No OBEpisode recorded.
--- OUTSIDE RECORDS SUMMARY | 2024-09-19 16:32 | XMS_ITS ---
Author Name CRISP Organization Unknown Encounters Encounter Type Encounter Reason Primary Diagnosis Location Date Ambulatory [facility] 02/25/2024 Care Team Organization Name Specialty Phone Email Start Date End Da te [facility] 2024
--- OUTSIDE RECORDS SUMMARY | 2024-09-19 16:32 | XMS_ITS | Clinical Summary ---
Author Organization [facility] Address [address] [place] [address] Care Team Providers Care Librarian Special Library Name Role Phone Leslie Vera MD Primary Care Provider [phone] Allergies No known active allergies Medications melatonin [...] PT, yoga, other exercise, Western medicine and Malay medicine when she went back to [place] [...] Encounters Date Type Department Care Team Description 08/30/2024 3:00 PM EDT Office Visit Vascular Surgery - [place] [address] [place] [address] Shu Hutson MD Varicose veins of both lower extremities with pain (Primary Dx) 07/20/2024 11:30 AM EST Office Visit Obstetrics and Gynecology - [place] [address] [place] [address] Kinsey Cotton CNM Encounter for annual physical examination excluding gynecological examination in a patient older than 17 years (Primary Dx) 07/06/2024 2:45 PM EST Ancillary Procedure [facility] [address] [place] [address] Varicose veins of both lower extremities with pain from Last 3 Months Immunizations Name Administration Dates Next Due Hepatitis A Adult (Havrix; V aqta) 19yo and older 10/07/2022 Influenza Quadravalent, MDCK , 0.5ml, preservative free (Flucelvax) 6mo and older 02/07/2022,01/13/2019,02/28/2017 Influenza trivalent, with preservative (Fluzone; Afluria) 6mo and older 02/23/2023,03/19/2020,03/22/2018,2014,03/04/2011 Influenza, Unspecified 03/22/2018 DaWanda SARS-CoV-2 COVID-19, mRNA, LNP-S, preservative free 07/06/2020 [...] Sign Reading Time Taken Comments Blood Pressure 110/70 08/30/2024 2:49 PM EDT Pulse 72 08/30/2024 2:49 PM EDT Temperature - - Respiratory Rate 16 08/30/2024 2:49 PM EDT Oxygen Saturation - - Inhaled Oxygen Concentration - - Weight 57.2 kg (126 lb) 08/30/2024 2:49 PM EDT Height 165.1 cm (5' 5 ) 08/30/2024 2:49 PM EDT Body Mass Index 20.97 08/30/2024 2:49 PM EDT Plan of Treatment Upcoming Encounters Date Type Department Care Team (Late st Contact Info) Description 09/21/2024 9:45 AM EDT Office Visit Adult Medicine [place] - [address] [phone] Leslie Vera MD [address] [place] [address] 01/31/2025 10:00 AM EDT Appointment Radiology Department - [address] [phone] 04/27/2025 3:00 PM EST Office Visit Adult Medicine [facility] [place] [address] [place], [place] [phone] Leslie Vera MD [address] [facility] [place] 08/30/2025 3:30 PM EDT Office Visit Vascular Surgery - [place] [address] [place] [address] Dalia Estrella PA [address] [place] [address] Health Maintenance Due Date Last Done Comments Hepatitis B Vaccines (1 of 3 - 19+ 3-dose series) 07/17/1990 Pneumococcal Vaccine: 50+ Years (1 of 1 - PCV) 07/17/2021 HIV Screening 03/11/2022 Social Influencers of Health Screening 03/11/2022 COVID-19 Vaccine ( season) 2024 04/20/2021, 07/06/2020, 06/15/2020 Influenza Vaccine (Season Ended) 2025 05/17/2023, 02/23/2023, 02/07/2022, Additional history exists Depression Screening 02/03/2025 02/04/2024 [...] 0.18 cm CV VAS LAB Left [facility] dnenys 0.40 cm CV VAS LAB Right GSK [...] performed with the patient in reverse trendelenburg. Material Handler Floorperson Details A fry scale, color and doppler analysis ultrasound was performed. During the study longitudinal and transverse views were obtained. Pulsed wave doppler was performed. us Dalia VELAZCO CV VASCULAR PROCEDURES Final R esult * Hm Depression Screening (02/04/2024) Depression Screening abstracted us Historical Provider HEALTH [...] in 12 months. BI-RADS: Category 1: Negative [address] [address] [phone] Procedure Note Caitlyn Nunez MD - 03/01/2024 [...] in 12 months. BI-RADS: Category 1: Negative [address] [address] [phone] Svitlana Castillo DO IMG XR PROCEDURES Final Result * Cervical Cancer Screening: HPV (10/29/2022) [facility] Cervical Cancer Screening: HPV abstracted ,negative [facility] Provider HEALTH MAINTENANCE Final Result * Hepatitis C Screening (10/07/2022) [facility] Hepatitis C Screening abstracted [facility] Provider HEALTH MAINTENANCE Final Result * Lipid panel (10/07/2022) [facility] LDL/HDL Ratio 2 0 - 4 Triglycerides 59 0 - 150 mg/dL Cholesterol 178 0 - 200 mg/dL HDL 84 >=40 mg/dL LDL Cholesterol 83 0 - 100 mg/dL Blood Venous blood specimen / Unknown Result [facility] Provider LAB BLOOD ORDERABLES Sherrie l Result * Colonoscopy (03/23/2022) [facility] Colonoscopy abstracted,no interpretation Anatomical Region Laterality Modality Other [facility] Provider HEALTH MAINTENANCE Final Result from Last 3 Months or Most Recently Relevant to Health Maintenance Insurance [facility] Care Teams Librarian Special Library Relationship Specialty Start Date End Date Leslie Vera MD [address] [place] [address] PCP - General 08/10/22
--- OUTSIDE RECORDS SUMMARY | 2024-09-19 16:32 | XMS_ITS | Clinical Summary ---
Author Organization [facility] Address [address] [place] [address] Care Team Providers Care Activities Assistant Name Role Phone Unavailable Primary Care Provider [...]
== END 2024-09-19 17:12 | disposition home or self-care (01) ==
LOC: HO.HOS 15:21
PROVIDERS: PCP Internal Medicine; Visit Provider Orthopaedic Surgery
DX: G56.03 Carpal tunnel syndrome, bilateral upper limbs (principal)
CPT/HCPCS: 99024

== ENCOUNTER → 2024-09-19 15:20 | Outpatient (BNVA) | payer OTHER, SELFPAY | PROVIDERS: PCP Internal Medicine; Visit Provider Orthopaedic Surgery | DX: Z48.811 Encounter for surgical aftercare following surgery on the nervous system (principal); G56.02 Carpal tunnel syndrome, left upper limb; Z98.890 Other specified postprocedural states | CPT/HCPCS: 99212 ==

== ENCOUNTER 2024-10-16 08:00 | Day surgery (SDC) | payer OTHER, SELFPAY ==
--- OUTSIDE RECORDS SUMMARY | 2024-10-03 14:03 | XMS_ITS | Clinical Summary ---
Author Organization [facility] Address [address] [place] [address] Care Team Providers Care Degreaser Name Role Phone Unavailable Primary Care Provider [...]
--- OUTSIDE RECORDS SUMMARY | 2024-10-03 14:03 | XMS_ITS | Data Portability ---
Author Organization [facility], [address] Address [address] [place] [address] Care Team Providers Care Wharfmaster Name Role Phone [facility] Care Provider Assessment No assessment recorded. Plan of Treatment Reminders Order Date Submit Date Provider Last Modified By Organization Details Last Modified Time Details Appointments None recorded. Lab urinalysis, dipstick 2023 024 [email or web address] [facility] [address], [address] [place], [address], 4 10:58:11 CMP, serum or plasma 2023 024 [facility], [address] [place] [address], [place], [address], 4 06:07:45 Referral emergency medicine referral 2023 024 [email or web address] 3 [facility] Emergency Department, [address] [place], [address], 4 15:00:03 Procedures cerumen removal (PROC) 2022 023 [email or web address] Not available 3 07:53:33 Surgeries None recorded. Imaging XR, neck, soft tissue - r/o foreign body (chicken bone), air in soft tissue 2023 024 acardinal 3 [facility], [address] [place] [address]., [place], [address], 4 15:00:03 Medication Orders meclizine 25 mg tablet 2022 023 [facility][id number], [address] [place] [address], [address], 3 09:04:06 prednisone 20 mg tablet 2022 023 [email or web address] 31 [facility] #[id number], [address] [place] [address], [address], 4 10:40:52 fexofenadin e-pseudoeph edrine ER 180 mg-240 mg tablet,ext. release 24 hr 2022 023 BALJIT [facility] #[id number], [address] [place] [address], [address], 3 09:41:03 Patient TargetsNo targets recorded. Patient Instructions Encounter Date Encounter Id Patient Instructions Last Modified By Organization Details Last Modified Time 10/14/2022 [id number] earwax blockage: care instructions [email or web address] Not available 10/14/2022 11:30:52 tinnitus: care instructions Not available 10/14/2022 11:37:19 tinnitus information [email or web address] Not available 10/14/2022 11:37:19 Your earwax was completely removed and does not appear to be the cause of your tinnitus. Keep the appointment that you have scheduled for 10/29/22 with your ENT doctor. See printed instructions. Seek Emergency Medical evaluation for any worsening symptoms. [email or web address] Not available 10/14/2022 11:58:14 10/26/2022 [id number] dizziness: care instructions Not available 10/26/2022 09:41:00 tinnitus: care instructions Not available 10/26/2022 09:41:00 11/01/2022 [id number] benign paroxysma l positional vertigo (bppv): care [...] ENT providers Not available 11/01/2022 08:55:56 09/28/2023 [id number] You have been advised to go now to the Emergency Department for further evaluation of a foreign body (?chicken bone) in your throat. [facility] ER has been advised of your impending arrival. Do not eat or drink anything until cleared by ER staff. You evaluation, treatment and final disposition will be determined by ER staff. [email or web address] Not available 09/28/2023 14:53:52 02/01/2024 [id number] frequent urination: care instructions [email or web address] Not available [...] 70-99 above high normal Not Available [facility] ([facility]) [address] [place], [address], 02/02/2024 06:07:45 02/01/20 24 02/02/2024 COMP. METAB OLIC PANEL (14) BUN 11 mg/dL 6-24 normal Not Available [facility] ([facility]) [address] [place], [address], 02/02/2024 06:07:45 02/01/20 24 02/02/2024 COMP. METAB OLIC PANEL (14) creatinine 0.58 mg/dL 0.57-1 .00 normal Not Available [facility] ([facility]) [address] [place], [address], 02/02/2024 06:07:45 02/01/20 24 02/02/2024 COMP. METAB OLIC PANEL (14) eGFR 109 mL/mi n/1.7 3 >59 normal Not Available [facility] ([facility]) [address] [facility], [place], [address], 02/02/2024 06:07:45 02/01/20 24 02/02/2024 COMP. METAB OLIC PANEL (14) BUN/creatini ne ratio 19 9-23 normal Not Available [facility] ([facility]) [address] [facility], [place], [address], 02/02/2024 06:07:45 02/01/20 24 02/02/2024 COMP. METAB OLIC PANEL (14) sodium 142 mmol/ L 134-14 4 normal Not Available [facility] ([facility]) [address] [facility], [place], [address], 02/02/2024 06:07:45 02/01/20 24 02/02/2024 COMP. METAB OLIC PANEL (14) potassium 4.2 mmol/ L 3.5-5. 2 normal Not Available [facility] ([facility]) [address] [facility], [place], [address], 02/02/2024 06:07:45 02/01/20 24 02/02/2024 COMP. METAB OLIC PANEL (14) chloride 102 mmol/ L 96-106 normal Not Available [facility] ([facility]) [address] [facility], [place], [address], 02/02/2024 06:07:45 02/01/20 24 02/02/2024 COMP. METAB OLIC PANEL (14) carbon dioxide, total 26 mmol/ L 20-29 normal Not Available [facility] ([facility]) [address] [facility], [place], [address], 02/02/2024 06:07:45 02/01/20 24 02/02/2024 COMP. METAB OLIC PANEL (14) calcium 9.9 mg/dL 8.7-10 .2 normal Not Available [facility] ([facility]) [address] [facility] [place], [address], 02/02/2024 06:07:45 02/01/20 24 02/02/2024 COMP. METAB OLIC PANEL (14) protein, total 7.2 g/dL 6.0-8. 5 normal Not Available [facility] ([facility]) [address] [facility] [place], [address], 02/02/2024 06:07:45 02/01/20 24 02/02/2024 COMP. METAB OLIC PANEL (14) albumin 4.8 g/dL 3.8-4. 9 normal Not Available [facility] ([facility]) [address] [facility] [place], [address], 02/02/2024 06:07:45 02/01/20 24 02/02/2024 COMP. METAB OLIC PANEL (14) globulin, total 2.4 g/dL 1.5-4. 5 Not Available [facility] ([facility]) [address] [place], [address], 02/02/2024 06:07:45 02/01/20 24 02/02/2024 COMP. METAB OLIC PANEL (14) bilirubin, total 0.8 mg/dL 0.0-1. 2 normal Not Available [facility] ([facility]) [address] [place], [address], 02/02/2024 06:07:45 02/01/20 24 02/02/2024 COMP. METAB OLIC PANEL (14) alkaline phosphatase 98 IU/L 44-121 normal Not Available [facility]) [address] [facility] [place], [address], 02/02/2024 06:07:45 02/01/20 24 02/02/2024 COMP. METAB OLIC PANEL (14) AST (SGOT) 20 IU/L 0-40 normal Not Available [facility] ([facility]) [address] [facility], [place], [address], 02/02/2024 06:07:45 02/01/20 24 02/02/2024 COMP. METAB OLIC PANEL (14) ALT (SGPT) 16 IU/L 0-32 normal Not Available [facility] ([facility]) [address] [facility], [place], [place], [address], 02/02/2024 06:07:45 02/01/20 24 02/01/2024 urina lysis , dipst ick Unknown Analyte Normal = light yellow Not Available [address] [place], [address], 02/01/2024 10:41:35 02/01/20 24 02/01/2024 urina lysis , dipst ick Unknown Analyte Normal = clear Not Available [address] [place], [address], 02/01/2024 10:41:35 02/01/20 24 02/01/2024 urina lysis , dipst ick Unknown Analyte Normal = negati ve Not Available [address] [place], [address], 02/01/2024 10:41:35 02/01/20 24 02/01/2024 urina lysis , dipst ick Unknown Analyte Negati ve Not Available [address] [place], [address], 02/01/2024 10:41:35 02/01/20 24 02/01/2024 urina lysis , dipst ick Unknown Analyte Normal = Negati ve Not Available [address] [place], [address], 02/01/2024 10:41:35 02/01/20 24 02/01/2024 urina lysis , dipst ick Unknown Analyte Negati ve Not Available [address] [place], [address], 02/01/2024 10:41:35 02/01/20 24 02/01/2024 urina lysis , dipst ick Unknown Analyte Normal = Negati ve Not Available [address] [place], [address], 02/01/2024 10:41:35 02/01/20 24 02/01/2024 urina lysis , dipst ick Unknown Analyte Negati ve Not Available [address] [place], [address], 02/01/2024 10:41:35 02/01/20 24 02/01/2024 urina lysis , dipst ick Unknown Analyte Normal = 1.010, 1.015, 1.020 Not Available [address] [place], [address], 02/01/2024 10:41:35 02/01/20 24 02/01/2024 urina lysis , dipst ick Unknown Analyte Normal = Negati ve Not Available [address] [place], [address], 02/01/2024 10:41:35 02/01/20 24 02/01/2024 urina lysis , dipst ick Unknown Analyte Trace- lysed Not Available [address] [place], [address], 02/01/2024 10:41:35 02/01/20 24 02/01/2024 urina lysis , dipst ick Unknown Analyte Normal = 6.5, 7.0, 7.5, 8.0 Not Available [address] [place], [address], 02/01/2024 10:41:35 02/01/2002/01/2024 urina lysis , dipst ick Unknown Analyte Normal = Negati ve Not Available [address] [place], [address], 02/01/2024 10:41:35 02/01/20 24 02/01/2024 urina lysis , dipst ick Unknown Analyte Negati ve Not Available [address] [place], [address], 02/01/2024 10:41:35 02/01/20 24 02/01/2024 urina lysis , dipst ick Unknown Analyte Normal = 0.2, 1.0 Not Available [address] [place], [address], 02/01/2024 10:41:35 02/01/20 24 02/01/2024 urina lysis , dipst ick Unknown Analyte Normal = Negati ve Not Available [address] [place], [address], 02/01/2024 10:41:35 02/01/2002/01/2024 urina lysis , dipst ick Unknown Analyte Negati ve Not Available [address] [place], [address], 02/01/2024 10:41:35 02/01/2002/01/2024 urina lysis , dipst ick Unknown Analyte Normal = Negati ve Not Available [address] [place], [address], 02/01/2024 10:41:35 02/01/20 24 02/01/2024 urina lysis , dipst ick Unknown Analyte Negati ve Not Available [address] [place], [address], 02/01/2024 10:41:35 02/01/20 24 02/01/2024 urina lysis , dipst ick Unknown Analyte Yellow Not Available [id number] [place] [address] [address] [place], [address], 02/01/2024 10:41:35 02/01/20 24 02/01/2024 urina lysis , dipst ick Unknown Analyte Clear Not Available [address] [place] [address] [address] [place], [address], 02/01/2024 10:41:35 02/01/20 24 02/01/2024 urina lysis , dipst ick Unknown Analyte 1.015 Not Available [address] [place] [address] [address] [place], [address], 02/01/2024 10:41:35 02/01/20 24 02/01/2024 urina lysis , dipst ick Unknown Analyte 7.0 Not Available [address] [place] [address] [address] [place], [address], 02/01/2024 10:41:35 02/01/20 24 02/01/2024 urina lysis , dipst ick Unknown Analyte 0.2 E.U./d L Not Available [address] [place], [address], 02/01/2024 10:41:35 09/28/19 24 09/28/2023 XR, neck, soft tissu e No observ ation record ed. [email or web address] [facility] [address] [facility] [place], [address], 09/28/2023 15:11:14 Result Notes None recorded. Problems Name Problem SNOMED Code Status Onset Date Resolution Date Notes Provider Name and Address Organization Details Recorded Time Chronic back pain 547578130 Active 2016 JUAN A Adams [facility] 3 10:50:30 Chronic neck pain 8386571929991 Active 1982 40x years JUAN A Adams [facility] 3 10:50:51 Problem Notes None recorded. Procedures Surgical History Date Name Laterality Status Provider Name and Address Organization Details Recorded Time Cerumen Removal by Irrigation completed ALANIS Hsieh [facility] 10/14/2022 11:48:01 Imaging Results Imaging Date Name Status LastModified by Organ ation Details LastModified Time 09/28/2023 XR, neck, soft tissue completed [email or web address] [facility] [address] [facility] [place], [address], 09/28/2023 15:11:14 Procedure Notes None recorded. Medical [...] /min 98 [degF] 165.1 cm 20.3 kg/m2 70893.2 7 g 114 mm[Hg] 73 mm[Hg] LIYA FREITAS [place] - [facility] 3 10:52:21 Date Recorded Body height Body mass index (BMI) Body weight Oxygen saturation Oxygen saturation in Arterial blood by Pulse oximetry Heart rate Respiratory rate Body temperature Systolic blood pressure Diastolic blood pressure Provider Name and Address Organization Details Last Updated DateTime 3 165.1 cm 20 kg/m2 05566.0 8 g 100 % 100 % 77 /min 18 /min 97.9 [degF] 120 mm[Hg] 81 mm[Hg] JEREMI ALDANA [place] - [facility] 3 09:10:28 Date Recorded Body height Body mass index (BMI) Body weight Oxygen saturation Oxygen saturation in Arterial blood by Pulse oximetry Heart rate Respiratory rate Body temperature Systolic blood pressure Diastolic blood pressure Provider Name and Address Organization Details Last Updated DateTime 3 165.1 cm 20 kg/m2 28611.0 8 g 100 % 100 % 71 /min 18 /min 97.7 [degF] 128 mm[Hg] 87 mm[Hg] JEREMI ALDANA [place] [facility] 3 08:26:38 Date Recorded Body height Body mass index (BMI) Body weight Oxygen saturation Oxygen saturation in Arterial blood by Pulse oximetry Heart rate Respiratory rate Body temperature Systolic blood pressure Diastolic blood pressure Provider Name and Address Organization Details Last Updated DateTime 4 165.1 cm 20.5 kg/m2 50711.8 6 g 97 % 97 % 76 /min 18 /min 97.9 [degF] 132 mm[Hg] 84 mm[Hg] Lyn Noel [place] [facility] 4 13:55:17 Date Recorded Body height Body mass index (BMI) Body weight Oxygen saturation Oxygen saturation in Arterial blood by Pulse oximetry Heart rate Respiratory rate Body temperature Systolic blood pressure Diastolic blood pressure Provider Name and Address Organization Details Last Updated DateTime 4 165.1 cm 20.5 kg/m2 51433.8 6 g 100 % 100 % 69 /min 18 /min 98.7 [degF] 134 mm[Hg] 88 mm[Hg] Lyn Noel [facility] 4 10:41:17 Social History Question Answer Notes LastModified by [employer] ion Details LastModified Time Tobacco Smoking Status Never Smoker LIYA vale [place] - [facility] 10/14/2022 10:51:04 Have You Had A Flu Shot This Season? Yes [email or web address] Information not available 09/28/2023 What Was The Date Of Your Most Recent Tobacco Screening? 02/01/2024 [email or web address] Information not available 02/01/2024 Have You Recently Traveled Abroad? No [email or web address] Information not available 09/28/2023 Sex: Unknown Functional Status Question Answer Note LastModified by Organizat ion Details LastModified Time Do you use any illicit or recreational drugs? No Information not available 10/14/2022 Do you or have you ever used any other forms of tobacco or nicotine? No Information not available 10/14/2022 What is your level of alcohol consumption? None Information not available 10/14/2022 Mental Status None recorded. Family History Relationship [...] SNOMED-CT Code Diagnosis ICD10 Code Diagnosis Note [id number] Mitzy Ellsworth MD [address] [address] [place] [address] 10/14/2022 10:35:44 10/14/2022 11:59:32 Impacted cerumen in left ear 8586704700 002019 H61.22 Tinnitus of left ear 781 7098832 106 H93.12 [id number] Moises Tran [place] [address] [facility] [address] [place] [address] 10/26/2022 08:16:59 10/26/2022 09:42:20 Middle ear effusion 4404382303 H74.8X9 Chronic middle ear effusion with Tinnitus.W ill need t make a ENT follow up.Please follow up with PCP or Urgent Care in 3-5 days if no improvemen t or if any new symptoms occur that are concerning . Benign par oxysmal positional vertigo 362376129 H81.13 Dizziness triggered by the middle ear fluid.Plea se make a follow up with ENT as soon as you can [id number] JUAN A Melvin [address] [facility] [address] [facility] [place] [address] 11/01/2022 08:10:33 11/01/2022 09:07:36 Benign paroxysmal positional vertigo 443211011 H81.11 [id number] Mitzy Ellsworth [facility] [address] [facility] [address] [facility] [place] [address] 09/28/2023 12:53:05 09/28/2023 15:00:02 Pain in throat 300294310 R07.0 Foreign cornell dy in pharynx 30925933 T17.208A Hypopharyn geal foreign body. [id number] JUAN A Henderson [address] [facility] [address] [facility] [place] [address] 02/01/2024 10:31:22 02/01/2024 11:10:50 Increased frequency of urination 904313765 R35.0 You were seen today for increased urinary frequency and some bubbles in your urine. Your urine dip in clinic looks good. Since you are having symptoms, we will test for diabetes and make sure your kidneys are functionin g properly Please go to the ED if you start seeing blood in your urine or are haqving severe pain Paresthesia of finger 76 3236841 R20.2 You were seen today for numb [...] numbness and weakness Thank you for using [facility] today, please feel free to contact our office if you have any questions or concerns. Health Concerns Section Related Observation LastModified by Organization Detai ls LastModified Time None Recorded Concern Status LastModified by Organization Details LastModified Time None Recorded Advance Directives Directive None Recorded Payers Insurance Date Sequence Insurance Name Policy Number Policy Oliva Covered Member ID Oliva Member ID Guarantor Name 02/01/2024 1 [facility] (MEDICAID REPLACEMENT - HMO) EDINSON Guerra [id number] Yadiel De La Fuente Guerra Notes Date Note [...] ENT on 10/29/2022. Mitzy Ellsworth MD [address] [facility] [place], [address], [place] - [facility] 10/14/2022 12:11:37 10/27/19 text/htm l Dizziness UCReported bypatient.Quality:cannot identify Context:non-smoker [...] Moises Tran MD [address] [place], [address], [facility] 10/26/2022 09:53:06 11/02/19 23 text/htm l Dizziness [...] JUAN A Soria [address] [place], [address], [facility] 11/01/2022 09:04:18 09/28/19 24 text/htm l Sore [...] Mitzy Ellsworth MD [address] [place], [address], [facility] 10/05/2023 11:30:52 02/01/20 24 text/htm l 53 y/o female here with about a month of increasing urinary frequency, with bubbles in the toilet. Also with tingling to fingertips on both hands, for the past year, on and off at first, now constant JUAN A [place] [address] [place], [address], [place] [facility] 02/01/2024 11:10:04 OBGyn Episode No OBEpisode recorded.
--- OUTSIDE RECORDS SUMMARY | 2024-10-03 14:03 | XMS_ITS | Encounter Summary ---
Author Organization [facility] Address [address] [place] [address] Care Team Providers Care [employer] Instructor Name Role Phone Leslie Vera MD Primary Care Provider [phone] Reason for Visit * Reason Comments Second Opinion Low back pain * Consultation (Urgent) - Authorized Specialty Diagnoses / Procedures Referred By Contac t Referred To Contact Neurosurgery Diagnoses Osteoarthritis of lumbar spine, unspecified spinal osteoarthritis complication status Chronic low back pain, unspecified back pain laterality, unspecified whether sciatica present Chronic upper back pain Leslie Vera MD [address] [place] [id number] Phone: tel: fax: Neurosurgery [address] [address] Phone: tel: fax: Referral ID Status Reason Start Date Expiration Date Visits Requested Visits Authorized [id number] Authorized Specialty Services Required 09/21/2024 09/21/2025 1 1 Encounter Details Date Type Department Care Team (Late st Contact Info) Description 10/03/2024 10:45 AM EDT Consult Neurosurgery [address] [phone] Henry Morel MD [facility] [address] Osteoarthritis of lumbar spine, unspecified spinal osteoarthritis complication status; Chronic low back pain, unspecified back pain laterality, unspecified whether sciatica present; Chronic upper back pain Social History Tobacco Use Types Packs/Day [...] Sign Reading Time Taken Comments Blood Pressure - - Pulse - - Temperature - - Respiratory Rate - - Oxygen Saturation - - Inhaled Oxygen Concentration - - Weight 55.3 kg (122 lb) 10/03/2024 11:03 AM EDT Height 165.1 cm (5' 5 ) 10/03/2024 11:03 AM EDT Body Mass Index 20.3 10/03/2024 11:03 AM EDT documented in this encounter Plan of Treatment Upcoming Encounters Date Type Department Care Team (Late st Contact Info) Description 01/31/2025 10:00 AM EDT Appointment Radiology Department - [address] [address] 04/27/2025 3:00 PM EST Office Visit Adult Medicine [address] [phone] Leslie Vera MD [address] [place] [address] 08/30/2025 3:30 PM EDT Office Visit Vascular Surgery - [place] [address] [place] [address] Dalia Estrella PA [address] [place] [address] documented as of this encounter Visit Diagnoses Diagnosis Osteoarthritis of lumbar spine, unspecified spinal osteoarthritis complication status Chronic low back pain, unspecified back pain laterality, unspecified whether sciatica present Chronic upper back pain Encounter for screening mammogram for breast cancer documented in this encounter Orders Outpatient Referral Count Last Ordered Date Fir st Ordered Date AMB REFERRAL TO NEUROSURGERY 1 10/03/2024 documented in this encounter Care Teams [employer] Instructor Relationship Specialty Start Date End Date Leslie Vera MD [address] [place] [address] PCP - General 08/10/22 documented as of this encounter
--- OUTSIDE RECORDS SUMMARY | 2024-10-03 14:03 | XMS_ITS | Clinical Summary ---
Author Organization [facility] [place] Address [address] [place] [address] Care Team Providers Care Hand Clerical Verifier Name Role Phone Leslie Vera MD Primary Care Provider [phone] Allergies No known active allergies Medications melatonin 5 mg capsule Take 1 Capsule by mouth at bedtime. 4 Active omeprazole (PriLOSEC) [address] capsule Take 1 capsule (20 mg total) by mouth 1 (one) time each day. 4 Active hydrOXYzine HCL (ATARAX) 25 mg tablet Take 1 Tablet by mouth at bedtime. 4 Active predniSONE (DELTASONE) 20 mg tablet Take 3 tabs for 3 days, take 2 tabs for 3 days, take 1 tab for 3 days Active gabapentin (NEURONTIN) 100 mg capsule Take 1 Capsule by mouth at bedtime Active cyclobenzaprine (FLEXERIL) 5 mg tablet Take 1 tablet (5 mg total) by mouth at bedtime as needed for muscle spasms. 30 tablet 5 11/21/19 25 Active Additional Information Patient not taking.Reported on 10/03/2024 diclofenac (VOLTAREN) 50 mg EC tablet Take 1 tablet (50 mg total) by mouth 2 (two) times a day if needed (PAIN). Do not crush, chew, or split. 28 tablet 1 5 Active diclofenac (VOLTAREN) 1 % topical gel Apply 2 g topically 2 (two) times a day. 60 g 1 5 Active Active Problems Problem Noted Date Diagnosed [...] PT, yoga, other exercise, Western medicine and Sami medicine when she went back to [place] [...] Encounters Date Type Department Care Team Description 10/03/2024 10:45 AM EDT Consult Neurosurgery [place] [address] [place] [address] Henry Morel MD Osteoarthritis of lumbar spine, unspecified spinal osteoarthritis complication status; Chronic low back pain, unspecified back pain laterality, unspecified whether sciatica present; Chronic upper back pain 09/25/2024 3:15 PM EDT - 09/25/2024 11:59 PM EDT Hospital Encounter Radiology Department - [address] [phone] Tinnitus, subjective, bilateral; Imbalance Discharge Disposition: Home or Self Care 09/21/2024 10:26 AM EDT - 09/21/2024 11:59 PM EDT Hospital Encounter XRAY - [address] [phone] Chronic low back pain, unspecified back pain laterality, unspecified whether sciatica present Discharge Disposition: Home or Self Care 09/21/2024 10:25 AM EDT - 09/21/2024 11:59 PM EDT Hospital Encounter XRAY - [address] [phone] Chronic upper back pain Discharge Disposition: Home or Self Care 09/21/2024 9:45 AM EDT Office Visit [facility] - [address] [phone] Leslie Vera MD Osteoarthritis of lumbar spine, unspecified spinal osteoarthritis complication status (Primary Dx); Chronic low back pain, unspecified back pain laterality, unspecified whether sciatica present; Chronic upper back pain; Tinnitus, subjective, bilateral; Imbalance; Generalized body aches; Arthralgia, unspecified joint; Skin lesion; Polyuria; Polydipsia 08/30/2024 3:00 PM EDT Office Visit Vascular Surgery - [place] [address] [place] [phone] Shu Hutson MD Varicose veins of both lower extremities with pain (Primary Dx) 07/20/2024 11:30 AM EST Office Visit Obstetrics and Gynecology - [place] [address] [place] [phone] Kinsey Cotton, RENEE Encounter for annual physical examination excluding gynecological examination in a patient older than 17 years (Primary Dx) 07/06/2024 2:45 PM EST Ancillary Procedure [facility] [address] [facility] [address] [place] [address] Varicose veins of both lower extremities with pain from Last 3 Months Immunizations Name Administration Dates Next Due Hepatitis A Adult (Havrix; V aqta) 19yo and older 10/07/2022 Influenza Quadravalent, MDCK , 0.5ml, preservative free (Flucelvax) 6mo and older 02/07/2022,01/13/2019,02/28/2017 Influenza trivalent, with preservative (Fluzone; Afluria) 6mo and older 02/23/2023,03/19/2020,03/22/2018,2014,03/04/2011 Influenza, Unspecified 03/22/2018 [employer] SARS-CoV-2 COVID-19, mRNA, LNP-S, preservative free 07/06/2020 [...] Sign Reading Time Taken Comments Blood Pressure 114/78 09/21/2024 9:50 AM EDT Pulse 72 09/21/2024 9:50 AM EDT Temperature 36.8 ??C (98.2 ??F) 09/21/2024 9:50 AM ED T Respiratory Rate 14 09/21/2024 9:50 AM EDT Oxygen Saturation - - Inhaled Oxygen Concentration - - Weight 55.3 kg (122 lb) 10/03/2024 11:03 AM EDT Height 165.1 cm (5' 5 ) 10/03/2024 11:03 AM EDT Body Mass Index 20.3 10/03/2024 11:03 AM EDT Plan of Treatment Upcoming Encounters Date Type Department Care Team (Late st Contact Info) Description 01/31/2025 10:00 AM EDT Appointment Radiology Department - [place] [address] [place], [place] [phone] 04/27/2025 3:00 PM EST Office Visit Adult Medicine [facility] [place] [address], [place] [phone] Leslie Vera MD [address] [place], [place] 08/30/2025 3:30 PM EDT Office Visit Vascular Surgery - [place] [address] [place] [address] Dalia Estrella PA [address] [place] [address] Health Maintenance Due Date Last Done Comments [...] Procedure Name Priority Date/Time Associated Diagnosis Comments MR BRAIN WO CONTRAST Routine 09/25/2024 4:10 PM EDT Tinnitus, subjective, bilateral Imbalance CANTRELL URINE CULTURE TUBE Routine 09/21/2024 10:56 AM EDT Polyuria Polydipsia URINALYSIS WITH REFLEX MICROSCOPIC AND CULTURE Routine 09/21/2024 10:56 AM EDT Polyuria Polydipsia BORRELIA BURGDORFERI ANTIBODY Routine 09/21/2024 10:56 AM EDT Generalized body aches Arthralgia, unspecified joint URIC ACID Routine 09/21/2024 10:56 AM EDT Generalized body aches Arthralgia, unspecified joint SUSANNA IFA WITH TITER AND PATTERN Routine 09/21/2024 10:56 AM EDT Generalized body aches Arthralgia, unspecified joint CYCLIC CITRULLINATED PEPTIDE, IGG AND IGA Routine 09/21/2024 10:56 AM EDT Generalized body aches Arthralgia, unspecified joint C-REACTIVE PROTEIN Routine 09/21/2024 10 :56 AM EDT Generalized body aches Arthralgia, unspecified joint RHEUMATOID FACTOR Routine 09/21/2024 10: 56 AM EDT Generalized body aches Arthralgia, unspecified joint VITAMIN D 25 HYDROXY Routine 09/21/2024 10:56 AM EDT Generalized body aches Arthralgia, unspecified joint CALCIUM, IONIZED Routine 09/21/2024 10:5 6 AM EDT Generalized body aches Arthralgia, unspecified joint HEMOGLOBIN A1C Routine 09/21/2024 10:56 AM EDT Polyuria Polydipsia URINALYSIS WITH REFLEX MICROSCOPIC AND CULTURE Routine 09/21/2024 10:56 AM EDT Polyuria Polydipsia COMPREHENSIVE METABOLIC PANEL Routine 09/21/2024 10:56 AM EDT Polyuria Polydipsia XR LUMBAR SPINE 4+ VIEWS Routine 09/21/2024 10:39 AM EDT Chronic low back pain, unspecified back pain laterality, unspecified whether sciatica present XR THORACIC SPINE 2 VIEWS Routine 09/21/2024 10:39 AM EDT Chronic upper back pain VAS US DUPLEX LOWER EXT VENOUS INSUFFICIENCY BILATERAL Routine 07/06/2024 3:18 PM EST Varicose veins of both lower extremities with pain HM DEPRESSION SCREENING Routine 02/04/2024 SCREENING MAMMOGRAPHY BI 2-VIEW BREAST INC CAD Routine 01/19/2024 10:29 AM EDT Encounter for screening mammogram for malignant neoplasm of breast HM HPV Routine 10/29/2022 HM HEPATITIS C SCREENING Routine 10/07/2022 LIPID PANEL Routine 10/07/2022 HM COLONOSCOPY Routine 03/23/2022 from Last 3 Months or Most Recently Relevant to Health Maintenance Results * MR Brain wo Contrast (09/25/2024 4:10 PM EDT) Anatomical Region Laterality Modality Head and Neck Magnetic Resonan ce 09/25/2024 5:18 PM EDT Impressions 09/25/2024 5:27 PM EDT Unremarkable examination. -------- FINAL REPORT -------- Dictated By: Caitlyn Nunez Dictated Date: 09/25/2024 17:18 ET Assigned Physician: Caitlyn Nunez Reviewed and Electronically Signed By: Caitlyn Nunez Signed Date: 09/25/2024 17:27 ET Workstation ID: [id number] Transcribed By: Self Edit Transcribed Date: 09/25/2024 17:18 ET Narrative 09/25/2024 5:27 PM EDT MR BRAIN WO CONTRAST TECHNIQUE: Multisequence MRI of the brain was performed without administration of intravenous contrast. HISTORY: PERSISTENT TINNITUS, IMBALANCE R/O BRAIN MASS COMPARISON: Brain MRI on January 04, 2023. FINDINGS: Motion/artifacts seen in many sequences. IAC:Bilateral 7th and 8th cranial nerve complexes appear unremarkable. No focal mass at the cerebellopontine angles or internal auditory canals. Bilateral inner ears appear unremarkable. Brain Parenchyma: No shift of midline structures. ??No evidence of acute infarct, parenchymal hemorrhage or mass effect. Ventricular System and Extra-Axial Spaces: No hydrocephalus. ??No extra-axial fluid collection. Extracranial Structures: Arterial flow voids in the skull base are present. Minimal mucosal thickening of the ethmoid air cells. ??Mastoid air cells are clear. Procedure Note Caitlyn Nunez MD - 09/25/2024 MR BRAIN WO CONTRAST TECHNIQUE: Multisequence MRI of the brain was performed withoutadministration of intravenous contrast. HISTORY: PERSISTENT TINNITUS, IMBALANCE R/O BRAIN MASS COMPARISON: Brain MRI on January 04, 2023. FINDINGS: Motion/artifacts seen in many sequences. IAC:Bilateral 7th and 8th cranial nerve complexes appear unremarkable. Nofocal mass at the cerebellopontine angles or internal auditory canals.Bilateral inner ears appear unremarkable. Brain Parenchyma: No shift of midline structures. No evidence of acuteinfarct, parenchymal hemorrhage or mass effect. Ventricular System and Extra-Axial Spaces: No hydrocephalus. Noextra-axial fluid collection. Extracranial Structures: Arterial flow voids in the skull base arepresent. Minimal mucosal thickening of the ethmoid air cells. Mastoid aircells are clear. IMPRESSION: Unremarkable examination. -------- FINAL REPORT -------- Dictated By: Caitlyn Nunez Dictated Date: 09/25/2024 17:18 ET Assigned Physician: Caitlyn uNnez Reviewed and Electronically Signed By: Caitlyn Nunez Signed Date: 09/25/2024 17:27 ET Workstation ID: [id number] Transcribed By: Self Edit Transcribed Date: 09/25/2024 17:18 ET Leslie Vera MD IM MRI PROCEDURES Final Re sult * (ABNORMAL) Urinalysis with reflex microscopic and culture (09/21/2024 10:56 AM EDT) Specific [place] Urine 1.022 1.003 - 1.030 LAB URINALYSIS - AUTOMATED METHOD 09/21/2024 2:15 PM [facility] pH, Urine 5.5 5.0 - 8.0 pH LAB URINALYSIS - AUTOMATED METHOD 09/21/2024 2:15 PM [facility] Leukocytes, Urine Negative Negative LAB URINALYSIS - AUTOMATED METHOD 09/21/2024 2:15 PM [facility] Nitrite, Urine Negative Negative LAB URINALYSIS - AUTOMATED METHOD 09/21/2024 2:15 PM [facility] Protein, Urine Negative <=Trace mg/dL LAB URINALYSIS - AUTOMATED METHOD 09/21/2024 2:15 PM [facility] Glucose, Urine Negative Negative mg/dL LAB URINALYSIS - AUTOMATED METHOD 09/21/2024 2:15 PM [facility] Ketones, Urine Negative Negative mg/dL LAB URINALYSIS - AUTOMATED METHOD 09/21/2024 2:15 PM [facility] Urobilinogen, Urine 0.2 0.2 - 1.0 mg/dL LAB URINALYSIS - AUTOMATED METHOD 09/21/2024 2:15 PM [facility] Bilirubin, Urine Negative Negative LAB URINALYSIS - AUTOMATED METHOD 09/21/2024 2:15 PM [facility] Blood, Urine Small(A) Negative LAB URINALYSIS - AUTOMATED METHOD 09/21/2024 2:15 PM [facility] RBC, Urine 3.9 0 - 4 /HPF LAB URINALYSIS - AUTOMATED METHOD 09/21/2024 2:15 PM [facility] WBC, Urine 0.4 0 - 4 /HPF LAB URINALYSIS - AUTOMATED METHOD 09/21/2024 2:15 PM [facility] Squamous Epithelial, Urine 3 0 - 60 /LPF LAB URINALYSIS - AUTOMATED METHOD 09/21/2024 2:15 PM [facility] Bacteria, Urine Negative Negative /HPF LAB URINALYSIS - AUTOMATED METHOD 09/21/2024 2:15 PM [facility] Hyaline Casts, Urine 0.8 0 - 3 /LPF LAB URINALYSIS - AUTOMATED METHOD 09/21/2024 2:15 PM [facility] Urine Urine specimen obtained by clean catch procedure / Unknown Non-blood Collection / Unknown 09/21/2024 10:56 AM EDT 09/21/2024 10:56 AM EDT us Leslie Vera MD LAB URINE ORDERABLES Final Result [facility] [address] [place] [address], * Cantrell urine culture tube (09/21/2024 10:56 AM EDT) [facility] Extra Tube Hold for add-ons. 09/21/2024 4:01 PM EDT [facility] Comment:Auto resulted. Urine Urine specimen obtained by clean catch procedure / Unknown Non-blood Collection / Unknown 09/21/2024 10:56 AM EDT 09/21/2024 10:56 AM EDT Leslie Vera MD LAB URINE ORDERABLES Final Result Performing Organization Address City/[facility]/ZIP Co de Phone Number [facility] [address] [place] [address], [place] [phone] * Cyclic citrullinated peptide, IgG and IgA (09/21/2024 10:56 AM EDT) [facility] CCP AB Quant 7 <20 Units LAB CHEMISTRY METHOD 09/26/2024 10:28 AM EDT [facility] Cyclic Citrullinated Peptide (CCP) Antibody Negative Negative LAB CHEMISTRY METHOD 09/26/2024 10:28 AM EDT [facility] Blood Venous blood specimen / Unknown Venipuncture / Unknown 09/21/2024 10:56 AM EDT 09/21/2024 10:56 AM EDT Leslie Vera MD LAB BLOOD ORDERABLES Final Result [facility] [address] [place] [address], [place] [phone] * SUSANNA IFA with titer and pattern (09/21/2024 10:56 AM EDT) [facility] SUSANNA Negative Negative 09/22/2024 12:49 PM EDT [facility] Blood Venous blood specimen / Unknown Venipuncture / Unknown 09/21/2024 10:56 AM EDT 09/21/2024 10:56 AM EDT Leslie Vera MD LAB BLOOD ORDERABLES Final Result Performing Organization Address City/[facility]/ZIP Co de Phone Number [facility] [address] [place] [address], [place] [phone] * Borrelia burgdorferi antibody (09/21/2024 10:56 AM EDT) [facility] Lyme Ab Negative Negative LAB CHEMISTRY METHOD 09/21/2024 3:01 PM EDT [facility] Comment: No laboratory evidence of infection with B. burgdorferi (Lyme disease). Negative results may occur in patients recently infected (<=14 days) with B. burgdorferi. ??If recent infection is suspected, repeat testing on a new sample collected in 7-14 days is recommended. Blood Venous blood specimen / Unknown Venipuncture / Unknown 09/21/2024 10:56 AM EDT 09/21/2024 10:56 AM EDT Leslie Vera MD LAB BLOOD ORDERABLES Final Result Performing Organization Address [facility]/ZIP Co de Phone Number [facility] [address] [place] [address], [place] [phone] * Vitamin D 25 hydroxy (09/21/2024 10:56 AM EDT) [facility] Vit D, 25-Hydroxy 39.4 30.0 - 80.0 ng/mL LAB CHEMISTRY METHOD 09/21/2024 5:59 PM EDT [facility] Blood Venous blood specimen / Unknown Venipuncture / Unknown 09/21/2024 10:56 AM EDT 09/21/2024 10:56 AM EDT Leslie Vera MD LAB BLOOD ORDERABLES Final Result [facility] [address] [place] [address], [place] [phone] * Rheumatoid factor (09/21/2024 10:56 AM EDT) Rheumatoid Factor <10.0 <15.0 I Unit/mL LAB CHEMISTRY METHOD 09/21/2024 4:05 PM EDT [facility] Blood Venous blood specimen / Unknown Venipuncture / Unknown 09/21/2024 10:56 AM EDT 09/21/2024 10:56 AM EDT Leslie Vera MD LAB BLOOD ORDERABLES Final Result [facility] [address] [place] [address], [place] [phone] * C-reactive protein (09/21/2024 10:56 AM EDT) C-Reactive Protein <0.29 <=0.50 mg/dL LAB CHEMISTRY METHOD 09/21/2024 4:05 PM EDT [facility] Blood Venous blood specimen / Unknown Venipuncture / Unknown 09/21/2024 10:56 AM EDT 09/21/2024 10:56 AM EDT Leslie Vera MD LAB BLOOD ORDERABLES Final Result [facility] [address] [place] [address], [place] [phone] * Uric acid (09/21/2024 10:56 AM EDT) Uric Acid 4.1 3.1 - 7.8 mg/dL LAB CHEMISTRY METHOD 09/21/2024 4:05 PM EDT [facility] Blood Venous blood specimen / Unknown Venipuncture / Unknown 09/21/2024 10:56 AM EDT 09/21/2024 10:56 AM EDT Leslie Vera MD LAB BLOOD ORDERABLES Final Result [facility] [address] [place] [address], [place] [phone] * Hemoglobin A1c (09/21/2024 10:56 AM EDT) Hemoglobin A1C 5.5 <6.5 % LAB CHEMISTRY METHOD 09/21/2024 10:10 PM EDT [facility] Mean Bld Glu Estim. 111 mg/dL LAB CHEMISTRY METHOD 09/21/2024 10:10 PM EDT [facility] Blood Venous blood specimen / Unknown Venipuncture / Unknown 09/21/2024 10:56 AM EDT 09/21/2024 10:56 AM EDT Leslie Vera MD LAB BLOOD ORDERABLES Final Result [facility] [address] [place] [address], [place] [phone] * Calcium, ionized (09/21/2024 10:56 AM EDT) Calcium Ionized 5.1 4.6 - 5.4 mg/dL 09/25/2024 9:59 AM EDT [facility] Comment: Test performed at [facility], [address] , [place], [place] ??[address] ? [phone] Salome Thorpe MD, PhD - [employer] Blood Venous blood specimen / Unknown Venipuncture / Unknown 09/21/2024 10:56 AM EDT 09/21/2024 10:56 AM EDT Leslie Vera MD LAB BLOOD ORDERABLES Final Result [facility] [address] [place] [address] * Comprehensive metabolic panel (09/21/2024 10:56 AM EDT) Sodium 141 133 - 145 mmol/L LAB CHEMISTRY METHOD 09/21/2024 4:05 PM [facility] Potassium 3.9 3.5 - 5.5 mmol/L LAB CHEMISTRY METHOD 09/21/2024 4:05 PM [facility] Chloride 107 96 - 110 mmol/L LAB CHEMISTRY METHOD 09/21/2024 4:05 PM [facility] CO2 30 21 - 32 mmol/L LAB CHEMISTRY METHOD 09/21/2024 4:05 PM [facility] Anion Gap 4 3 - 11 LAB CHEMISTRY METHOD 09/21/2024 4:05 PM [facility] Glucose 91 70 - 100 mg/dL LAB CHEMISTRY METHOD 09/21/2024 4:05 PM [facility] BUN 16 5 - 25 mg/dL LAB CHEMISTRY METHOD 09/21/2024 4:05 PM [facility] Creatinine 0.50 0.50 - 1.10 mg/dL LAB CHEMISTRY METHOD 09/21/2024 4:05 PM [facility] eGFR 112 >=60 mL/min/1. 73m2 LAB CHEMISTRY METHOD 09/21/2024 4:05 PM [facility] Comment:Calculation based on the Chronic Kidney Disease Epidemiology Collaboration (CKD-EPI) equation refit without adjustment for race. BUN/Creatinine Ratio 32.0 LAB CHEMISTRY METHOD 09/21/2024 4:05 PM [facility] Calcium 9.0 8.5 - 10.5 mg/dL LAB CHEMISTRY METHOD 09/21/2024 4:05 PM [facility] AST (SGOT) 21 10 - 42 unit/L LAB CHEMISTRY METHOD 09/21/2024 4:05 PM [facility] ALT (SGPT) 24 10 - 60 unit/L LAB CHEMISTRY METHOD 09/21/2024 4:05 PM EDT [facility] Alkaline Phosphatase 113 42 - 121 unit/L LAB CHEMISTRY METHOD 09/21/2024 4:05 PM EDT [facility] Total Protein 7.4 6.0 - 8.0 g/dL LAB CHEMISTRY METHOD 09/21/2024 4:05 PM EDT [facility] Albumin 4.1 3.2 - 5.0 g/dL LAB CHEMISTRY METHOD 09/21/2024 4:05 PM EDT [facility] Total Bilirubin 0.7 0.0 - 1.4 mg/dL LAB CHEMISTRY METHOD 09/21/2024 4:05 PM EDT [facility] Blood Venous blood specimen / Unknown Venipuncture / Unknown 09/21/2024 10:56 AM EDT 09/21/2024 10:56 AM EDT us Leslie Vera MD LAB BLOOD ORDERABLES Final Result [facility] [address] [place] [address], [place] [phone] * XR Lumbar Spine 4+ Views (09/21/2024 10:39 AM EDT) Anatomical Region Laterality Modality Spine, L-spine Radiographic Mary ging 09/21/2024 3:20 PM EDT Narrative 09/21/2024 3:21 PM EDT Lumbosacral spine, 4 views. History chronic low back pain. Comparison with prior examinations, latest from 12/04/2021. There is minimal arm thoracolumbar levoscoliosis. Vertebral bodies and disc spaces are maintained in height. There are small discogenic osteophytes at L2-3 and L3- 4 levels. There is no fractures, dislocations or destructive lesions. CONCLUSIONS: Mild thoracolumbar levoscoliosis. Mild degenerative changes as detailed. -------- FINAL REPORT -------- Dictated By: Iwona Heart Dictated Date: 09/21/2024 15:20 ET Assigned Physician: Iwona Heart Reviewed and Electronically Signed By: Iwona Heart Signed Date: 09/21/2024 15:21 ET Workstation ID: [id number] Transcribed By: Self Edit Transcribed Date: 09/21/2024 15:20 ET Procedure Note Iwona Heart MD - 09/21/2024 Lumbosacral spine, 4 views. History chronic low back pain. Comparison with prior examinations, latest from 12/04/2021. There is minimal arm thoracolumbar levoscoliosis. Vertebral bodies anddisc spaces are maintained in height. There are small discogenicosteophytes at L2-3 and L3-4 levels. There is no fractures, dislocationsor destructive lesions. CONCLUSIONS: Mild thoracolumbar levoscoliosis. Mild degenerative changesas detailed. -------- FINAL REPORT -------- Dictated By: Iwona Heart Dictated Date: 09/21/2024 15:20 ET Assigned Physician: Iwona Heart Reviewed and Electronically Signed By: Iwona Heart Signed Date: 09/21/2024 15:21 ET Workstation ID: [id number] Transcribed By: Self Edit Transcribed Date: 09/21/2024 15:20 ET us Leslie Vera MD IMG XR PROCEDURES Final Res ult * XR Thoracic Spine 2 Views (09/21/2024 10:39 AM EDT) Anatomical Region Laterality Modality Spine, T-spine Radiographic Mary ging 09/21/2024 3:19 PM EDT Narrative 09/21/2024 3:20 PM EDT Dorsal spine, 2 views. History chronic upper back pain. Comparison with prior studies, latest from 10/07/2022. Vertebral bodies and disc spaces are maintained in height. There is no fractures, dislocations or destructive lesions. Pedicles are maintained. CONCLUSIONS: Unremarkable radiographs of the thoracic spine. -------- FINAL REPORT -------- Dictated By: Iwona Heart Dictated Date: 09/21/2024 15:19 ET Assigned Physician: Iwona Heart Reviewed and Electronically Signed By: Iwona Heart Signed Date: 09/21/2024 15:20 ET Workstation ID: [id number] Transcribed By: Self Edit Transcribed Date: 09/21/2024 15:19 ET Procedure Note Iwona Heart MD - 09/21/2024 Dorsal spine, 2 views. History chronic upper back pain. Comparison with prior studies, latest from 10/07/2022. Vertebral bodies and disc spaces are maintained in height. There is nofractures, dislocations or destructive lesions. Pedicles are maintained. CONCLUSIONS: Unremarkable radiographs of the thoracic spine. -------- FINAL REPORT -------- Dictated By: wIona Heart Dictated Date: 09/21/2024 15:19 ET Assigned Physician: Iwona Heart Reviewed and Electronically Signed By: Iwona Heart Signed Date: 09/21/2024 15:20 ET Workstation ID: [id number] Transcribed By: Self Edit Transcribed Date: 09/21/2024 15:19 ET us Leslie Vera MD IMG XR PROCEDURES Final Res ult * Vascular US duplex lower extremity venous [...] performed with the patient in reverse trendelenburg. Student Admissions Clerk Details A cantrell scale, color and doppler analysis ultrasound was performed. During the study longitudinal and transverse views were obtained. Pulsed wave doppler was performed. us Dalia VELAZCO CV VASCULAR PROCEDURES Final R esult * Depression Screening (02/04/2024) Pathologist [facility] Depression Screening abstracted us Historical Provider HEALTH [...] in 12 months. BI-RADS: Category 1: Negative [address] [address] [phone] Procedure Note Caitlyn Nunez MD - 03/01/2024 [...] in 12 months. BI-RADS: Category 1: Negative [address] [id number] [phone] Svitlana Castillo DO IMG XR PROCEDURES Final Result * Cervical Cancer Screening: HPV (10/29/2022) [facility] Cervical Cancer Screening: HPV abstracted ,negative Historical Provider HEALTH MAINTENANCE Final Result * Hepatitis C Screening (10/07/2022) [facility] Hepatitis C Screening abstracted Historical Provider HEALTH MAINTENANCE Final Result * Lipid panel (10/07/2022) [facility] LDL/HDL Ratio 2 0 - 4 Triglycerides 59 0 - 150 mg/dL Cholesterol 178 0 - 200 mg/dL HDL 84 >=40 mg/dL LDL Cholesterol 83 0 - 100 mg/dL Blood Venous blood specimen / Unknown Historical Provider LAB BLOOD ORDERABLES Sherrie l Result * Colonoscopy (03/23/2022) [facility] Colonoscopy abstracted,no interpretation Anatomical Region Laterality Modality Other Historical Provider HEALTH MAINTENANCE Final Result from Last 3 Months or Most Recently Relevant to Health Maintenance Insurance [facility] [employer] Care Teams Hand Clerical Verifier Relationship Specialty Start Date End Date Lesile Vera MD [address] [place] [address] [facility] - General 08/10/22
[2024-10-16 08:15] VITALS: BP 121/77; PULSE 79; RESP 12; TEMP 36.6; O2SAT 100
--- NOTE | 2024-10-16 09:25 | MHC.SHP ---
Pre-Procedural Eval Section A - 24 Hr Update-Section A only Date of Service: 10/16/24 The patient is an INPATIENT: No Changes since office visit: No Cold of Flu in the past 2 weeks, No New Medical Problems, No Changes in Medication and No Patient answered all questions The patient has been examined within 24 hours of the surgical procedure. The History & Physical has been completed within 30 days and I have reviewed it.: Yes Section B - Complete if H&P > 30 days Chief Complaint: Carpal tunnel syndrome, left upper limb Allergies: Allergies Allergy/AdvReac Type Severity Reaction Status Date / Time No Known Allergies Allergy Verified 10/16/24 08:13 Plan Diagnosis/Plan: Unchanged I have reviewed the history and physical and performed a pertinent physical examination on my patient. No changes have occurred unless specified. Time Spent With Patient Time: Total time managing care of this patient today ____ minutes.
--- NOTE | 2024-10-16 09:26 | W.PM.OPN ---
Operative Note Operative Note Date of Service: 10/16/24 Narrative: Preop diagnosis: 1. Left Carpal tunnel syndrome Postop diagnosis: same Procedure: 1. Left Carpal tunnel release Surgeon: Harleen Heller MD Fairing Worker: None Anesthesia: local block using 1% lidocaine with epinephrine Findings: Thickened transverse carpal ligament. EBL: Less than 5 mL Specimens: None Complications: None Disposition: Brought to recovery room in stable condition Plan: Follow-up for 10-14 days for wound check and suture removal Indications: The patient is 54 years old, with left carpal tunnel syndrome that has been unresponsive to nonoperative management. The risks and benefits of operative treatment including but not limited to risk of damage to blood vessels, nerves, tendons, infection, persistent pain, persistent symptoms, or possible need for additional surgery were discussed with the patient and the patient wishes to proceed with surgery. Procedure: Once consent was obtained a local block was performed using a combination of 1% lidocaine with epinephrine. The patient was then brought back to the operating suite and placed on the operative table in supine position. The left upper extremity was prepped and draped in a standard surgical fashion. Once assured that we had a good block, a 2.0 cm longitudinal incision was made centered over the carpal tunnel. The incision was made through the skin to the subcutaneous tissues using a #15 blade. Dissection was made down to the level of the transverse carpal ligament with care being taken to protect the palmar cutaneous nerve. Once the transverse carpal ligament was clearly visualized, a longitudinal incision was made in the transverse carpal ligament 1st using a #15 blade, then using tenotomy scissors under direct visualization. Care was taken to look for and protect the motor branch of the median nerve when seen in this area. Once satisfied with our carpal tunnel release the wound was copiously irrigated with normal saline and hemostasis was obtained with a brief period of local pressure. The skin edges were reapproximated with some 5.0 nylon suture material and a sterile dressing was applied. The patient appears to have tolerated the procedure well and with no complications. All digits were well vascularized at the conclusion of the case.
[2024-10-16 10:50] VITALS: BP 113/69; PULSE 71; RESP 16; O2SAT 100
== END 2024-10-16 10:53 | disposition home or self-care (01) ==
PROVIDERS: PCP Internal Medicine; Visit Provider Orthopaedic Surgery
PROC: (CPT 64721; principal; 2024-10-16 09:10)
DX: G56.02 Carpal tunnel syndrome, left upper limb (principal); R20.0 Anesthesia of skin; Z79.899 Other long term (current) drug therapy
CPT/HCPCS: 64721; J0171; J2003

== ENCOUNTER → 2024-10-16 08:00 | Outpatient (BNV) | payer OTHER, SELFPAY | PROVIDERS: PCP Internal Medicine; Visit Provider Orthopaedic Surgery | DX: G56.02 Carpal tunnel syndrome, left upper limb (principal) | CPT/HCPCS: 64721 ==

== ENCOUNTER 2024-10-30 14:41 | Outpatient (AMB) | payer OTHER, SELFPAY ==
[2024-10-30 14:51] VITALS: BMI 20.8
--- NOTE | 2024-10-30 14:51 | MHC.OFFVIS ---
Vital Signs 10/30/24 14:51 Height 5 ft 5 in Weight 125 lb BMI 20.8 Intake Visit Reasons: PO-Lt CTR 10/16/24 Intake Note: Yadiel is a 54 year old right hand dominant male who presents today for a post operative visit status post left carpal tunnel release DOS: 10/16/[address] Harleen Heller. Patient reports she continues to have numbness and tingling at the fingertips. Sutures removed and steri strips have been applied. Allergies No Known Allergies Allergy (Verified 10/30/24 14:51) HPI HPI PO-Lt CTR 10/16/24: Details: Yadiel is a 54 year old right hand dominant male who presents today for a post operative visit status post left carpal tunnel release DOS: 10/16/[address] Harleen Heller. Patient reports she continues to have numbness and tingling at the fingertips but it has improved. Sutures removed and steri strips have been applied. Review of Systems Const All systems reviewed & are unremarkable except as noted in HPI and below Physical Exam Vital Signs: BMI result Body Mass Index 20.8 Const General: no acute distress and alert Orientation/consciousness: patient oriented x3 Neuro General: patient oriented x3 Extrem Other: The patient was alert oriented and in no acute distress The incision is healing well with no erythema drainage or evidence of infection. Sutures removed and Steri-Strips applied She can make a fist and extend all her digits Still with dense numbness in the median nerve distribution bilaterally. Cap refill is brisk Psych Appearance: grossly normal Affect: normal affect Attitude: cooperative Assessment & Plan Assessment & Plan (1) Bilateral carpal tunnel syndrome: Code(s): G56.03 - Carpal tunnel syndrome, bilateral upper limbs Category: Medical Plan 1. Status post left carpal tunnel release DOS 10/16/2024 Still experiencing dense numbness Patient appears to be recovering well postoperatively Patient is educated about the typical recovery course No acute follow-up indicated Patient is amenable to this plan Follow-up as needed Coding Level of Care Code Global (18593) Diagnoses Bilateral carpal tunnel syndrome G56.03
--- OUTSIDE RECORDS SUMMARY | 2024-10-30 16:26 | XMS_ITS | Data Portability ---
Author Organization JUAN A Dowell s, [address] Address [address] [place] [address] Care Team Providers Care Veterinary Poultry Inspector Name Role Phone [facility] Care Provider Assessment No assessment recorded. Plan of Treatment Reminders Order Date Submit Date Provider Last Modified By Organization Details Last Modified Time Details Appointments None recorded. Lab urinalysis, dipstick 2023 024 [email or web address] [facility] [address], [address] [place], [address], 4 10:58:11 CMP, serum or plasma 2023 [address] [email or web address] [facility], [address] [place] [address], [place], [address], 4 06:07:45 Referral emergency medicine referral 2023 024 [email or web address] 3 [facility] Emergency Department, [address] [place], [address], 4 15:00:03 Procedures cerumen removal (PROC) 2022 023 [email or web address] Not available 3 07:53:33 Surgeries None recorded. Imaging XR, neck, soft tissue - r/o foreign body (chicken bone), air in soft tissue 2023 024 acardinal 3 [facility], [address] [place] [address]., [place], [address], 4 15:00:03 Medication Orders meclizine 25 mg tablet 2022 023 [facility]armacy #[id number], [address] [place] [address], [address], 3 09:04:06 prednisone 20 mg tablet 2022 023 [email or web address] 31 [facility]armacy #[id number], [address] [place] [address], [address], 4 10:40:52 fexofenadin e-pseudoeph edrine ER 180 mg-240 mg tablet,ext. release 24 hr 2022 023 BALJIT [facility]/Pharmacy #[id number], [address] [place] [address], [address], 3 09:41:03 Patient TargetsNo targets recorded. Patient Instructions Encounter Date Encounter Id Patient Instructions Last Modified By Organization Details Last Modified Time 10/14/2022 [id number] earwax blockage: care instructions [email or web address] Not available 10/14/2022 11:30:52 tinnitus: care instructions [email or web address] Not available 10/14/2022 11:37:19 tinnitus information [email or web address] Not available 10/14/2022 11:37:19 Your earwax was completely removed and does not appear to be the cause of your tinnitus. Keep the appointment that you have scheduled for 10/29/22 with your ENT doctor. See printed instructions. Seek Emergency Medical evaluation for any worsening symptoms. [email or web address] Not available 10/14/2022 11:58:14 10/26/2022 [id number] dizziness: care instructions Not available 10/26/2022 09:41:00 tinnitus: care instructions Not available 10/26/2022 09:41:00 11/01/2022 [id number] benign paroxysma l positional vertigo (bppv): care [...] ENT providers Not available 11/01/2022 08:55:56 09/28/2023 [id number] You have been advised to go now to the Emergency Department for further evaluation of a foreign body (?chicken bone) in your throat. [facility] ER has been advised of your impending arrival. Do not eat or drink anything until cleared by ER staff. You evaluation, treatment and final disposition will be determined by ER staff. [email or web address] Not available 09/28/2023 14:53:52 02/01/2024 [id number] frequent urination: care instructions [email or web address] Not available [...] 70-99 above high normal Not Available [facility] ([facility]) [address] [place], [address], 02/02/2024 06:07:45 02/01/20 24 02/02/2024 COMP. METAB OLIC PANEL (14) BUN 11 mg/dL 6-24 normal Not Available [facility] ([facility]) [address] [place], [address], 02/02/2024 06:07:45 02/01/20 24 02/02/2024 COMP. METAB OLIC PANEL (14) creatinine 0.58 mg/dL 0.57-1 .00 normal Not Available [facility] ([facility]) [address] [place], [address], 02/02/2024 06:07:45 02/01/20 24 02/02/2024 COMP. METAB OLIC PANEL (14) eGFR 109 mL/mi n/1.7 3 >59 normal Not Available [facility] ([facility]) [address] [facility], [place], [address], 02/02/2024 06:07:45 02/01/20 24 02/02/2024 COMP. METAB OLIC PANEL (14) BUN/creatini ne ratio 19 9-23 normal Not Available [facility] ([facility]) [address] [facility], [place], [address], 02/02/2024 06:07:45 02/01/20 24 02/02/2024 COMP. METAB OLIC PANEL (14) sodium 142 mmol/ L 134-14 4 normal Not Available [facility] ([facility]) [address] [facility], [place], [address], 02/02/2024 06:07:45 02/01/20 24 02/02/2024 COMP. METAB OLIC PANEL (14) potassium 4.2 mmol/ L 3.5-5. 2 normal Not Available [facility] ([facility]) [address] [facility], [place], [address], 02/02/2024 06:07:45 02/01/20 24 02/02/2024 COMP. METAB OLIC PANEL (14) chloride 102 mmol/ L 96-106 normal Not Available [facility] ([facility]) [address] [facility], [place], [address], 02/02/2024 06:07:45 02/01/20 24 02/02/2024 COMP. METAB OLIC PANEL (14) carbon dioxide, total 26 mmol/ L 20-29 normal Not Available [facility] ([facility]) [address] [facility], [place], [address], 02/02/2024 06:07:45 02/01/20 24 02/02/2024 COMP. METAB OLIC PANEL (14) calcium 9.9 mg/dL 8.7-10 .2 normal Not Available [facility] ([facility]) [address] [place], [address], 02/02/2024 06:07:45 02/01/20 24 02/02/2024 COMP. METAB OLIC PANEL (14) protein, total 7.2 g/dL 6.0-8. 5 normal Not Available [facility] ([facility]) [address] [place], [address], 02/02/2024 06:07:45 02/01/20 24 02/02/2024 COMP. METAB OLIC PANEL (14) albumin 4.8 g/dL 3.8-4. 9 normal Not Available [facility] ([facility]) [address] [place], [address], 02/02/2024 06:07:45 02/01/20 24 02/02/2024 COMP. METAB OLIC PANEL (14) globulin, total 2.4 g/dL 1.5-4. 5 Not Available [facility] ([facility]) [address] [place], [address], 02/02/2024 06:07:45 02/01/20 24 02/02/2024 COMP. METAB OLIC PANEL (14) bilirubin, total 0.8 mg/dL 0.0-1. 2 normal Not Available [facility] ([facility]) [address] [place], [address], 02/02/2024 06:07:45 02/01/20 24 02/02/2024 COMP. METAB OLIC PANEL (14) alkaline phosphatase 98 IU/L 44-121 normal Not Available [facility] ([facility]) [address] [place], [address], 02/02/2024 06:07:45 02/01/20 24 02/02/2024 COMP. METAB OLIC PANEL (14) AST (SGOT) 20 IU/L 0-40 normal Not Available [facility] ([facility]) [address] [facility], [place], [address], 02/02/2024 06:07:45 02/01/20 24 02/02/2024 COMP. METAB OLIC PANEL (14) ALT (SGPT) 16 IU/L 0-32 normal Not Available [facility] ([facility]) [address] [facility], [place], [address], 02/02/2024 06:07:45 02/01/20 24 02/01/2024 urina lysis , dipst ick Unknown Analyte Normal = light yellow Not Available [address] [place], [address], 02/01/2024 10:41:35 02/01/20 24 02/01/2024 urina lysis , dipst ick Unknown Analyte Normal = clear Not Available [address] [place], [address], 02/01/2024 10:41:35 02/01/20 24 02/01/2024 urina lysis , dipst ick Unknown Analyte Normal = negati ve Not Available [address] [place], [address], 02/01/2024 10:41:35 02/01/20 24 02/01/2024 urina lysis , dipst ick Unknown Analyte Negati ve Not Available [address] [place], [address], 02/01/2024 10:41:35 02/01/20 24 02/01/2024 urina lysis , dipst ick Unknown Analyte Normal = Negati ve Not Available [address] [place], [address], 02/01/2024 10:41:35 02/01/20 24 02/01/2024 urina lysis , dipst ick Unknown Analyte Negati ve Not Available [address] [place], [address], 02/01/2024 10:41:35 02/01/20 24 02/01/2024 urina lysis , dipst ick Unknown Analyte Normal = Negati ve Not Available [address] [place], [address], 02/01/2024 10:41:35 02/01/20 24 02/01/2024 urina lysis , dipst ick Unknown Analyte Negati ve Not Available [address] [place], [address], 02/01/2024 10:41:35 02/01/20 24 02/01/2024 urina lysis , dipst ick Unknown Analyte Normal = 1.010, 1.015, 1.020 Not Available [address] [place], [address], 02/01/2024 10:41:35 02/01/20 24 02/01/2024 urina lysis , dipst ick Unknown Analyte Normal = Negati ve Not Available [address] [place], [address], 02/01/2024 10:41:35 02/01/20 24 02/01/2024 urina lysis , dipst ick Unknown Analyte Trace- lysed Not Available [address] [place], [address], 02/01/2024 10:41:35 02/01/20 24 02/01/2024 urina lysis , dipst ick Unknown Analyte Normal = 6.5, 7.0, 7.5, 8.0 Not Available [address] [place], [address], 02/01/2024 10:41:35 02/01/2002/01/2024 urina lysis , dipst ick Unknown Analyte Normal = Negati ve Not Available [address] [place], [address], 02/01/2024 10:41:35 02/01/20 24 02/01/2024 urina lysis , dipst ick Unknown Analyte Negati ve Not Available [address] [place], [address], 02/01/2024 10:41:35 02/01/20 24 02/01/2024 urina lysis , dipst ick Unknown Analyte Normal = 0.2, 1.0 Not Available [address] [place], [address], 02/01/2024 10:41:35 02/01/20 24 02/01/2024 urina lysis , dipst ick Unknown Analyte Normal = Negati ve Not Available [address] [place], [address], 02/01/2024 10:41:35 02/01/2002/01/2024 urina lysis , dipst ick Unknown Analyte Negati ve Not Available [address] [place], [address], 02/01/2024 10:41:35 02/01/2002/01/2024 urina lysis , dipst ick Unknown Analyte Normal = Negati ve Not Available [address] [place], [address], 02/01/2024 10:41:35 02/01/20 24 02/01/2024 urina lysis , dipst ick Unknown Analyte Negati ve Not Available [address] [place], [address], 02/01/2024 10:41:35 02/01/20 24 02/01/2024 urina lysis , dipst ick Unknown Analyte Yellow Not Available [id number] [place] [address] [address] [place], [address], 02/01/2024 10:41:35 02/01/20 24 02/01/2024 urina lysis , dipst ick Unknown Analyte Clear Not Available [address] [place] [address] [address] [place], [address], 02/01/2024 10:41:35 02/01/20 24 02/01/2024 urina lysis , dipst ick Unknown Analyte 1.015 Not Available [address] [place] [address] [address] [place], [address], 02/01/2024 10:41:35 02/01/20 24 02/01/2024 urina lysis , dipst ick Unknown Analyte 7.0 Not Available [address] [place] [address] [address] [place], [address], 02/01/2024 10:41:35 02/01/20 24 02/01/2024 urina lysis , dipst ick Unknown Analyte 0.2 E.U./d L Not Available [address] [place], [address], 02/01/2024 10:41:35 09/28/19 24 09/28/2023 XR, neck, soft tissu e No observ ation record ed. [email or web address] [facility] [address] [facility] [place], [address], 09/28/2023 15:11:14 Result Notes None recorded. Problems Name Problem SNOMED Code Status Onset Date Resolution Date Notes Provider Name and Address Organization Details Recorded Time Chronic back pain 791064620 Active 2016 JUAN A Adams [facility] 3 10:50:30 Chronic neck pain 1437265720369 Active 1982 40x years [facility]AN A [facility] 3 10:50:51 Problem Notes None recorded. Procedures Surgical History Date Name Laterality Status Provider Name and Address Organization Details Recorded Time 3 Cerumen Removal by Irrigation completed ALANIS Hsieh [facility] 10/14/2022 11:48:01 Imaging Results None recorded. Procedure Notes None recorded. Medical Equipment None [...] Not Available Not Available Vitals Date Recorded Body height Body mass index (BMI) Body weight Oxygen saturation Oxygen saturation in Arterial blood by Pulse oximetry Heart rate Respiratory rate Body temperature Systolic blood pressure Diastolic blood pressure Provider Name and Address Organization Details Last Updated DateTime 4 165.1 cm 20.5 kg/m2 94536.8 6 g 97 % 97 % 76 /min 18 /min 97.9 [degF] 132 mm[Hg] 84 mm[Hg] Lyn Noel [place] - [facility] 4 13:55:17 Date Recorded Oxygen saturation Oxygen saturation in Arterial blood by Pulse oximetry Heart rate Respiratory rate Body temperature Body height Body mass index (BMI) Body weight Systolic blood pressure Diastolic blood pressure Provider Name and Address Organization Details Last Updated DateTime 3 99 % 99 % 68 /min 16 /min 98 [degF] 165.1 cm 20.3 kg/m2 89400.2 7 g 114 mm[Hg] 73 mm[Hg] LIYA FREITAS [place] - [facility] 3 10:52:21 Date Recorded Body height Body mass index (BMI) Body weight Oxygen saturation Oxygen saturation in Arterial blood by Pulse oximetry Heart rate Respiratory rate Body temperature Systolic blood pressure Diastolic blood pressure Provider Name and Address Organization Details Last Updated DateTime 3 165.1 cm 20 kg/m2 18217.0 8 g 100 % 100 % 77 [...] Updated DateTime 3 165.1 cm 20 kg/m2 18586.0 8 g 100 % 100 % 71 /min 18 /min 97.7 [degF] 128 mm[Hg] 87 mm[Hg] JEREMI ALDANA PA - [facility] 3 08:26:38 Date Recorded Body height Body mass index (BMI) Body weight Oxygen saturation Oxygen saturation in Arterial blood by Pulse oximetry Heart rate Respiratory rate Body temperature Systolic blood pressure Diastolic blood pressure Provider Name and Address Organization Details Last Updated DateTime 4 165.1 cm 20.5 kg/m2 64956.8 6 g 100 % 100 % 69 /min 18 /min 98.7 [degF] 134 mm[Hg] 88 mm[Hg] Lyn Noel [place] - [facility] 4 10:41:17 Social History Question Answer Notes LastModified by [employer] Details LastModified Time Tobacco Smoking Status Never Smoker LIYA vale [place] - [facility] 10/14/2022 10:51:04 Have You Had A Flu Shot This Season? Yes Information not available 09/28/2023 What Was The Date Of Your Most Recent Tobacco Screening? 02/01/2024 [email or web address] Information not available 02/01/2024 Have You Recently Traveled Abroad? No [email or web address] Information not available 09/28/2023 Sex: Unknown Functional Status Question Answer Note LastModified by [employer] Details LastModified Time Do you use any [...] SNOMED-CT Code Diagnosis ICD10 Code Diagnosis Note [id number] [place] [address] [facility] [address] [place] [address] 10/14/2022 10:35:44 10/14/2022 11:59:32 Impacted cerumen in left ear 6516428097 758309 H61.22 Tinnitus of left ear 823 8763977 106 H93.12 [id number] Moises Tran MD [address] [facility] [address] [place] [address] 10/26/2022 08:16:59 10/26/2022 09:42:20 Middle ear effusion 9731560466 H74.8X9 Chronic middle ear effusion with Tinnitus.W ill need t make a ENT follow up.Please follow up with PCP or Urgent Care in 3-5 days if no improvemen t or if any new symptoms occur that are concerning . Benign par oxysmal positional vertigo 136879692 H81.13 Dizziness triggered by the middle ear fluid.Plea se make a follow up with ENT as soon as you can [id number] JUAN A Melvin [address] [facility] [address] [place] [address] 11/01/2022 08:10:33 11/01/2022 09:07:36 Benign paroxysmal positional vertigo 783269002 H81.11 [id number] Mitzy Ellsworth MD [address] [facility] [address] [facility] [place] [address] 09/28/2023 12:53:05 09/28/2023 15:00:02 Pain in throat 336389292 R07.0 Foreign cornell dy in pharynx 49966511 T17.208A Hypopharyn geal foreign body. [id number] JUAN A Henderson [address] [facility] [address] [place] [address] 02/01/2024 10:31:22 02/01/2024 11:10:50 Increased frequency of urination 529554741 R35.0 You were seen today for increased urinary frequency and some bubbles in your urine. Your urine dip in clinic looks good. Since you are having symptoms, we will test for diabetes and make sure your kidneys are functionin g properly Please go to the ED if you start seeing blood in your urine or are haqving severe pain Paresthesia of finger 76 7015055 R20.2 You were seen today for numb [...] numbness and weakness Thank you for using [facility] today, please feel free to contact our office if you have any questions or concerns. Health Concerns Section Related Observation LastModified by Organization Thuy ls LastModified Time None Recorded Concern Status LastModified by Organization Details LastModified Time None Recorded Advance Directives Directive None Recorded Payers Insurance Date Sequence Insurance Name Policy Number Policy Oliva Covered Member ID Oliva Member ID Guarantor Name 02/01/2024 1 [facility] ([facility] - [facility]) EDINSON Guerra [id number] Yadiel Guerra Notes Date Note Type Note [...] for ENT on 10/29/2022. Mitzy Ellsworth MD [address] [place] [address], [address], [place] - [facility] 10/14/2022 12:11:37 10/27/19 23 text/htm [...] with head movements Moises Tran MD [address] [place], [address], [employer] 10/26/2022 09:53:06 11/02/19 23 text/htm l Dizziness [...] with head movements JUAN A Soria [address] [facility] [place], [address], [employer] 11/01/2022 09:04:18 09/28/19 24 text/htm l Sore [...] Mitzy Ellsworth MD [address] [place], [address], [place] - [facility] 10/05/2023 11:30:52 02/01/20 24 text/htm l 53 y/o female here with about a month of increasing urinary frequency, with bubbles in the toilet. Also with tingling to fingertips on both hands, for the past year, on and off at first, now constant JUAN A Henderson [address] [place], [address], [place] - [facility] 02/01/2024 11:10:04 OBGyn Episode No OBEpisode recorded.
== END 2024-10-30 15:07 | disposition home or self-care (01) ==
LOC: HO.HOS 14:42
PROVIDERS: PCP Internal Medicine
DX: G56.03 Carpal tunnel syndrome, bilateral upper limbs (principal)
CPT/HCPCS: 99024

== ENCOUNTER → 2024-10-30 14:41 | Outpatient (BNVA) | payer OTHER, SELFPAY | PROVIDERS: PCP Internal Medicine | DX: G56.03 Carpal tunnel syndrome, bilateral upper limbs (principal); R20.2 Paresthesia of skin; Z98.890 Other specified postprocedural states | CPT/HCPCS: 99212 ==